=== PATIENT | male | born 1940 | race Caucasian/White ===

== ENCOUNTER 2025-11-08 12:29 | Inpatient (IN) | payer MEDICARE, BC, SELFPAY ==
--- OUTSIDE RECORDS SUMMARY | 2025-01-17 04:30 | XMS_ITS ---
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 Name Role Phone Vipin Mcclure Primary Care Provider KERRI Villalpando Unavailable [phone] Allergies Allergen (clinical drug ingredient) Drug/Non Drug Allergy documented on EMR Reaction Allergy Type Onset Date Status atorvastatin Lipitor Unknown Drug Allergy 05/18/2021 act andrei lisinopril Lisinopril Unknown Drug Allergy 05/18/2021 acti ve Niaspan Reaction:Reacti on 1:Rash Drug Allergy 05/18/2021 active lifitegrast Xiidra Unknown Drug Allergy Activ e atorvastatin Atorvastatin Unknown Drug Allergy 05/18/2021 active losartan Losartan Unknown Drug Allergy 05/18/2021 active Substance with penicillin structure and antibacterial mechanism of action (substance) Penicillins Reaction:Reacti on 1:Rash Drug Allergy 05/18/2021 active REASON FOR VISIT *General care, *General care, Patient presents to the office for at risk diabetic foot care Medications Medication SIG (Take, Route, Frequency, Duration) Notes Start Date End Date Status metFORMIN HCl 500 MG Tablet Oral; Duration: 90 Days Active OlocodeTouch Ultra - Strip USE TO TEST TWICE DAILY NEEDED DIRECTED In Vitro; Duration: 50 Days Active Gemfibrozil 600 MG Tablet TAKE 1 TABLET BY MOUTH TWICE DAILY Oral; Duration: 90 Days Active Farxiga 5 MG Tablet Oral; Duration: 30 Days Active Timolol Maleate 0.5 % Solution INSTILL 1 DROP IN BOTH EYES TWICE DAILY Ophthalmic; Duration: 90 Days Active Social History Social History Additional Details Category Social Info Options Details Migrated Social History Migrated Social History History of tobacco use : , Smoking Status : Never used tobacco , Alcohol intake : Vital Signs Height 71.00 in 01/17/2025 Weight 155 lbs 01/17/2025 BMI 21.62 kg/m2 01/17/2025 Height-cm 180.34 cm 01/17/2025 Weight-kg 70.31 kg 01/17/2025 Encounters Encounter Location Date Provider Diagnosis [facility] [address] [facility] [address] [place], [place] [id number] 01/17/2025 KERRI MCGUIRE Onychomycosis B35.1 ; Ingrowing nail L60.0 ; Pain in right toe(s) M79.674 ; Pain in left toe(s) M79.675 ; Intermittent claudication of both lower extremities due to atherosclerosis I70.213 ; Difficulty in walking involving ankle and foot joint R26.2 and Type 2 diabetes mellitus with other diabetic neurological complication E11.49 Assessments Encounter Date Diagnosis (ICD Code) Assessment Notes Treatment Notes Treatment Clinical Notes Section Notes 01/17/2025 Onychomycosis (ICD-10 - B35.1) 1. Nails 1-5 Bilateral were debrided extensively with nail nippers and emery board, reducing length and girth to pink healthy tissue with any subungual debris and necrotic tissue removed 2. Patient was instructed on the importance of daily visual inspection of both feet. Patient should report to the office if they see any unusual redness, swelling, open sores, ulcerations or signs of infection. Patient should wear protective shoes around the house 3. Advised patient on appropriate shoe gear for protection, healing and overall foot health 01/17/2025 Ingrowing nail (ICD-10 - L60.0) 01/17/2025 Pain in right toe(s) (ICD-10 - M79.674) 01/17/2025 Pain in left toe(s) (ICD-10 - M79.675) 01/17/2025 Intermittent claudication of both lower extremities due to atherosclerosis (ICD-10 - I70.213) 01/17/2025 Difficulty in walking involving ankle and foot joint (ICD-10 - R26.2) 01/17/2025 Type 2 diabetes mellitus with other diabetic neurological complication (ICD-10 - E11.49) 01/17/2025 Other DIABETIC FOOT CARE: Both feet were examined today. Diabetic preventive care provided as documented. Diabetic foot care education discussed today to including: daily foot inspections, appropriate protective shoe gear, and strict glycemic control. Patient to return to the office routinely for preventive diabetic foot care or sooner if patient notices any acute changes. Emollient: Recommend that the patient use an emollient such as [id number] r Eucerin cream, Vanicream, or other lotion to the affected area. Plan Of Treatment Treatment Notes Assessment Notes Onychomycosis 1. Nails 1-5 Bilateral were debrided extensively with nail nippers and emery board, reducing length and girth to pink healthy tissue with any subungual debris and necrotic tissue removed 2. Patient was instructed on the importance of daily visual inspection of both feet. Patient should report to the office if they see any unusual redness, swelling, open sores, ulcerations or signs of infection. Patient should wear protective shoes around the house 3. Advised patient on appropriate shoe gear for protection, healing and overall foot health Other DIABETIC FOOT CARE: Both feet were examined today. Diabetic preventive care provided as documented. Diabetic foot care education discussed today to including: daily foot inspections, appropriate protective shoe gear, and strict glycemic control. Patient to return to the office routinely for preventive diabetic foot care or sooner if patient notices any acute changes. Emollient: Recommend that the patient use an emollient such as [id number] Eucerin cream, Vanicream, or other lotion to the affected area. Next Appt Details Follow Up: 9 weeks, Reason: at risk foot care Provider Name:KERRI Andreia MCGUIRE, 12/11/2025 03:00:00 PM, [address], [place], [place], [id number], History and Physical Notes * HPI (History of Present Illness) Category Sub-Category Detail Notes Category Not es HPI General care Patient presents to the office for diabetic foot care. Patient states that their nails are thickened, elongated and painful. Patient states that it is aggravated by shoe gear. Onset is gradual., Patient denies taking prescription blood thinners but does take a daily aspirin., Date last seen by Dr. Teixeira was August 2024., Initials JMR Examination Category Sub-Category Detail Notes Category Not es Dermatologic Skin findings: Skin is thin, at rophic and lacking pedal hair. Nail pathology: Nails 1-5 bilateral are elongated, thick, discolored, and dystrophic with subungual debris. They are painful to palpation Ingrown Nail Nail is incurvated o n the lateral border of the right great toenail Neurologic Tinel's sign: negative Vibratory: normal [place] 5.07 monofilament dimini shed protective sensation to the level of the digits via 5.07 g swmf bilateral Vascular Dorsalis pedis pulse: 0/4, bilateral Edema: mild, non-pitting, b ilateral Capillary refill: greater than 3 secon ds Posterior tibial pulse: 0/4, bilaterally Musculoskeletal Muscle Strength Muscle strength is 5/5 in regards to dorsiflexion, plantarflexion, inversion, and eversion in bilateral lower extremities. Constitutional Constitutional The patient is a wake, alert, well developed, well groomed and well nourished. Progress Notes * ROHIT VAZQUEZ TDOB:[birth year] (85 yo M)Acc No.[id number]:01/17/2025 Patient: ROHIT HINOJOSA Provider: Julien Mcguire DPM :1940 A ge:84 Y S ex:Male Date:01/17/2025 Address: [id number] Pcp:Vipin Mcclure Subjective: * Chief Complaints: * * General care*General carePatient presents to the office for at risk diabetic foot care * HPI: H PI: General care P atient presents to the office for diabetic foot care. Patient states that their nails are thickened, elongated and painful. Patient states that it is aggravated by shoe gear. Onset is gradual., Patient denies taking prescription blood thinners but does take a daily aspirin., Date last seen by Dr. Teixeira was August 2024., Initials JMR.? * ROS: G eneral / Constitutional: Patient denies f atigue, fever, pain, weight loss. ? C ardiovascular: Patient denies c hest pain, dizziness, palpitations. ? M usculoskeletal: Patient denies a rthritis, joint stiffness, painful joints, childhood foot problems. P atient complains of g ait (walking problems), muscle cramps.? P eripheral Vascular: Patient denies u lceration of feet, blood clots in legs.?Patient complains of d ecreased sensation in extremities, pain / cramping in legs after exertion, cold extremities. P odiatric: Patient denies b urning of the feet, difficulty walking, fever. S kin: Patient denies d ry skin, discoloration, rash on feet, ulcerations. P atient complains of n ail changes, dry skin. N eurologic: Patient denies d izziness, balance difficulty, seizures.?Patient complains of n umbness, burning/ tingling, gait abnormality. * Medical History: Diabetic * Family History: F ather: PRN - Father: . M other: PRN - Mother: . * Social History: M igrated Social History: M igrated Social History: History of tobacco use : , Smoking Status : Never used tobacco , Alcohol intake :. * Medications: T akingFarxiga 5 MG Tablet Oral Timolol Maleate 0.5 % Solution INSTILL 1 DROP IN BOTH EYES TWICE DAILY Ophthalmic OneTouch Ultra - Strip USE TO TEST TWICE DAILY NEEDED DIRECTED In Vitro metFORMIN HCl 500 MG Tablet Oral Gemfibrozil 600 MG Tablet TAKE 1 TABLET BY MOUTH TWICE DAILY Oral Medication List reviewed and reconciled with the patientTaking Farxiga 5 MG Tablet Oral Taking Timolol Maleate 0.5 % Solution INSTILL 1 DROP IN BOTH EYES TWICE DAILY Ophthalmic Taking OneTouch Ultra - Strip USE TO TEST TWICE DAILY NEEDED DIRECTED In Vitro Taking metFORMIN HCl 500 MG Tablet Oral Taking Gemfibrozil 600 MG Tablet TAKE 1 TABLET BY MOUTH TWICE DAILY Oral Medication List reviewed and reconciled with the patient * Allergies: L ipitor: Allergy - Onset Date 05/18/2021isinopril: Allergy - Onset Date 05/18/2021Niaspan: Reaction:Reaction 1:Rash - Allergy - Onset Date 05/18/2021torvastatin: Allergy - Onset Date 05/18/2021osartan: Allergy - Onset Date 05/18/2021enicillins: Reaction:Reaction 1:Rash - Allergy - Onset Date 05/18/2021Xiidra Objective: * Vitals: W t: 155 lbs, Wt-k.31 kg, Ht: 71.00 in, Ht-cm: 180.34 cm, BMI: 21.62 Index, Body Surface Area: 1.87. * Examination: D ermatologic: Skin findings: S kin is thin, atrophic and lacking pedal hair. Nail pathology: N ails 1-5 bilateral are elongated, thick, discolored, and dystrophic with subungual debris. They are painful to palpation. Ingrown Nail N ail is incurvated on the lateral border of the right great toenail. M usculoskeletal: Muscle Strength M uscle strength is 5/5 in regards to dorsiflexion, plantarflexion, inversion, and eversion in bilateral lower extremities.. ? V ascular: Dorsalis pedis pulse: 0 /4, bilateral. Posterior tibial pulse: 0 /4, bilaterally. Capillary refill: g reater than 3 seconds. Edema: m ild, non-pitting, bilateral. ? N eurologic: Tinel's sign: n egative. Vibratory: n ormal. [place] 5.07 monofilament d iminished protective sensation to the level of the digits via 5.07 g swmf bilateral. C onstitutional: Constitutional T he patient is awake, alert, well developed, well groomed and well nourished.. Assessment: * Assessment: 1. I ngrowing nail - L60.0 (Primary) 2 . O nychomycosis - B35.1 ?3. P ain in right toe(s) - M79.674 4 . P ain in left toe(s) - M79.675? 5. I ntermittent claudication of both lower extremities due to atherosclerosis - I70.213 6 . D ifficulty in walking involving ankle and foot joint - R26.2 7 . T ype 2 diabetes mellitus with other diabetic neurological complication - E11.49? Plan: * Treatment: 2. O thers Notes: DIABETIC FOOT CARE: Both feet were examined today. Diabetic preventive care provided as documented. Diabetic foot care education discussed today to including: daily foot inspections, appropriate protective shoe gear, and strict glycemic control. Patient to return to the office routinely for preventive diabetic foot care or sooner if patient notices any acute changes. E mollient: Recommend that the patient use an emollient such as [id number] Eucerin cream, Vanicream, or other lotion to the affected area. * Follow Up: 9 weeks (Reason: at risk foot care) Billing Information: * Visit Code: 45322 Office Visit, Est Pt., Level 3. * Procedure Codes: * Electronic signature of CASSY HUYNH DPM on 11/08/2025 at 03:20 PM SORTER PRICER Sign off status: Pending * Provider: Julien Mcguire DPM Date: 0 01/17/2025 Generated for Emmy nova/Ti/Yogesh on: 01/09/2025 03:20 PM SORTER PRICER
--- OUTSIDE RECORDS SUMMARY | 2025-03-21 04:40 | XMS_ITS ---
Author Organization [facility] Address [address] [place], [place] [id number] Care Team Providers Care Blow Down Helper Name Role Phone Vipin Mcclure Primary Care Provider KERRI Villalpando Unavailable [phone] Allergies Allergen (clinical drug ingredient) Drug/Non Drug [...] 05/18/2021 active REASON FOR VISIT *General care, Patient presents to the office for at risk diabetic foot care, Wound Right Heel Medications Medication SIG (Take, Route, Frequency, Duration) Notes Start Date End Date Status metFORMIN HCl 500 MG Tablet Oral; Duration: 90 Days Active Net[employer] Innov[employer] IncTouch Ultra - Strip USE TO TEST TWICE DAILY NEEDED DIRECTED In Vitro; Duration: 50 Days Active Gemfibrozil 600 MG Tablet TAKE 1 TABLET BY MOUTH TWICE DAILY Oral; Duration: 90 Days Active Doxycycline Hyclate 100 MG Capsule 1 capsule Orally Twice a day; Duration: 7 days 03/21/2025 03/28/2025 Active Timolol Maleate 0.5 % Solution INSTILL 1 DROP IN BOTH EYES TWICE DAILY Ophthalmic; Duration: 90 Days Active Medihoney Wound/Burn Dressing - Gel apply to wound on right heel Externally daily; Duration: 30 days needs 80% medihoney, please order for patient if you do not have he is diabetic with a wound and needs to be treated thank you 03/21/2025 07/19/2025 Active Farxiga 5 MG Tablet Oral; Duration: 30 Days Active Social History Social History Additional Details Category Social Info Options Details Migrated Social History Migrated Social History History of tobacco use : , Smoking Status : Never used tobacco , Alcohol intake : Vital Signs Height 71.00 in 03/21/2025 Weight 155 lbs 03/21/2025 BMI 21.62 kg/m2 03/21/2025 Height-cm 180.34 cm 03/21/2025 Weight-kg 70.31 kg 03/21/2025 Encounters Encounter Location Date Provider Diagnosis [facility] [address] [facility] [address] [place], [place] [phone] 03/21/2025 KERRI MCGUIRE Onychomycosis B35.1 ; Ingrowing nail [...] Treatment Notes Treatment Clinical Notes Section Notes 03/21/2025 Onychomycosis (ICD-10 - B35.1) 1. 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 Diabetic preventive care provided as documented. Diabetic foot care education discussed today to including: daily foot inspections, appropriate protective shoe gear, and strict glycemic control. Patient to return to the office routinely for preventive diabetic foot care or sooner if patient notices any acute changes. 03/21/2025 Other Emollient: Recommend that the patient use an emollient such as dreu-peq-qcvslws Eucerin cream, Vanicream, or other lotion to the affected area. Ulcer Debridement: Right Heel Using a 15 blade, the ulcer was sharply debrided down to bleeding tissue. The nonviable tissue was sharply debrided down to the layer of subcutaneous tissue. A dry sterile dressing was applied. Ulcer Plan of Care: The treatment goals are closure of the ulceration within an appropriate time frame. This will require regular debridements every 2 weeks until skin closure has been met. The patient will come in sooner than 2 weeks if the wound develops any signs of infection or deteriorates. The plan of care will be reviewed every month. If there is no change in the size of the wound, we will re evaluate debridement schedule, topical medications being used, as well as modify techniques for offloading the wound. KELLY GRADING SYSTEM Grade 0: Pre-ulcerative Lesion, healed ulcers, presence of bone deformity Grade 1: Superficial Ulcer without subcutaneous tissue involvement Grade 2: Penetration through the subcutaneous tissue (may expose bone, tendon, ligament or joint capsule) Grade 3: Osteitis, abscess or osteomyelitis Grade 4: Gangrene of the foot. Based on clinical findings, the patient has the following grade ulceration: grade 1 Medihoney prescribed to patient - apply to wound daily The patient was given an antibiotic prescription for Doxycycline 100mg, take until finished to prevent resistance. Plan Of Treatment Medication Medication Name Sig Start Date Stop Date Notes Doxycycline Hyclate 100 MG Capsule 1 capsule Orally Twice a day; Duration: 7 days 03/21/2025 03/28/2025 Medihoney Wound/Burn Dressing - Gel apply to wound on right heel Externally daily; Duration: 30 days 03/21/2025 07/19/2025 needs 80% medihoney, please order for patient if you do not have he is diabetic with a wound and needs to be treated thank you Treatment Notes Assessment Notes Onychomycosis 1. Nails [...] for protection, healing and overall foot health Type 2 diabetes mellitus wit h other diabetic neurological complication DIABETIC FOOT CARE: Both feet were examined today. Diabetic preventive care provided as documented. Diabetic foot care education discussed today to including: daily foot inspections, appropriate protective shoe gear, and strict glycemic control. Patient to return to the office routinely for preventive diabetic foot care or sooner if patient notices any acute changes. Other Emollient: Recommend that the patient use an emollient such as [id number]-[id number] Eucerin cream, Vanicream, or other lotion to the affected area. Ulcer Debridement: Right Heel Using a 15 blade, the ulcer was sharply debrided down to bleeding tissue. The nonviable tissue was sharply debrided down to the layer of subcutaneous tissue. A dry sterile dressing was applied. Ulcer Plan of Care: The treatment goals are closure of the ulceration within an appropriate time frame. This will require regular debridements every 2 weeks until skin closure has been met. The patient will come in sooner than 2 weeks if the wound develops any signs of infection or deteriorates. The plan of care will be reviewed every month. If there is no change in the size of the wound, we will re evaluate debridement schedule, topical medications being used, as well as modify techniques for offloading the wound. KELLY GRADING SYSTEM Grade 0: Pre-ulcerative Lesion, healed ulcers, presence of bone deformity Grade 1: Superficial Ulcer without subcutaneous tissue involvement Grade 2: Penetration through the subcutaneous tissue (may expose bone, tendon, ligament or joint capsule) Grade 3: Osteitis, abscess or osteomyelitis Grade 4: Gangrene of the foot. Based on clinical findings, the patient has the following grade ulceration: grade 1 Medihoney prescribed to patient - apply to wound daily The patient was given an antibiotic prescription for Doxycycline 100mg, take until finished to prevent resistance. Next Appt Details Follow Up: 3 Weeks, Reason: wound check Provider Name:KERRI MCGUIRE, 12/11/2025 03:00:00 PM, [address] [facility] [address], [place], [place], [phone], History and Physical Notes * HPI (History [...] daily aspirin., Date last seen by Dr. Mcclure was October 2024. , Initials ars New wound on right heel, noticed about a week ago. Denies injury. Examination Category Sub-Category Detail Notes Category Not es Dermatologic Skin findings: Skin is thin, at rophic and lacking pedal hair. Nail pathology: Nails 1-5 bilateral are elongated, thick, discolored, and dystrophic with subungual debris. They are painful to palpation Ulcer: There is an ulcerati on present on the medial posterior heel of the right foot. , The ulceration measures 0.5cm x 0.4cm, The ulcer has, no signs of infection, The wound base is, granular, The borders are, healthy, The drainage is, serous, The wound has no foul odor., The wound, does not undermine Ingrown Nail Nail is incurvated o n the lateral border of the right great toenail Neurologic Tinel's sign: negative Vibratory: normal [place] 5.07 monofilament dimini shed protective sensation to [...] ROHIT VAZQUEZ TDOB:[birth year] (85 yo M)Acc No.[id number]:03/21/2025 Patient: ROHIT HINOJOSA Provider: Julien Mcguire DPM :1940 A ge:85 Y S ex:Male Date:03/21/2025 Address: [address], [id number] Pcp:Vipin Mcclure Subjective: * Chief Complaints: * * General carePatient presents to the office for at risk diabetic foot careWound Right Heel * HPI: H PI: General care P atient presents to the office for diabetic foot care. Patient states that their nails are thickened, elongated and painful. Patient states that it is aggravated by shoe gear. Onset is gradual., Patient denies taking prescription blood thinners but does take a daily aspirin., Date last seen by Dr. Mcclure was October 2024. , Initials ars.? New wound on right heel, noticed about a week ago. Denies injury. * ROS: G eneral / Constitutional: Patient [...] subungual debris. They are painful to palpation. Ulcer: T here is an ulceration present on the medial posterior heel of the right foot. , The ulceration measures 0.5cm x 0.4cm, The ulcer has, no signs of infection, The wound base is, granular, The borders are, healthy, The drainage is, serous, The wound has no foul odor., The wound, does not undermine. Ingrown Nail N ail is incurvated on [...] Tinel's sign: n egative. Vibratory: n ormal. [place] 5.07 monofilament d iminished protective sensation to [...] complication - E11.49? Plan: * Treatment: 2. T ype 2 diabetes mellitus with other diabetic neurological complication Notes: DIABETIC FOOT CARE: Both feet were examined today. Diabetic preventive care provided as documented. Diabetic foot care education discussed today to including: daily foot inspections, appropriate protective shoe gear, and strict glycemic control. Patient to return to the office routinely for preventive diabetic foot care or sooner if patient notices any acute changes. 3. O thers Start Medihoney Wound/Burn Dressing Gel, -, apply to wound on right heel, Externally, daily, 30 days, 1 Applicator, Refills 3, Notes to Pharmacist: needs 80% medihoney, please order for patient if you do not have he is diabetic with a wound and needs to be treated thank you; S tart Doxycycline Hyclate Capsule, 100 MG, 1 capsule, Orally, Twice a day, 7 days, 14 Capsule, Refills 0. Notes: E mollient: Recommend that the patient use an emollient such as nfqx-yqh-ejcfasu Eucerin cream, Vanicream, or other lotion to the affected area. U lcer Debridement: R ight Heel Using a 15 blade, the ulcer was sharply debrided down to bleeding tissue. The nonviable tissue was sharply debrided down to the layer of subcutaneous tissue. A dry sterile dressing was applied. U lcer Plan of Care: The treatment goals are closure of the ulceration within an appropriate time frame. This will require regular debridements every 2 weeks until skin closure has been met. The patient will come in sooner than 2 weeks if the wound develops any signs of infection or deteriorates. The plan of care will be reviewed every month. If there is no change in the size of the wound, we will re evaluate debridement schedule, topical medications being used, as well as modify techniques for offloading the wound. KELLY GRADING SYSTEM Grade 0: Pre-ulcerative Lesion, healed ulcers, presence of bone deformity Grade 1: Superficial Ulcer without subcutaneous tissue involvement Grade 2: Penetration through the subcutaneous tissue (may expose bone, tendon, ligament or joint capsule) Grade 3: Osteitis, abscess or osteomyelitis Grade 4: Gangrene of the foot. Based on clinical findings, the patient has the following grade ulceration: g serg veliz prescribed to patient - apply to wound daily T he patient was given an antibiotic prescription for Doxycycline 100mg, take until finished to prevent resistance. * Follow Up: 3 Weeks (Reason: wound check) Billing Information: * Procedure Codes: * Electronic signature of CASSY HUYNH DPM on 11/08/2025 at 03:21 PM GAS ANALYST Sign off status: Pending * Provider: Julien Mcguire DPM Date: 0 03/21/2025 Generated for Emmy nova/Ti/Yogesh on: 01/09/2025 03:21 PM GAS ANALYST
--- OUTSIDE RECORDS SUMMARY | 2025-04-11 04:30 | XMS_ITS ---
Author Organization [facility] Address [address] [place], [place] [phone] Care Team Providers Care Plug Drill Operator Name Role Phone Vipin Mcclure Primary Care Provider KERRI Villalpando Unavailable [phone] Allergies Allergen (clinical drug ingredient) Drug/Non Drug [...] Drug Allergy 05/18/2021 active REASON FOR VISIT *Wound check Medications Medication SIG (Take, Route, Frequency, Duration) Notes Start Date End Date Status OneTouch Ultra - Strip USE TO TEST TWICE DAILY NEEDED DIRECTED In Vitro; Duration: 50 Days Active Timolol Maleate 0.5 % Solution INSTILL 1 DROP IN BOTH EYES TWICE DAILY Ophthalmic; Duration: 90 Days Active Gemfibrozil 600 MG Tablet TAKE 1 TABLET BY MOUTH TWICE DAILY Oral; Duration: 90 Days Active metFORMIN HCl 500 MG Tablet Oral; Duration: 90 Days Active Medihoney Wound/Burn Dressing [...] Never used tobacco , Alcohol intake : Encounters Encounter Location Date Provider Diagnosis [facility] [address] [place], [place] [phone] 04/11/2025 KERRI MCGUIRE Ingrowing nail L60.0 ; 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 ; Onychomycosis B35.1 ; Pain in right toe(s) M79.674 ; Pain in left toe(s) M79.675 ; Intermittent claudication of both lower extremities due to atherosclerosis I70.213 ; Difficulty in walking involving ankle and foot joint R26.2 and Type 2 diabetes mellitus with other diabetic neurological complication E11.49 Assessments Encounter Date Diagnosis (ICD Code) Assessment Notes Treatment Notes Treatment Clinical Notes Section Notes 04/11/2025 Ingrowing nail (ICD-10 - L60.0) 04/11/2025 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 FUNGAL TOENAILS: Discussed various treatment options for fungal toenails including debridement, topical antifungals, oral antifungals, toenail avulsion, or toenail matrixectomy.fab 2. Patient was instructed on the importance of daily visual inspection of both feet. Patient should report to the office if they see any unusual redness, swelling, open sores, ulcerations or signs of infection. Patient should wear protective shoes around the house 3. Advised patient on appropriate shoe gear for protection, healing and overall foot health 04/11/2025 Pain in right toe(s) (ICD-10 - M79.674) 04/11/2025 Pain in left toe(s) (ICD-10 - M79.675) 04/11/2025 Intermittent claudication of both lower extremities due to atherosclerosis (ICD-10 - I70.213) 04/11/2025 Difficulty in walking involving ankle and foot joint (ICD-10 - R26.2) 04/11/2025 Type 2 diabetes mellitus with other diabetic [...] sooner if patient notices any acute changes. 04/11/2025 Other Emollient: Recommend that the patient use an emollient such as givv-tcp-murwvdq Eucerin cream, Vanicream, or other lotion to [...] to patient - apply to wound daily Plan Of Treatment Treatment Notes Assessment Notes Onychomycosis 1. FUNGAL TOENAILS: Discussed various treatment options for fungal toenails including debridement, topical antifungals, oral antifungals, toenail avulsion, or toenail matrixectomy.fab 2. Patient was instructed on the importance [...] the patient use an emollient such as gwen-xzh-cweeodj Eucerin cream, Vanicream, or other lotion to [...] to patient - apply to wound daily Next Appt Details Follow Up: 3 Weeks, Reason: wound check Provider Name:KERRI MCGUIRE, 12/11/2025 03:00:00 PM, [address] [facility] [address], [place], [phone], History and Physical Notes * HPI (History of Present Illness) Category Sub-Category Detail Notes Category Not es HPI Follow Up Visit Patient presents for follow-up visit for a wound on his right heel. Patient states their problem is, improving. Patient states that the doxycycline made him sick, but he was able to finish it, and it has helped. MA: ars Examination Category Sub-Category Detail Notes Category Not es Dermatologic Skin findings: Skin is thin, at rophic and lacking pedal hair. Nail pathology: Nails 1-5 bilateral are elongated, thick, discolored, and dystrophic with subungual debris. They are painful to palpation Ulcer: There is an ulcerati on present on the medial posterior heel of the right foot. , The ulceration measures 0.3cm x 0.3cm, The ulcer has, no signs of infection, The wound base is, granular, The borders are, healthy, The drainage is, serous, The wound has no foul odor., The wound, does not undermine Ingrown Nail Nail is incurvated o n the lateral border of the right great toenail Neurologic Tinel's sign: negative Vibratory: normal [place] 5.07 monofilament dimini shed protective sensation to [...] ROHIT VAZQUEZ TDOB:[birth year] (85 yo M)Acc No.[id number]:04/11/2025 Patient: ROHIT HINOJOSA T Provider: Julien Mcguire DPM :1940 A ge:85 Y S ex:Male Date:04/11/2025 Address: [id number] Pcp:Vipin Mcclure Subjective: * Chief Complaints: * * Wound check * HPI: H PI: Follow Up Visit P malaient presents for follow-up visit for a wound on his right heel. Patient states their problem is, improving. Patient states that the doxycycline made him sick, but he was able to finish it, and it has helped. MA: ars. * ROS: G eneral / Constitutional: Patient [...] 1 TABLET BY MOUTH TWICE DAILY Oral Medihoney Wound/Burn Dressing - Gel apply to wound on right heel Externally daily , stop date 07/19/2025, Notes to Pharmacist: needs 80% serafinhobreann, please order for patient if you do not have he is diabetic with a wound and needs to be treated thank youMedication List reviewed and reconciled with the patientTaking Farxiga 5 MG Tablet Oral Taking Timolol Maleate 0.5 % Solution INSTILL 1 DROP IN BOTH EYES TWICE DAILY Ophthalmic Taking OneTouch Ultra - Strip USE TO TEST TWICE DAILY NEEDED DIRECTED In Vitro Taking metFORMIN HCl 500 MG Tablet Oral Taking Gemfibrozil 600 MG Tablet TAKE 1 TABLET BY MOUTH TWICE DAILY Oral Taking Medihoney Wound/Burn Dressing - Gel apply to wound on right heel Externally daily , stop date 07/19/2025, Notes to Pharmacist: needs 80% medihoney, please order for patient if you do not have he is diabetic with a wound and needs to be treated thank youMedication List reviewed and reconciled with the patient * Allergies: L ipitor: Allergy - Onset Date 05/18/2021isinopril: Allergy - Onset Date 05/18/2021Niaspan: Reaction:Reaction 1:Rash - Allergy - Onset Date 05/18/2021torvastatin: Allergy - Onset Date 05/18/2021osartan: Allergy - Onset Date 05/18/2021enicillins: Reaction:Reaction 1:Rash - Allergy - Onset Date 05/18/2021Xiidra Objective: * Examination: D ermatologic: Skin findings: S kin is thin, atrophic and lacking pedal hair. Nail pathology: N ails 1-5 bilateral are elongated, thick, discolored, and dystrophic with subungual debris. They are painful to palpation. Ulcer: T here is an ulceration present on the medial posterior heel of the right foot. , The ulceration measures 0.3cm x 0.3cm, The ulcer has, no signs of infection, [...] Tinel's sign: n egative. Vibratory: n ormal. [place] 5.07 monofilament d iminished protective sensation to the level of the digits via 5.07 g swmf bilateral. C onstitutional: Constitutional T he patient is awake, alert, well developed, well groomed and well nourished.. Assessment: * Assessment: 1. 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 I ngrowing nail - L60.0 3 . O nychomycosis - B35.1 4 . P ain in right toe(s) - M79.674 5 . P ain in left toe(s) - M79.675 6 . I ntermittent claudication of both lower extremities due to atherosclerosis - I70.213 7 . D ifficulty in walking involving ankle and foot joint - R26.2 8 . 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 T ype 2 [...] notices any acute changes. 3. O thers Notes: E mollient: Recommend that the patient use an emollient such as bfey-utt-cnujzto Eucerin cream, Vanicream, or other lotion to [...] patient has the following grade ulceration: g rade 1 M keren prescribed to patient - apply to wound daily * Procedure Codes: 1 1042 DEBRIDE SKIN/TISSUE * Follow Up: 3 Weeks (Reason: wound check) Billing Information: * Procedure Codes: 10941 DEBRIDE SKIN/TISSUE. * Electronic signature of CASSY HUYNH DPM on 11/08/2025 at 03:25 PM DRY WALL APPLICATOR Sign off status: Pending * Provider: Julien Mcguire DPM Date: 0 04/11/2025 Generated for Emmy noav/Ti/Stevenitting on: 1 01/09/2025 03:25 PM DRY WALL APPLICATOR
--- OUTSIDE RECORDS SUMMARY | 2025-05-01 07:00 | XMS_ITS ---
Author Organization [facility] Address [address] [place], [place] [id number] Care Team Providers Care Cutter Hot Knife Name Role Phone Vipin Mcclure Primary Care Provider KERRI Villalpando Unavailable [phone] Allergies Allergen (clinical drug ingredient) Drug/Non Drug [...] Allergy 05/18/2021 active REASON FOR VISIT *Wound check, *Wound check right heel Medications Medication SIG (Take, Route, Frequency, Duration) Notes Start Date End Date Status Timolol Maleate 0.5 % Solution INSTILL 1 DROP IN BOTH EYES TWICE DAILY Ophthalmic; Duration: 90 Days Active Gemfibrozil 600 MG Tablet TAKE 1 TABLET BY MOUTH TWICE DAILY Oral; Duration: 90 Days Active Medihoney Wound/Burn Dressing - Gel apply to wound on right heel Externally daily; Duration: 30 days needs 80% medihoney, please order for patient if you do not have he is diabetic with a wound and needs to be treated thank you 03/21/2025 07/19/2025 Active OneTouch Ultra - Strip USE TO TEST TWICE DAILY NEEDED DIRECTED In Vitro; Duration: 50 Days Active metFORMIN HCl 500 MG Tablet Oral; Duration: 90 Days Active Farxiga 5 MG Tablet Oral; Duration: 30 Days Active Social History Social History Additional Details Category Social Info Options Details Migrated Social History Migrated Social History History of tobacco use : , Smoking Status : Never used tobacco , Alcohol intake : Encounters Encounter Location Date Provider Diagnosis [facility] [address] [place], [place] [phone] 05/01/2025 KERRI MCGUIRE Ingrowing nail L60.0 ; Non-pressure [...] Treatment Notes Treatment Clinical Notes Section Notes 05/01/2025 Ingrowing nail (ICD-10 - L60.0) 05/01/2025 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 FUNGAL TOENAILS: [...] for protection, healing and overall foot health 05/01/2025 Pain in right toe(s) (ICD-10 - M79.674) 05/01/2025 Pain in left toe(s) (ICD-10 - M79.675) 05/01/2025 Intermittent claudication of both lower extremities due to atherosclerosis (ICD-10 - I70.213) 05/01/2025 Difficulty in walking involving ankle and foot joint (ICD-10 - R26.2) 05/01/2025 Type 2 diabetes mellitus with other diabetic [...] sooner if patient notices any acute changes. 05/01/2025 Other Emollient: Recommend that the patient use an emollient such as oikh-miq-datnudl Eucerin cream, Vanicream, or other lotion to [...] has the following grade ulceration: grade 1 Continue medihoney- apply to wound daily, apply gauze and paper tape or band-aid Instructed patient to stop the peroxide on the wound as this causes more damage and irritation to the skin, wash with soap and water or wound wash solution instead before applying medihoney. Plan Of Treatment Treatment Notes Assessment Notes [...] the patient use an emollient such as lihu-aim-vsjuclk Eucerin cream, Vanicream, or other lotion to [...] has the following grade ulceration: grade 1 Continue medihoney- apply to wound daily, apply gauze and paper tape or band-aid Instructed patient to stop the peroxide on the wound as this causes more damage and irritation to the skin, wash with soap and water or wound wash solution instead before applying medihoney. Next Appt Details Follow Up: 4 Weeks, Reason: wound check and at risk foot care Provider Name:KERRI MCGUIRE, 12/11/2025 03:00:00 PM, [address], [place], [place], [phone], History and Physical Notes * HPI (History of Present Illness) Category Sub-Category Detail Notes Category Not es HPI Follow Up Visit Patient presents for follow up visit for wound check., Patient states their problem is, improving. Still a little sensitive. Has slight pain but not too bad., MA: mf States he has been putting peroxide on the wound daily then medihoney and bandaid Examination Category Sub-Category Detail Notes Category Not [...] toenail Neurologic Tinel's sign: negative Vibratory: normal [place] 5.07 monofilament dimini shed protective sensation to [...] ROHIT VAZQUEZ TDOB:[birth year] (85 yo M)Acc No.[id number]:05/01/2025 Patient: Dakota MATHEWAMAURYPIETER BUTTEN Cassandra Provider: Julien Mcguire DPM :1940 A ge:85 Y S ex:Male Date:05/01/2025 [address] [id number] Pcp:Vipin Mcclure Subjective: * Chief Complaints: * * Wound check*Wound check right heel * HPI: H PI: Follow Up Visit P atient presents for follow up visit for wound check., Patient states their problem is, improving. Still a little sensitive. Has slight pain but not too bad., MA: mf. States he has been putting peroxide on the wound daily then medihoney and bandaid. * ROS: G eneral / Constitutional: Patient [...] tingling, gait abnormality. * Medical History: Diabetic Medical History Verified * Family History: F ather: PRN - Father: . M other: PRN - Mother: . F amily History Verified.. * Social History: M igrated Social History: M igrated Social History: History of tobacco use : , Smoking Status : Never used tobacco , Alcohol intake :. Social History Verified. * Medications: T akingFarxiga 5 MG Tablet [...] date 07/19/2025, Notes to Pharmacist: needs 80% hung, please order for patient if you do [...] date 07/19/2025, Notes to Pharmacist: needs 80% hung, please order for patient if you do not have he is diabetic with a wound and needs to be treated thank youMedication List reviewed and reconciled with the patient * Allergies: L ipitor: Allergy - Onset Date 05/18/2021isinopril: Allergy - Onset Date 05/18/2021Niaspan: Reaction:Reaction 1:Rash - Allergy - Onset Date 1Atorvastatin: Allergy - Onset Date 05/18/2021osartan: Allergy - Onset Date 05/18/2021enicillins: Reaction:Reaction 1:Rash - Allergy - Onset Date 05/18/2021XiidrayesAllergies Verified. Objective: * Examination: D ermatologic: Skin findings: [...] Tinel's sign: n egative. Vibratory: n ormal. [place] 5.07 monofilament d iminished protective sensation to [...] the patient use an emollient such as negm-gpw-duhwkyd Eucerin cream, Vanicream, or other lotion to [...] the following grade ulceration: g rade 1 Continue medihoney- apply to wound daily, apply gauze and paper tape or band-aid Instructed patient to stop the peroxide on the wound as this causes more damage and irritation to the skin, wash with soap and water or wound wash solution instead before applying medihoney. * Procedure Codes: 1 1042 DEBRIDE SKIN/TISSUE * Follow Up: 4 Weeks (Reason: wound check and at risk foot care) Billing Information: * Procedure Codes: 33135 DEBRIDE SKIN/TISSUE. * Electronic signature of CASSY HUYNH DPM on 11/08/2025 at 03:20 PM STRAP MAKER Sign off status: Pending * Provider: Julien Mcguire DPM Date: 0 05/01/2025 Generated for Emmy nova/Ti/Stevenitting on: 1 01/09/2025 03:20 PM STRAP MAKER
--- OUTSIDE RECORDS SUMMARY | 2025-05-30 05:20 | XMS_ITS ---
Author Organization [facility] Address [address] [place], [place] [id number] Care Team Providers Care Human Geography Instructor Name Role Phone Vipin Mcclure Primary Care Provider KERRI Villalpando Unavailable [phone] Allergies Allergen (clinical drug ingredient) Drug/Non Drug [...] 05/18/2021 active REASON FOR VISIT *General care, *Wound check right heel, Patient presents for at risk diabetic foot care Medications Medication SIG (Take, Route, Frequency, Duration) Notes Start Date End Date Status Medihoney Wound/Burn Dressing - Gel apply to wound on right heel Externally daily; Duration: 30 days needs 80% medihoney, please order for patient if you do not have he is diabetic with a wound and needs to be treated thank you 03/21/2025 07/19/2025 Active metFORMIN HCl 500 MG Tablet Oral; Duration: 90 Days Active Gemfibrozil 600 MG Tablet TAKE 1 TABLET BY MOUTH TWICE DAILY Oral; Duration: 90 Days Active Timolol Maleate 0.5 % Solution INSTILL 1 DROP IN BOTH EYES TWICE DAILY Ophthalmic; Duration: 90 Days Active OneTouch Ultra - Strip USE TO TEST TWICE DAILY NEEDED DIRECTED In Vitro; Duration: 50 Days Active Farxiga 5 MG Tablet Oral; Duration: 30 Days Active Social History Social History Additional Details Category Social Info Options Details Migrated Social History Migrated Social History History of tobacco use : , Smoking Status : Never used tobacco , Alcohol intake : Vital Signs Height 71.00 in 05/30/2025 Weight 155 lbs 05/30/2025 BMI 21.62 kg/m2 05/30/2025 Height-cm 180.34 cm 05/30/2025 Weight-kg 70.31 kg 05/30/2025 Encounters Encounter Location Date Provider Diagnosis [facility] [address] [facility] [address] [place], [place] [phone] 05/30/2025 KERRI MCGUIRE 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 ; Onychomycosis B35.1 ; Ingrowing nail L60.0 ; [...] Treatment Notes Treatment Clinical Notes Section Notes 05/30/2025 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 Referral to wound center. 05/30/2025 Onychomycosis (ICD-10 - B35.1) 1. FUNGAL TOENAILS: Discussed various treatment options for fungal toenails including debridement, topical antifungals, oral antifungals, toenail avulsion, or toenail matrixectomy. 2. Patient was instructed on the importance of daily visual inspection of both feet. Patient should report to the office if they see any unusual redness, swelling, open sores, ulcerations or signs of infection. Patient should wear protective shoes around the house 3. Advised patient on appropriate shoe gear for protection, healing and overall foot health 05/30/2025 Ingrowing nail (ICD-10 - L60.0) 05/30/2025 Pain in right toe(s) (ICD-10 - M79.674) 05/30/2025 Pain in left toe(s) (ICD-10 - M79.675) 05/30/2025 Intermittent claudication of both lower extremities due to atherosclerosis (ICD-10 - I70.213) 05/30/2025 Difficulty in walking involving ankle and foot joint (ICD-10 - R26.2) 05/30/2025 Type 2 diabetes mellitus with other diabetic [...] sooner if patient notices any acute changes. 05/30/2025 Other Emollient: Recommend that the patient use an emollient such as vjun-xed-qannwk r Eucerin cream, Vanicream, or other lotion to the affected area. Plan Of Treatment Treatment Notes Assessment Notes Non-pressure chronic ulcer o f right heel and midfoot limited to breakdown of skin 1. Referral to wound center. Onychomycosis 1. FUNGAL TOENAILS: Discussed various treatment options for fungal toenails including debridement, topical antifungals, oral antifungals, toenail avulsion, or toenail matrixectomy. 2. Patient was instructed on the importance [...] the patient use an emollient such as htvo-mnt-cxtdose Eucerin cream, Vanicream, or other lotion to the affected area. Next Appt Details Follow Up: 9 weeks, Reason: at risk foot care Provider Name:KERRI MCGUIRE, 12/11/2025 03:00:00 PM, [address] [facility] [address], [place], [place], [phone], History and Physical Notes * HPI (History of Present Illness) Category Sub-Category Detail Notes Category Not es HPI General care Patient presents to the office for diabetic foot care. Patient states that their nails are thickened, elongated and painful. Patient states that it is aggravated by shoe gear. Onset is gradual., Patient is taking prescription blood thinners., Date last seen by Dr. Mcclure was 04/2025. , Initials KB Examination Category Sub-Category Detail Notes Category Not es Dermatologic Skin findings: Skin is thin, at rophic and lacking pedal hair. Nail pathology: Nails 1-5 bilateral are elongated, thick, discolored, and dystrophic with subungual debris. They are painful to palpation , Ulcer: There is an ulcerati on present on the medial posterior heel of the right foot. , The ulceration measures 0.3cm x 0.3cm, The ulcer has, no signs of infection, The wound base is, granular, The borders are, healthy, The drainage is, serous, The wound has no foul odor., The wound, does not undermine. Ingrown Nail Nail is incurvated o n the lateral border of the right great toenail Neurologic Tinel's sign: negative Vibratory: normal [place] 5.07 monofilament dimini shed protective sensation to the level of the digits via 5.07 g swmf bilateral Vascular Dorsalis pedis pulse: 0/4, bilateral Edema: mild, non-pitting, b ilateral Capillary refill: greater than 3 secon ds Posterior tibial pulse: 1/4, bilaterally Musculoskeletal Muscle Strength Muscle strength is 5/5 in regards to dorsiflexion, plantarflexion, inversion, and eversion in bilateral lower extremities Constitutional Constitutional The patient is a wake, alert, well developed, well groomed and well nourished. Progress Notes * ROHIT VAZQUEZ TDOB:[birth year] (85 yo M)Acc No.[id number]:05/30/2025 Patient: Dakota ROHIT DAVIS Provider: Julien Mcguire DPM :1940 A ge:85 Y S ex:Male Date:05/30/2025 Address: [address], [id number] Pcp:Vipin Mcclure Subjective: * Chief Complaints: * * General care*Wound check right heelPatient presents for at risk diabetic foot care * HPI: H PI: General care P atient presents to the office for diabetic foot care. Patient states that their nails are thickened, elongated and painful. Patient states that it is aggravated by shoe gear. Onset is gradual., Patient is taking prescription blood thinners., Date last seen by Dr. Mcclure was 04/2025. , Initials KB. * ROS: G eneral / Constitutional: Patient denies f atigue, fever, pain, weight loss,. ? C ardiovascular: Patient denies c hest pain, dizziness, palpitations, . ? M usculoskeletal: Patient denies a rthritis, joint stiffness, painful joints, childhood foot problems. P atient complains of g ait (walking problems), muscle cramps,.? P eripheral Vascular: Patient denies u lceration of feet, blood clots in legs.?Patient complains of d ecreased sensation in extremities, pain / cramping in legs after exertion, cold extremities. P odiatric: Patient denies b urning of the feet, difficulty walking, fever, burning of the feet, difficulty walking, fever. S kin: Patient denies d ry skin, discoloration, rash on feet, ulcerations. P atient complains of n ail changes, dry skin, nail changes, dry skin. ? N eurologic: Patient denies d izziness, balance difficulty, seizures.?Patient complains of n umbness, burning/ tingling, gait abnormality. * Medical History: Diabetic Medical History Verified * Surgical History: Denies Past Surgical History. Surgical History verified. * Hospitalization/Major Diagno stic Procedure: Denies Past Hospitalization. Hospitalization Verified. * Family History: F ather: PRN - [...] date 07/19/2025, Notes to Pharmacist: [facility] [address] please order for patient if you do [...] date 07/19/2025, Notes to Pharmacist: needs 80% [employer] base mdl, please order for patient if you do [...] - Onset Date 05/18/2021XiidrayesAllergies Verified. Objective: * Vitals: W t: 155 lbs, Wt-k.31 kg, Ht: 71.00 in, Ht-cm: 180.34 cm, BMI: 21.62 Index, Body Surface Area: 1.87. * Examination: D ermatologic: Skin findings: S kin is thin, atrophic and lacking pedal hair. Nail pathology: N ails 1-5 bilateral are elongated, thick, discolored, and dystrophic with subungual debris. They are painful to palpation , . Ulcer: T here is an ulceration present on the medial posterior heel of the right foot. , T he ulceration measures 0.3cm x 0.3cm, T he ulcer has, n o signs of infection, T he wound base is, g ranular, T he borders are, h ealthy, T he drainage is, s erous, T he wound has no foul odor., T he wound, d oes not undermine. . Ingrown Nail N ail is incurvated on the lateral border of the right great toenail . M usculoskeletal: Muscle Strength M uscle strength is 5/5 in regards to dorsiflexion, plantarflexion, inversion, and eversion in bilateral lower extremities. ? V ascular: Dorsalis pedis pulse: 0 /4, bilateral. Posterior tibial pulse: 1 /4, bilaterally . Capillary refill: g reater than 3 seconds. Edema: m ild, non-pitting, bilateral. ? N eurologic: Tinel's sign: n egative . Vibratory: n ormal. [place] 5.07 monofilament d iminished protective sensation to the level of the digits via 5.07 g swmf bilateral. C onstitutional: Constitutional T he patient is awake, alert, well developed, well groomed and well nourished. . Assessment: * Assessment: 1. 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 O nychomycosis - B35.1 3 . I ngrowing nail - L60.0 4 . P ain in right toe(s) - M79.674 5 . P ain in left toe(s) - M79.675 6 . I ntermittent claudication of both lower extremities due to atherosclerosis - I70.213 7 . D ifficulty in walking involving ankle and foot joint - R26.2 8 . 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 O nychomycosis Notes: 1. FUNGAL TOENAILS: Discussed various treatment options for fungal toenails including debridement, topical antifungals, oral antifungals, toenail avulsion, or toenail matrixectomy. 2. Patient was instructed on the importance of daily visual inspection of both feet. Patient should report to the office if they see any unusual redness, swelling, open sores, ulcerations or signs of infection. Patient should wear protective shoes around the house 3 . Advised patient on appropriate shoe gear for protection, healing and overall foot health? 3. T ype 2 diabetes mellitus with other [...] sooner if patient notices any acute changes. 4. O thers Notes: E mollient: Recommend that the patient use an emollient such as pesc-wip-ecezlnq Eucerin cream, Vanicream, or other lotion to the affected area. * Follow Up: 9 weeks (Reason: at risk foot care) Billing Information: * Procedure Codes: * Electronic signature of CASSY HUYNH DPM on 11/08/2025 at 03:24 PM WEATHER ANALYST Sign off status: Pending * Provider: Julien Mcguire DPM Date: 0 05/30/2025 Generated for Emmy nova/Ti/Yogesh on: 01/09/2025 03:24 PM WEATHER ANALYST
--- OUTSIDE RECORDS SUMMARY | 2025-08-01 05:20 | XMS_ITS ---
Author Organization [facility] Address [address] [place], [place] [id number] Care Team Providers Care Garnisher Name Role Phone Vipin Mcclure Primary Care Provider KERRI Villalpando Unavailable [phone] Allergies Allergen (clinical drug ingredient) Drug/Non Drug [...] REASON FOR VISIT *General care, *General care, *Wound check right heel, Patient presents for at risk diabetic foot care Medications Medication SIG (Take, Route, Frequency, Duration) Notes Start Date End Date Status Farxiga 5 MG Tablet Oral; Duration: 30 [...] TWICE DAILY Oral; Duration: 90 Days Active Social History Social History Additional Details Category Social Info Options Details Migrated Social History Migrated Social History History of tobacco use : , Smoking Status : Never used tobacco , Alcohol intake : Encounters Encounter Location Date Provider Diagnosis [facility] [address] [facility] [address] [place], [place] [id number] 08/01/2025 KERRI MCGUIRE Non-pressure chronic ulcer of right [...] Treatment Notes Treatment Clinical Notes Section Notes 08/01/2025 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 NAIL DEBRIDEMENT: Nails 1-5 Bilateral were debrided extensively with [...] for protection, healing and overall foot health 08/01/2025 Ingrowing nail (ICD-10 - L60.0) 08/01/2025 Pain in right toe(s) (ICD-10 - M79.674) 08/01/2025 Pain in left toe(s) (ICD-10 - M79.675) 08/01/2025 Intermittent claudication of both lower extremities due to atherosclerosis (ICD-10 - I70.213) 08/01/2025 Difficulty in walking involving ankle and foot joint (ICD-10 - R26.2) 08/01/2025 Type 2 diabetes mellitus with other diabetic [...] sooner if patient notices any acute changes. 08/01/2025 Other Emollient: Recommend that the patient use an emollient such as frkq-jvi-titpek r Eucerin cream, Vanicream, or other lotion to the affected area. Plan Of Treatment Treatment Notes Assessment Notes Onychomycosis 1. NAIL DEBRIDEMENT: Nails 1-5 Bilateral were debrided extensively with [...] the patient use an emollient such as jvlh-wka-njozrdp Eucerin cream, Vanicream, or other lotion to the affected area. Next Appt Details Follow Up: 9 weeks, Reason: at risk foot care Provider Name:KERRI Andreia MCGUIRE, 12/11/2025 03:00:00 PM, [address], [place], [place], [phone], History and Physical Notes * HPI (History [...] Date last seen by Dr. Mcclure was 03/2025., Initials mf Wound has healed. 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 Examination Category Sub-Category Detail Notes Category Not es Dermatologic Skin findings: Skin is thin, at rophic and lacking pedal hair. Nail pathology: Nails 1-5 bilateral are elongated, thick, discolored, and dystrophic with subungual debris. They are painful to palpation , Ulcer: There is no evidence of ulceration noted at this time to right heel Ingrown Nail Nail is incurvated o n the lateral border of the right great toenail Neurologic Tinel's sign: negative Vibratory: normal [place]-Weinstin 5.07 monofilament dimini shed protective sensation to [...] groomed and well nourished. Progress Notes * TAYOLR, ROHIT TDOB:[birth year] (85 yo M)Acc No.[id number]:08/01/2025 Patient: ROHIT HINOJOSA Provider: Julien Mcguire DPM :1940 A ge:85 Y S ex:Male Date:08/01/2025 Address: [address], [id number] Pcp:Vipin Mcclure Subjective: * Chief Complaints: * * General care*General care*Wound check right heelPatient presents for at [...] Date last seen by Dr. Mcclure was 03/2025., Initials mf. Wound has healed. 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 * ROS: G eneral / Constitutional: Patient [...] palpation , . Ulcer: T here is no evidence of ulceration noted at this time to right heel. Ingrown Nail N ail is incurvated on [...] sign: n egative . Vibratory: n ormal. [place]-Weinstin 5.07 monofilament d iminished protective sensation to the level of the digits via 5.07 g swmf bilateral. C onstitutional: Constitutional T he patient is awake, alert, well developed, well groomed and well nourished. . Assessment: * Assessment: 1. O nychomycosis - B35.1 (Primary) 2 . 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 I ngrowing nail - L60.0 [...] the patient use an emollient such as tvtk-zhu-bbtaqyn Eucerin cream, Vanicream, or other lotion to the affected area. * Preventive Medicine: Screenings: F all risk screening F all Risk Assessment: O ne fall with injury in the past year, P palomo of Care: D ocumented, T ype of fall plan of care: B alance, strength and gait training or instruction provided. * Follow Up: 9 weeks (Reason: at risk foot care) Billing Information: * Visit Code: 83320 Office Visit, Est Pt., Level 3. * Procedure Codes: * Electronic signature of CASSY HUYNH DPM on 11/08/2025 at 03:20 PM TRIM MECHANIC Sign off status: Pending * Provider: Julien Mcguire DPM Date: 0 08/01/2025 Generated for Emmy nova/Ti/Yogesh on: 01/09/2025 03:20 PM TRIM MECHANIC
--- OUTSIDE RECORDS SUMMARY | 2025-10-09 07:00 | XMS_ITS ---
Author Organization [facility] Address [address] [place], [place] [id number] Care Team Providers Care Washing Machine Operator Name Role Phone Vipin Mcclure Primary Care Provider KERRI Villalpando Unavailable [phone] Allergies Allergen (clinical drug ingredient) Drug/Non Drug [...] REASON FOR VISIT *General care, Patient presents for at risk diabetic foot [...] intake : Vital Signs Height 71.00 in 10/09/2025 Weight 155 lbs 10/09/2025 BMI 21.62 kg/m2 10/09/2025 Height-cm 180.34 cm 10/09/2025 Weight-kg 70.31 kg 10/09/2025 Encounters Encounter Location Date Provider Diagnosis [facility] [address] [place], [place] [id number] 10/09/2025 KERRI MCGUIRE Pain in left toe(s) M79.675 ; Onychomycosis B35.1 ; Pain in right toe(s) M79.674 ; Intermittent claudication of both lower extremities due to atherosclerosis I70.213 ; Ingrowing nail L60.0 ; 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 NAIL DEBRIDEMENT: [...] for protection, healing and overall foot health 10/09/2025 Pain in right toe(s) (ICD-10 - M79.674) 10/09/2025 Intermittent claudication of both lower extremities due to atherosclerosis (ICD-10 - I70.213) 10/09/2025 Ingrowing nail (ICD-10 - L60.0) 10/09/2025 Non-pressure chronic ulcer of right heel and midfoot limited to breakdown of skin (ICD-10 - L97.411) 10/09/2025 Difficulty in walking involving ankle and foot joint (ICD-10 - R26.2) 10/09/2025 Type 2 diabetes mellitus with other diabetic [...] sooner if patient notices any acute changes. 10/09/2025 Other Emollient: Recommend that the patient use an emollient such as zanu-prk-[id number] r Eucerin cream, Vanicream, or other lotion [...] the patient use an emollient such as [id number]-[id number] Eucerin cream, Vanicream, or other lotion to the affected area. Next Appt Details Follow Up: 9 weeks, Reason: at risk foot care Provider Name:KERRI MCGUIRE, 12/11/2025 03:00:00 PM, [address] [facility] [address], [place], [id number], History and Physical Notes * HPI (History of Present Illness) Category Sub-Category Detail Notes Category Not es HPI General care Patient presents to the office for at risk foot care. Patient states that their nails are thickened, elongated and painful. Patient states that it is aggravated by shoe gear. Onset is gradual. Patient denies being diabetic., Patient denies taking prescription blood thinners but does take a daily aspirin., Date last seen by Dr. Vasquez was March 2025. , Initials OM Examination Category Sub-Category Detail Notes Category Not [...] toenail Neurologic Tinel's sign: negative Vibratory: normal [place] 5.07 monofilament dimini shed protective sensation to [...] ROHIT VAZQUEZ TDOB:[birth year] (85 yo M)Acc No.[id number]:10/09/2025 Patient: ROHIT HINOJOSA T Provider: Julien Mcguire DPM :1940 A ge:85 Y S ex:Male Date:10/09/2025 Address: [id number] Pcp:Vipin Mcclure Subjective: * Chief Complaints: * * General carePatient presents for at risk diabetic foot care * HPI: H PI: General care P atient presents to the office for at risk foot care. Patient states that their nails are thickened, elongated and painful. Patient states that it is aggravated by shoe gear. Onset is gradual. Patient denies being diabetic., Patient denies taking prescription blood thinners but does take a daily aspirin., Date last seen by Dr. Vasquez was March 2025. , Initials OM. * ROS: G eneral / Constitutional: Patient [...] Diabetic Medical History Verified * Surgical History: No Surgical History documented. Surgical History verified. * Hospitalization/Major Diagno stic Procedure: No Hospitalization Documented. Hospitalization Verified. * Family History: F ather: [...] sign: n egative . Vibratory: n ormal. [place] 5.07 monofilament d iminished protective sensation to the level of the digits via 5.07 g swmf bilateral. C onstitutional: Constitutional T he patient is awake, alert, well developed, well groomed and well nourished. . Assessment: * Assessment: 1. O nychomycosis - B35.1 (Primary) 2 . P ain in left toe(s) - M79.675 3 . P ain in right toe(s) - M79.674 4 . I ntermittent claudication of both lower extremities due to atherosclerosis - I70.213 5 . I ngrowing nail - L60.0 6 . N on-pressure chronic ulcer of right heel and midfoot limited to breakdown of skin - L97.411 7 . D ifficulty in walking involving [...] the patient use an emollient such as xgzf-qgg-lmgysio Eucerin cream, Vanicream, or other lotion to the affected area. * Preventive Medicine: Screenings: F all risk screening F all Risk Assessment: O ne fall with injury in the past year, P palomo of Care: D ocumented, T ype of fall plan of care: B alance, strength and gait training or instruction provided, H ave you had two or more falls in the past year? N o, H ave you had any falls with injury in the past year? Y es. * Follow Up: 9 weeks (Reason: at risk foot care) Billing Information: * Visit Code: 34802 Office Visit, Est Pt., Level 3. * Procedure Codes: * Electronic signature of CASSY HUYNH DPM on 11/08/2025 at 03:21 PM CUSTOMER CONTACT SALES ASSOCIATE Sign off status: Pending * Provider: Julien Mcguire DPM Date: 12/09/2024 Generated for Emmy nova/Ti/eTransmitting on: 01/09/2025 03:21 PM CUSTOMER CONTACT SALES ASSOCIATE
--- NOTE | ~2025-11-08 | XR_ITS ---
EXAM/PROCEDURE: XR bone survey comp/metastic HISTORY: Hypercalcemia COMPARISON: None available. TECHNIQUE: Skeletal bone survey for metastatic disease FINDINGS: No discrete osteolytic or osteoblastic lesions seen. IMPRESSION: No evidence of skeletal metastatic disease. Reviewed, dictated and finalized at location A. OR [employer]CR[employer] MASTER
--- NOTE | ~2025-11-08 | US_ITS ---
EXAMINATION: US renal BI, 11/10/2025 10:30 AMBULANCE MECHANIC HISTORY: RACHELLE and hypercalcemia Comparison: None Technique: Cervantes-scale and color Doppler images were obtained. Findings: KIDNEYS: Right Kidney: Right kidney surgically absent. Left Kidney: Left kidney measures 11.4 x 5.6 x 6.2 cm, normal. Bladder: There is no gallbladder wall thickening, left bladder usual jet was observed, no gross filling defects within the bladder. . Impression: No acute process Reviewed, dictated and finalized at location P. BULANCE MECHANIC Impression: No acute process
[2025-11-08 12:36] VITALS: BP 166/68; PULSE 61; RESP 16; TEMP 36.2; O2SAT 99
--- NOTE | 2025-11-08 14:21 | ED.GENADULT ---
HPI - General Adult General Chief complaint: Recheck/Abnormal Lab/Rx Stated complaint: Nephro sent in calcium elevated, drawn 11/07 Time Seen by Provider: 11/08/25 14:21 History of Present Illness HPI narrative: 85-year-old male with history of chronic kidney disease and the single kidney presents from home after routine outpatient lab testing found to have a calcium of 13. Patient states he has felt intermittently confused, some body aches but otherwise states he feels in his usual state health. No recent changes in medications. Denies any history of active cancer renal failure, multiple myeloma or lymphoma. He states he feels otherwise in his usual state of health. Related Data Home Medications ?Medication ?Instructions ?Recorded ?Confirmed ?Last Taken ?Type acetaminophen 500 mg tablet 500 mg PO Q6H PRN 05/10/23 11/14/24 Unknown History (Tylenol Extra Strength) aspirin,buffered (calcium 1 tablet PO DAILY 05/10/23 11/14/24 Unknown History carbonate-magnesium) 81 mg tablet blood sugar diagnostic (OneTouch 05/10/23 05/17/24 Unknown History Ultra Test strips) fluocinonide 0.05 % topical cream 1 applic topical BID PRN 05/10/23 11/14/24 Unknown History glucosamine-chondroitin 500 mg-400 1 tablet PO BID 05/10/23 11/14/24 Unknown History mg tablet omega 2-bta-zve-fish oil 1,000 mg 1 cap PO DAILY 05/10/23 11/14/24 Unknown History (120 mg-180 mg) capsule (Fish Oil) polyethylene glycol 3350 17 17 g PO DAILY PRN 05/10/23 11/14/24 Unknown History gram/dose oral powder (Miralax) diclofenac sodium 1 % topical gel 2 g topical DAILY PRN 11/08/23 11/14/24 Unknown History fluticasone propionate 50 2 spray intranasal DAILY PRN 11/08/23 11/14/24 Unknown History mcg/actuation nasal spray,suspension B-complex with vitamin C 1 cap PO DAILY 05/15/24 11/14/24 Unknown History dapagliflozin propanediol 5 mg mg PO 05/15/24 11/14/24 Unknown History tablet (Farxiga) atorvastatin 10 mg tablet 10 mg PO .twice weekly 11/13/24 11/14/24 Unknown History clopidogrel 75 mg tablet 75 mg PO DAILY 11/13/24 11/14/24 Unknown History ezetimibe 10 mg tablet 10 mg PO DAILY 11/13/24 11/14/24 Unknown History isosorbide mononitrate 30 mg 30 mg PO DAILY 11/13/24 11/14/24 Unknown History tablet,extended release 24 hr metoprolol succinate 50 mg 50 mg PO DAILY 11/13/24 11/14/24 Unknown History tablet,extended release 24 hr levothyroxine 50 mcg capsule 50 mcg PO DAILY 05/14/25 Unknown History metformin 500 mg tablet 500 mg PO BIDWMEAL 05/14/25 Unknown History timolol 0.5 % eye drops 1 drp EACH EYE Q12H 05/14/25 Unknown History Allergies Allergy/AdvReac Type Severity Reaction Status Date / Time atorvastatin Allergy Muscle Pain Verified 11/08/25 12:31 lisinopril Allergy Muscle Pain Verified 11/08/25 12:31 niacin (From Niaspan Allergy Rash Verified 11/08/25 12:31 Extended-Release) losartan hydrochlorothiazide Allergy Muscle Pain Uncoded 05/14/25 09:28 penicllin Allergy Rash Uncoded 05/14/25 09:28 jardiance AdvReac Intermediate muscle pain Uncoded 05/14/25 09:28 Review of Systems Review of Systems: All systems reviewed & are unremarkable except as noted in HPI and below PMFSH Past Medical History Medical History (Updated 11/08/25 @ 16:26 by Sandrine Anthony APRN) History of myocardial infarction Type 2 diabetes mellitus with unspecified complications Essential (primary) hypertension Chronic kidney disease, stage 3b Surgical History Surgical History (Updated 11/08/25 @ 16:26 by Sandrine Anthony APRN) 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 H/O cataract removal with insertion of prosthetic lens left eye 04/04/24, right eye 03/19/24 Social History Social History Smoking status: Never smoker Alcohol intake: unknown Substance use: unknown Substance use type: unknown Lack of Transportation: No Lack of Food: Never True Current Housing: I Have Housing Concerned About Future Housing: No Difficulty Paying Gas/Electric Bills: No Difficulty Paying for Meds: No Education: Bachelor's Degree Difficulty w/ Childcare or Family Care: No Gender identity (if verbalized by the patient): Male Exam Narrative: EXAMINATION OF ORGAN SYSTEMS/BODY AREAS: Constitutional: Vital signs per nursing GENERAL:No acute distress, non-toxic appearing. HEAD: Normal with no signs of head trauma. EYES: EOMI, conjunctiva normal ENT: Hearing grossly intact LUNGS: Nonlabored breathing. HEART: Regular rate and rhythm ABD: Soft, nontender to palpation EXT: Normal range of motion SKIN: No rashes or lesions. NEURO: Alert. No gross focal sensory or strength deficits. PSYCH: Normal affect Course Vital Signs Vital signs: Vital Signs Temperature 36.2 C L 11/08/25 12:36 Pulse Rate 61 11/08/25 12:36 Respiratory Rate 16 11/08/25 12:36 Blood Pressure 166/68 H 11/08/25 12:36 Pulse Oximetry 99 11/08/25 12:36 Oxygen Delivery Room Air 11/08/25 12:36 Temperature 36.2 C L 11/08/25 12:36 Pulse Rate 58 L 11/08/25 14:22 Respiratory Rate 18 11/08/25 14:24 Blood Pressure 157/76 H 11/08/25 14:22 Pulse Oximetry 98 11/08/25 14:24 Oxygen Delivery Room Air 11/08/25 14:22 MDM Differential Diagnosis Differential Diagnosis: 85-year-old male presents with mild to moderately symptomatic hypercalcemia. I did repeat his labs, his calcium is 13. TSH and PTH are pending as are urinalysis. Given the significance of his hypercalcemia and is mild to moderately symptomatic of unclear etiology will require hospital admission. His EKG is without any evidence of long QT and start him on 2 L of IV fluids otherwise focal hospitalist and admitted to the hospital with a routine consultation nephrology. Medical Records I have reviewed the following patient records and this information was taken into consideration when formulating the assessment and plan.: previous labs and previous hospitalizations Lab Data MDM Lab Attestation statement: I personally reviewed the patient's lab results. 11/08/25 14:48 11/08/25 14:48 Labs: Lab Results 11/08/25 11/08/25 11/08/25 Range/Units 14:33 14:45 14:48 WBC 5.7 (4.5-10.0) K/mm3 RBC 5.20 (4.6-6.20) M/mm3 Hgb 16.3 (14.0-18.0) g/dL Hct 47.9 (42.0-52.0) % MCV 92.1 (80-100) fl MCH 31.3 (26-34) pg MCHC 34.0 (32-36) g/dl RDW 12.4 (11.5-14.5) % Plt Count 150 (150-375) k/mm3 MPV 10.2 (7.4-10.4) fl Immature Gran % (Auto) 0.4 (0-0.5) % Neut % (Auto) 64.2 (45.5-73.1) % Lymph % (Auto) 16.2 L (18.3-44.2) % Bond % (Auto) 15.1 H (2.6-8.5) % Eos % (Auto) 3.2 (0-4.4) % Baso % (Auto) 0.9 (0.2-1.2) % Lymph # (Auto) 0.92 (0.9-3.2) K/mm3 Bond # (Auto) 0.9 H (0.1-0.6) K/mm3 Eos # (Auto) 0.2 (0-0.3) K/mm3 Baso # (Auto) 0.1 (0.0-0.1) K/mm3 Abs Immat Gran (auto) 0.02 (0.00-0.031) K/mm3 Absolute Neuts (auto) 3.7 (1.3-6.7) K/mm3 Absolute Nucleated RBC 0.000 (0.0-0.012) K/mm3 Nucleated RBC % 0.0 (0.0-0.2) % Sodium 135 L (137-145) mmol/L Potassium 4.4 (3.4-5.0) mmol/L Chloride 103 (98-107) mmol/L Carbon Dioxide 25 (22-30) mmol/L Anion Gap 7 (4-12) mmol/L BUN 55 H (9-20) mg/dL Creatinine 2.12 H (0.7-1.3) mg/dL Estim Creat Clear Calc 24 ml/min Estimated GFR 30 L (59 - ) Glucose 165 H (65-110) mg/dL Calcium 13.3 H* (8.4-10.2) mg/dL Magnesium 2.4 H (1.6-2.3) mg/dL Total Bilirubin 0.8 (0.2-1.3) mg/dL AST 20 (17-59) U/L ALT 21 (6-50) U/L Alkaline Phosphatase 107 (38-126) U/L Total Protein 7.5 (6.3-8.2) g/dL Albumin 4.3 (3.5-5.1) g/dL Lipase 376 H (23-300) U/L PTH Related Peptide Pending Urine Color Yellow (Yellow) Urine Appearance Clear (Clear) Urine pH 5.5 (5.0-9.0) Ur Specific [place] 1.017 (1.001-1.035) Urine Protein Negative (Negative) mg/dL Urine Glucose (UA) 3+ H (Negative) mg/dL Urine Ketones Negative (Negative) mg/dL Ur Blood (Man) Negative (Negative) Urine Nitrate Negative (Negative) Urine Bilirubin Negative (Negative) Urine Urobilinogen 0.2 (<2.0) mg/dL Leukocyte Esterase Rfl Negative (Negative) JILL/UL ECG Data EKG #1: Attestation: I personally reviewed and interpreted this ECG as follows: Interpretation: Twelve lead EKG per my interpretation is a sinus bradycardia at 56 beats per minute. First-degree AV block. Normal QRS. QTC of 354 milliseconds. No evidence of ST segment elevation depression. Overall impression abnormal EKG per Discharge Plan Discharge Clinical Impression: Hypercalcemia Patient Disposition: Still a Patient Condition: Stable Patient Language: Belgian Prescriptions: No Action (DME) OneTouch Ultra Test Strip See Rx Instructions .Route Rx Instructions: As directed aspirin,buffd-calcium carb-mag 81 mg tablet 1 tablet PO DAILY omega 5-ivv-eew-fish oil [Fish Oil] 1,000 mg (120 mg-180 mg) capsule 1 cap PO DAILY polyethylene glycol 3350 [Miralax] 17 gram/dose powder 17 g PO DAILY PRN Rx Instructions: 1/2 dose per day if needed glucosamine-chondroitin 500-400 mg tablet 1 tablet PO BID fluocinonide 0.05 % cream 1 applic topical BID PRN acetaminophen [Tylenol Extra Strength] 500 mg tablet 500 mg PO Q6H PRN diclofenac sodium 1 % gel 2 g topical DAILY PRN Rx Instructions: apply to single elbow, wrist or hand; for hand includes palm/fingers/back of hand fluticasone propionate 50 mcg/actuation spray,suspension 2 spray intranasal DAILY PRN Rx Instructions: administer into each nostril dapagliflozin propanediol [Farxiga] 5 mg tablet PO B-complex with vitamin C Capsule 1 cap PO DAILY atorvastatin 10 mg tablet 10 mg PO .twice weekly Rx Instructions: take on Mon and Fri clopidogrel 75 mg tablet 75 mg PO DAILY ezetimibe 10 mg tablet 10 mg PO DAILY isosorbide mononitrate 30 mg tablet extended release 24 hr 30 mg PO DAILY metoprolol succinate 50 mg tablet extended release 24 hr 50 mg PO DAILY levothyroxine 50 mcg capsule 50 mcg PO DAILY Rx Instructions: take 1/2hr to and hr before breakfast on empty stomach timolol 0.5 % drops 1 drp EACH EYE Q12H metformin 500 mg tablet 500 mg PO BIDWMEAL Follow-up/Referrals: PHYSICIAN NOT ON STAFF,NONSTAFF [Primary Care Provider]
[2025-11-08 14:22] VITALS: BP 157/76; PULSE 58; RESP 18; O2SAT 100
[2025-11-08 14:24] VITALS: RESP 18; O2SAT 98
--- NOTE | 2025-11-08 14:27 | ECG_ITS ---
Test Date: 2025-11-08 14:59:27 Measurements Intervals [place] Rate: 56 P: 68 NC: 228 QRS: 19 QRSD: 92 T: 66 QT: 364 QTc: 354 Interpretive Statements SINUS BRADYCARDIA WITH FIRST DEGREE AV BLOCK ANTEROSEPTAL INFARCT, AGE INDETERMINATE BASELINE ARTIFACT- I, II, III, AVR, AVL, AVF, V1-V6 ABNORMAL ECG No previous ECG available for comparison Electronically Signed On 11-08-2025 15:05:08 DAM TENDER by Guillaume Pickard D.O.
[2025-11-08 14:40] LABS: Add Urine Microscopic? NO; Appearance Urine Clear (Clear); Glucose Urine UA 3+ mg/dL (Negative); Leukocyte Esterase Ur Negative LEU/UL (Negative); Nitrate Urine Negative (Negative); Specific Grav Ur 1.017 (1.001-1.035)
[2025-11-08] MEDS: SODIUM CHLORIDE 0.9% IV 1,000 ML 999 ML IV CONT (14:53)
[2025-11-08 15:10] LABS: Hematocrit 47.9 % (42.0-52.0); Hemoglobin 16.3 g/dL (14.0-18.0); Immature Granulocyte Percent A 0.4 % (0-0.5); Lymphocytes Absolute Auto 0.92 K/mm3 (0.9-3.2); Mean Corpuscular HGB Conc 34.0 g/dl (32-36); Mean Corpuscular Hemoglobin 31.3 pg (26-34); Mean Corpuscular Volume 92.1 fl (80-100); Nucleated Red Blood Cells Absolute Auto 0.000 K/mm3 (0.0-0.012); Nucleated Red Blood Cells Perc 0.0 % (0.0-0.2); Platelet Count Result 150 k/mm3 (150-375); Red Blood Count 5.20 M/mm3 (4.6-6.20); White Blood Count 5.7 K/mm3 (4.5-10.0)
--- OUTSIDE RECORDS SUMMARY | 2025-11-08 15:20 | XMS_ITS | Encounter Summary ---
Author Organization [facility] Address [address] [facility] [place] [address] Care Team Providers Care Archaeology Professor Name Role Phone Oleksandr Teixeira MD Primary Care Provider + Vipin Mcclure MD Primary Care Provider [phone] Encounter Details Date Type Department Care Team (Late st Contact Info) Description 09/22/2018 Lab Requisition [facility] Care [facility] [address] [facility] [place] [id number] Erika Ventura MD [address] [place] [address] Social History Tobacco Use Types Packs/Day Years Used Date Smoking Tobacco: Never Assessed Sex and Gender Information Value Date Recorded Sex Assigned at Male 02/25/2024 11:35 AM CDT Legal Sex Male 6:59 AM [employer] Gender Identity Male 02/25/2024 11:35 AM CDT Sexual Orientation Straight 02/25/2024 11 :36 AM CDT documented as of this encounter Plan of Treatment Upcoming Encounters Date Type Department Care Team (Late st Contact Info) Description 12/09/2025 12:45 PM [employer] Office Visit [facility] [address] [place] [address] [address] [place], [place] [id number] Shan Castillo MD [address] [place] [address] [address] [place] [address] 09/05/2026 11:15 AM CDT Office Visit [facility] [address] [place] [address] Joshua Medrano, [address] [facility] [id number] documented as of this encounter Procedures Procedure Name Priority Date/Time Associated Diagnosis Comments DERMATOPATH TECHNICAL REPORT Routine 09/20/2018 12:00 AM CDT documented in this encounter Results * DERMATOPATH TECHNICAL REPORT (09/20/2018 12:00 AM CDT) Case Report Dermatopathology Report Case: [id number] Authorizing Provider: Erika Ventura MD Collected: 09/20/2018 12:00 AM Pathologist: Carol Jeffries MD Received: 09/22/2018 07:55 AM Specimen: Skin, abdomen 12:52 PM CDT DERMATOPATHOLOGY LABORATORY Addendum 1 At the request of the diagnosing physician, the technical component for MART-1/Melan A was performed by [facility] Dermatopathology [facility]. 12:52 PM CDT DERMATOPATHOLOGY LABORATORY Addendum electronically signed by Carol Jeffries MD on 09/27/2018 at 1252 CDT Clinical History Nevus vs BCC. [place] papule. Check margins. 12:52 PM CDT DERMATOPATHOLOGY LABORATORY Gross Description Specimen A: Received is one formalin filled container labeled with the patient's name and designated abdomen. The specimen consists of a shave measuring [id number]. The margin is inked green. Jar 0. [facility] Dermat[facility] performed the technical component only. 12:52 PM CDT DERMATOPATHOLOGY LABORATORY Embedded Images 12:52 PM CDT DERMATOPATHOLOGY LABORATORY DISCLAIMER An external and internal positive and negative controls are appropriate for the histochemical, immunohistochemical and immunofluorescence stain(s) in this case (if any), except where stated explicitly. The performance characteristics of the stain(s) cited in this report were developed and its performance characteristic determined by the Dermatopathology Laboratory at [facility]. These tests need not be, and therefore are not, approved by the [place] Food and Drug Administration. The tests are used for clinical purposes. 8 12:52 PM CDT DERMATOPATHOLOGY LABORATORY at 1205 CDT Pathology/Cytolog y TISSUE SPECIMEN FROM SKIN / Unknown 09/20/2018 09/22/2018 7:55 AM CDT us Erika Ventura MD LAB - PATHOLOGY/CYTOLOGY ORD ERABLES Edited Result - Final DERMATOPATHOLOGY LABORATORY [facility] - Department of Dermatology [address] [facility] 5th Floor Lab [address] [phone] documented in this encounter Visit Diagnoses Not on filedocumented in this encounter Care Teams Archaeology Professor Relationship Specialty Start Date End Date Oleksandr Teixeira MD [address] [place] [phone] PCP - General 10/29/08 11/28/24 Vipin Mcclure MD [address] [phone] PCP - General Internal Medicine 11/29/24 documented as of this encounter
--- OUTSIDE RECORDS SUMMARY | 2025-11-08 15:20 | XMS_ITS | Clinical Summary ---
Author Organization [facility] Address [address] [place] [address] Care Team Providers Care Hat Presser Name Role Phone Vipin Mcclure MD Primary Care Provider [phone] Source Comments [facility],non-owned Affiliates and Associated Physician Practices is amultiple site organization consisting of ambulatory clinics and hospital sitesin [place], [place]. This disclosure is being madepursuant to the Care Everywhere program and may not contain all information available regarding this patient. Last updated 18.[facility] Allergies Active Allergy Reactions Criticality Noted Date Comments Niacin Rash,Other Medium 12/25/2010 Other: flush Penicillins Rash Medium 10/09/2004 Medications * Be aware that medications may not be up to date on this document. Alwaysverify current medications with the patient. BinaxNOW COVID-19 Ag Home Test KIT 09/01/20 22 Active Farxiga 5 MG tablet Take 1 (one) tablet by mouth every morning Active metFORMIN (Glucophage) 500 MG tablet Take 1 (one) tablet by mouth 2 times daily 05/09/20 23 Active OneTouch Ultra test strip USE TO TEST TWICE DAILY NEEDED DIRECTED Active fluticasone propionate (Flonase Allergy Relief) 50 MCG/ACT nasal spray [place] 2 (two) sprays into the nose every 24 hours 02/23/20 24 Active fluocinonide (Lidex) 0.05 % cream Apply to affected area as needed Active levothyroxine (Synthroid) 50 MCG tablet Take 1 (one) tablet by mouth daily before breakfast Active acetaminophen (Tylenol) 500 MG tabletIndicatio ns:Status post total left knee replacement Take 2 (two) tablets by mouth 3 times daily Maximum allowable Acetaminophen amount = 4 Grams (4000 mg) / 24 hours. 180 tablet 2 09/13/20 24 Active Ascorbic Acid 500 MG 08/30/20 24 Active [place]-3 Fatty Acids (fish oil) 1000 MG capsule 08/30/20 24 Active B Complex Vitamins (VITAMIN B COMPLEX PO) 08/30/20 24 Active polyethylene glycol 3350 (MiraLax) 17 g packet 08/30/20 24 Active Glucosamine-Cho ndroitin 500-400 MG 08/30/20 24 Active atorvastatin (Lipitor) 10 MG tablet Take 1 (one) tablet by mouth every Tuesday & Tuesday 36 tablet 1 02/09/20 25 Active clindamycin (Cleocin) 150 MG capsule TAKE 4 CAPSULES BY MOUTH 1 HOUR BEFORE DENTAL APPOINTMENT 02/27/20 25 Active ezetimibe (Zetia) 10 MG tablet Take 1 (one) tablet by mouth once daily 90 tablet 3 05/30/20 25 Active doxycycline hyclate (Vibramycin) 100 MG capsule Take 1 (one) capsule by mouth 2 times daily 06/10/20 25 Active timolol maleate (Timoptic) 0.5 % ophthalmic solution Instill 1 (one) drop into both eyes 2 times daily 05/15/20 25 Active aspirin (Aspirin) 81 MG chew tablet Take 1 (one) tablet by mouth once daily 90 tablet 3 06/13/20 25 Active clopidogrel (plaVIX) 75 MG tabletIndicatio ns:Acute Coronary Syndrome Take 1 (one) tablet by mouth once daily Reasons: Acute Coronary Syndrome 90 tablet 08/15/20 25 Active metoprolol succinate XL 24hr (Toprol XL) 50 MG tablet Take 1 (one) tablet by mouth at bedtime 90 tablet 08/21/20 25 Active isosorbide mononitrate CR 24hr (Imdur) 30 MG tablet Take 1 (one) tablet by mouth once daily 90 tablet 3 10/30/20 25 Active isosorbide mononitrate CR 24hr (Imdur) 30 MG tablet Take 1 (one) tablet by mouth once daily 90 tablet 4 11/12/20 24 025 Discontin ued(Reord er) Active Problems Problem Noted Date Diagnosed Date Coronary artery disease invo lving [place] coronary artery of [place] heart with unstable angina pectoris 10/30/2024 NSTEMI (non-ST elevated myocardial infarction) 1 12/31/2023 S/P drug eluting coronary stent placement 2023 Paroxysmal SVT (supraventricular tachycardia) Chronic kidney disease, unspecified CKD stage Elevated troponin 10/27/2024 Type 2 diabetes mellitus wit h other specified complication, with long-term current use of insulin 10/27/2024 Arthritis of left knee 08/28/2024 Gastro-esophageal reflux disease without esophag itis 04/06/2024 Malignant neoplasm of kidney excluding renal pel vis 04/06/2024 Hyperlipidemia 12/11/2018 Chronic kidney disease, stage III (moderate) Displacement of lumbar inter vertebral disc without myelopathy 08/06/2008 Benign essential hypertension 10/05/2007 Type 2 diabetes mellitus without complications 1 11/30/1998 Overview (08/28/2025): IMO 02/27/2025 IMO 08/28/2025 DM2 (diabetes mellitus, type 2) 09/30/1999 Resolved Problems Problem Noted Date Diagnosed Date Resolved Date Chest pressure 10/27/2024 10/30/2024 Encounters Date Type Department Care Team Description 10/30/2025 Refill [facility] Care [address] [place] [address] Toni Perlata APRN-CNP MEDICATION REFILL 09/06/2025 11:15 AM CDT Office Visit [facility] - Orthopedic Surgery [address] [place] [phone] Joshua Medrano, DO Status post total left knee replacement (Primary Dx) 09/06/2025 10:50 AM CDT - 09/06/2025 11:59 PM CDT Hospital Encounter [facility] - Orthopedics [address] [place] [address], [address] [place] [phone] Joshua Medrano, DO Discharge Disposition: Home or Self Care 09/06/2025 Travel 08/28/2025 Orders Only [facility] - Orthopedic Surgery [address] [place] [phone] Joshua Medrano, DO Status post total left knee replacement 08/21/2025 Refill [facility] [address] [place] [address] Toni Peralta WILTON WEAVER-PERIOPERATIVE EDUCATOR MEDICATION REFILL 08/15/2025 Refill [facility] [address] [place] [address] Toni Peralta, WILTON WEAVER-PERIOPERATIVE EDUCATOR MEDICATION REFILL from Last 3 Months Social History Tobacco Use Types Packs/Day Years Used Date Smoking Tobacco: Former Cigarettes Passive Smoke Exposure: Never Smokeless Tobacco: Never Tobacco Cessation:Counseling Given: Not Answered Alcohol Use Standard Drinks/Week Comments Not Currently 1 (1 standard drink = 0.6 oz pur e alcohol) Tuesday AUDIT-C Answer Date Recorded Q1: How often do you have a drink containing alcohol? Never 10/30/2024 Q2: How many drinks containi ng alcohol do you have on a typical day when you are drinking? Patient does not drink Q3: How often do you have si x or more drinks on one occasion? Never 10/30/2024 Overall Financial Resource Strain (CARDIA) Answe r Date Recorded How hard is it for you to pa y for the very basics like food, housing, medical care, and heating? Not hard at all 10/30/2024 PHQ-2 Answer Date Recorded Patient Health Questionnaire-2 Score 0 09/05/2025 [facility] [place] [facility] - Occupational Stress Questionnaire Answer Date Recorded Do you feel stress - tense, restless, nervous, or anxious, or unable to sleep at night because your mind is troubled all the time - these days? Not at all 10/30/2024 Hunger Vital Sign Answer Date Recorded Within the past 12 months, y ou worried that your food would run out before you got the money to buy more. Never true 10/30/20 24 Within the past 12 months, t he food you bought just didn't last and you didn't have money to get more. Never true 10/30/2024 PRAPARE - Transportation Answer Date Re corded In the past 12 months, has l ack of transportation kept you from medical appointments or from getting medications? No 01/2024 In the past 12 months, has l ack of transportation kept you from meetings, work, or from getting things needed for daily living? No 10/30/2024 Housing Stability Vital Sign Answer Nico e Recorded In the last 12 months, was t here a time when you were not able to pay the mortgage or rent on time? No 10/30/2024 In the past 12 months, how m any times have you moved where you were living? 1 10/30/2024 At any time in the past 12 m [facility], were you homeless or living in a alf (including now)? No 10/30/2024 Sex and Gender Information Value Date Recorded Sex Assigned at Male 02/25/2024 11:35 AM CDT Legal Sex Male 6:59 AM BACK END ENGINEER Gender Identity Male 02/25/2024 11:35 AM CDT Sexual Orientation Straight 02/25/2024 11 :36 AM CDT Last Filed Vital Signs Vital Sign Reading Time Taken Comments Blood Pressure 130/74 06/13/2025 11:04 AM CDT Pulse 55 06/13/2025 11:04 AM CDT Temperature 36.3 C (97.3 F) 12/13/2024 10:25 AM BACK END ENGINEER Respiratory Rate 17 10/31/2024 8:12 AM BACK END ENGINEER Oxygen Saturation 98% 06/13/2025 11: 04 AM CDT Inhaled Oxygen Concentration - - Weight 71.6 kg (157 lb 12.8 oz) 025 11:04 AM CDT Height 175.3 cm (5' 9) 03/20/2025 12:5 0 PM CDT Body Mass Index 23.3 03/20/2025 12:50 PM CDT Plan of Treatment Upcoming Encounters Date Type Department Care Team (Late st Contact Info) Description 12/09/2025 12:45 PM BACK END ENGINEER Office Visit [facility] [address] [place] [address] [address] [place] [address] Shan Castillo MD [address] [place] [address] [address] [place] [address] 09/05/2026 11:15 AM CDT Office Visit [facility] - Orthopedic Surgery [address] [place] [place] [phone] Joshua Medrano DO [address] [place] [address] Health Maintenance Due Date Last Done Comments DTAP/TDAP/TD VACCINES (1 - Tdap) 1961 PNEUMOCOCCAL VACCINE 50+ (1 of 2 - PCV) 1961 ZOSTER VACCINE (1 of 2) 02/11/1992 Respiratory Syncytial Virus (RSV) Vaccine Pt: or over 60 yrs (1 - 1-dose 75+ series) 2017 DIABETES RETINOPATHY SCREENING 04/06/2024 DIABETES-FOOT EXAM WITH MONOFILAMENT 04/06/2024 DIABETES - URINE PROTEIN SCREENING 11/28/2024 DIABETES-HGB A1C 04/26/2025 10/27/2024, 08/09/2024 COVID-19 VACCINE (2024- season) 2025 08/20/2024, 10/31/2023, 09/19/2023, Additional history exists INFLUENZA VACCINE (#1) 2025 , 08/25/2023, 08/24/2022, Additional history exists DIABETES-SERUM CREATININE 01/03/20262024, 10/31/2024, 10/30/2024, Additional history exists DEPRESSION SCREENING Completed 11/30/2024, 09/12/20 24 HEPATITIS B VACCINE Aged Out No longe r eligible based on patient's age to complete this topic HIB VACCINE Aged Out No longer eligi ble based on patient's age to complete this topic HPV VACCINE Aged Out No longer eligi ble based on patient's age to complete this topic MENINGOCOCCAL (Group B) VACCINE SHARED DECISION-MAKING Aged Out No longer eligible based on patient's age to complete this topic MENINGOCOCCAL GROUPS A/C/Y/W VACCINE Aged Out No longer eligible based on patient's age to complete this topic Medical Devices Implanted Type Area Surface Plate Inspector Device Identifier Shelf Expiration Date Model / Serial / Lot Cmpnt Tib Persona 0d F Kn Lt Osseoti Implanted:Qty : 1 on 08/28/2024 by Joshua Medrano, DO at [facility] Left: Knee [employer] [id number] 06/17/2034 [id number] / / [id number] Femur 11 Implanted:Qty : 1 on 08/28/2024 by Joshua Medrano, DO at [facility] Left: Knee 03/24/2034 [id number] / / [id number] Cmnt [employer] R 40gm Grn Implanted:Qty : 1 on 08/28/2024 by Joshua Medrano, DO at [facility] Left: Knee [employer] 11/27/2026 [id number] / / [id number] Cmnt [employer] R 40gm Grn Implanted:Qty : 1 on 08/28/2024 by Joshua Medrano, DO at [facility] Left: Knee [employer] 11/27/2026 [id number] / / [id number] 13 Implanted:Qty : 1 on 08/28/2024 by Joshua Medrano, DO at [facility] Left: Knee [id number] 07/18/2028 [id number] / / [id number] Sys Cor Stent Sng Xd Mr 2.5mm 16mm Dlv Implanted:Qty : 1 on 10/30/2024 by Kaiden Brower MD at [facility] [employer] [id number] 04/10/2026 [id number] / N/A / [id number] Explanted Type Area Surface Plate Inspector Device Identifier Shelf Expiration Date Model / Serial / Lot Poly 11 Explanted:Qty : 1 on 08/28/2024 at [facility] Left: Knee [id number] 01/26/2028 [id number] / / [id number] Procedures Procedure Name Priority Date/Time Associated Diagnosis Comments XR KNEE LEFT 3VW Routine 09/06/2025 10:5 5 AM CDT Status post total left knee replacement BASIC METABOLIC PANEL (CALCIUM TOTAL) Routine 01/03/2025 10:09 AM BACK END ENGINEER HTN (hypertension), benign HEMOGLOBIN A1C Add on 10/27/2024 8:47 PM BACK END ENGINEER Chest pressure from Last 3 Months or Most Recently Relevant to Health Maintenance Results * XR Knee Left 3Vw (09/06/2025 10:55 AM CDT) Anatomical Region Laterality Modality Lower Extremity Radiographic Gaby ging 09/06/2025 10:5 9 AM CDT Narrative 09/06/2025 1:28 PM CDT PROCEDURE: XR KNEE LEFT 3VW, DATE/TIME OF EXAM: 09/06/2025 10:55 AM, LOCATION [facility] INDICATION: Z96.652: Status post total left knee replacement COMPARISON: X-ray left knee from 03/01/2025. Findings/impression: Left knee total arthroplasty is unchanged. No evidence of hardware failure or loosening. No joint effusion. No acute fracture. Report dictated by Lito Cintron MD, MD (radiology ct technologist). > Dictated by Service Person I, Franc Stiles MD have personally reviewed and interpreted this examination/study. > Interpreting Provider: Franc Stiles MD on 09/06/2025 1:28 PM Procedure Note Franc Stiles MD - 09/06/2025 PROCEDURE: XR KNEE LEFT 3VW, DATE/TIME OF EXAM: 09/06/2025 10:55 AM, LOCATION [facility] INDICATION: Z96.652: Status post total left knee replacement COMPARISON: X-ray left knee from 03/01/2025. Findings/impression: Left knee total arthroplasty is unchanged. No evidence of hardwarefailure or loosening. No joint effusion. No acute fracture. Report dictated by Lito Cintron MD, MD (radiology ct technologist). > Dictated by Service Person I, Franc Stiles MD have personally reviewed and interpreted this examination/study. > Interpreting Provider: Franc Stiles MD on 09/06/2025 1:28 PM Joshua Medrano DO DIAGNOSTIC IMAGING ORDER MAEGAN Final Result * (ABNORMAL) BASIC METABOLIC PANEL (BMP) (01/03/2025 10:09 AM BACK END ENGINEER) Glucose 147(H) 65 - 99 mg/dL [facility] Comment: Fasting reference interval For someone without known diabetes, a glucose value >125 mg/dL indicates that they may have diabetes and this should be confirmed with a follow-up test. BUN 37(H) 7 - 25 mg/dL [facility] Creatinine 1.64(H) 0.70 - 1.22 mg/dL [facility] eGFR by Cystatin C 42(L) > OR = 60 mL/min/1.7 3m2 [facility] BUN/Creatinine Ratio 23(H) 6 - 22 (calc) [facility] Sodium 136 135 - 146 mmol/L [facility] Potassium 4.7 3.5 - 5.3 mmol/L [facility] Chloride 103 98 - 110 mmol/L [facility] CO2 25 20 - 32 mmol/L [facility] Calcium 9.7 8.6 - 10.3 mg/dL [facility] Comment: REPORT COMMENT: FASTING:YES Test Performed at: [facility] [id number] [place] [address] TEDDY WICK MD Blood BLOOD SPECIMEN / Unknown 01/03/2025 10:09 AM BACK END ENGINEER 01/03/2025 10:10 AM BACK END ENGINEER Toni Peralta WILTON WEAVER-PERIOPERATIVE EDUCATOR LAB - CHEMISTRY ORDERABL ES Final Result [facility] [id number] [place] [address] * (ABNORMAL) HEMOGLOBIN A1C (10/27/2024 8:47 PM BACK END ENGINEER) Hemoglobin A1c 6.8(H) <5.7 % 10/27/2024 10:48 PM BACK END ENGINEER [facility] Estimated Average Glucose 148 mg/dL 10/27/2024 10:48 PM BACK END ENGINEER [facility] Blood BLOOD SPECIMEN / Unknown Venipuncture / Unknown 10/27/2024 8:47 PM BACK END ENGINEER 10/27/2024 8:51 PM BACK END ENGINEER Narrative [facility] - 10/27/2024 10:48 PM BACK END ENGINEER HbA1c Interpretation: Normal: < 5.7% Pre-diabetes: 5.7-6.4% Diabetes: Equal to or greater than 6.5% Test results diagnostic of diabetes should be repeated for confirmation. Treatment target values recommended by ADA and other clinical organizations should be used to evaluate metabolic control in patients. This test should not replace glucose testing for patients with Type 1 diabetes, pediatric patients, or women. Falsely low HbA1c results may be observed in patients with clinical conditions that shorten erythrocyte life span or decrease mean erythrocyte age such as the presence of unstable hemoglobin variants, elevated hemoglobin F level or other causes of hemolytic anemia. HbA1c may not accurately reflect glycemic control when clinical conditions that affect erythrocyte survival are present. Severe Iron deficiency anemia may yield falsely high results. Hemoglobin A1c assay should not be used to diagnose or monitor diabetes in patients with malignancy, recent blood transfusion, chronic kidney or liver disease. This method may yield falsely low results when hemoglobin (HbF) exceeds 5% in the specimen. The [employer]paricio Alinity assay for the measurement of HbA1c is a National Glycohemoglobin Standardization Program (NGSP) certified method. Maren Monae MD LAB - CHEMISTRY ORDERABLES [facility] al Result Performing Organization Address City/State/[facility] Co de Phone Number [facility] [address] [place] [address] from Last 3 Months or Most Recently Relevant to Health Maintenance Insurance [employer] * Guarantor: ROHIT SANDERS Account Type Relation to Patient Date of Phone Billing Address Personal/Family 1940 [address] [place] [address] Advance Directives * Full Code (Latest Code Status on File) Date Activated Date Inactivated Comments 10/30/2024 4:04 PM 10/31/2024 12:07 PM * Full Code Date Activated Date Inactivated Comments 10/27/2024 10:17 PM 10/30/2024 4:04 PM * Full Code Date Activated Date Inactivated Comments 08/28/2024 2:27 PM 08/29/2024 4:54 PM Care Teams Hat Presser Relationship Specialty Start Date End Date Vipin Mcclure MD [employer] [address] [place] [id number] PCP - General Internal Medicine 11/29/24
--- OUTSIDE RECORDS SUMMARY | 2025-11-08 15:21 | XMS_ITS ---
Author Organization [facility] Address [address] [place] [address] Care Team Providers Care Logistics Vice President Name Role Phone Vipin Mcclure MD Primary Care Provider [phone] Active Problems Problem Noted Date Diagnosed Date Coronary artery disease invo lving nondalton coronary artery of [place]alton heart with unstable angina pectoris 10/30/2024 NSTEMI [...] 08/28/2025 DM2 (diabetes mellitus, type 2) 09/30/1999 Current Treatment and Therapy Plans No current plan information found. Past Treatment and Therapy Plans No past plan information found. Lifetime Dose Tracking * Chemical Lifetime Dose Automatic Entry Manual Entr y Fluoro Time 10.3 minutes 0 minutes 10.3 minutes Air Kerma 209 mGy 0 mGy 209 mGy Dose Area Product 15.2 Gy-cm2 0 Gy-cm2 15.2 Gy-cm 2 Resolved Problems Problem Noted Date Diagnosed Date Resolved Date Chest pressure 10/27/2024 10/30/2024
--- OUTSIDE RECORDS SUMMARY | 2025-11-08 15:21 | XMS_ITS | Clinical Summary ---
Author Organization [facility] Address [address] [place] [address] Care Team Providers Care Library Historian Name Role Phone Unavailable Primary Care Provider Unavailabl e Social History Tobacco Use Types Packs/Day Years Used Date Smoking Tobacco: Never Assessed Sex and Gender Information Value Date Recorded Sex Assigned at Not on file Legal Sex Male 8:03 PM AIR CONDITIONING MANAGER Gender Identity Not on file Sexual Orientation Not on file Plan of Treatment Health Maintenance Due Date Last Done Comments DIABETES ANNUAL FOOT EXAM 02/11/1960 DIABETES ANNUAL RETINAL EXAM 02/11/1960 DIABETES MICROALBUMIN ANNUAL SCREEN 02/11/1960 LDL CHOLESTEROL ANNUAL 02/11/1960 DTAP/TDAP/TD VACCINES (1 - Tdap) 1961 PNEUMOCOCCAL VACCINE 50+ YEA RS (1 of 2 - PCV) 1961 08/20/2009 RSV VACCINE (60+ or ) (1 - 1-dose 75+ series) 2017 DIABETES HBA1C Q 6 MONTHS 04/28/20252023, 10/27/2024, 08/09/2024 INFLUENZA VACCINE (#1) 2025 3, 08/24/2022, 08/14/2021, Additional history exists ZOSTER VACCINE Completed 10/28/2020, 05/25/2020 Insurance [facility]
--- OUTSIDE RECORDS SUMMARY | 2025-11-08 15:25 | XMS_ITS | Clinical Summary ---
Author Organization [facility] Address [address] [place] [address] Care Team Providers Care Lsat Instructor Name Role Phone Vipin Mcclure MD Primary Car e Provider Allergies Active Allergy Reactions Criticality Noted Date Comments Atorvastatin Muscle pain Medium 08/14/2015 Losartan Muscle pain Medium 03/23/2024 Niacin Rash Medium 08/14/2015 Penicillin V Rash Medium 08/14/2015 Lifitegrast Rash,Other (See comments) Medium Rash on hands/feet Medications gemfibroziL (LOPID) 600 mg tabletIndication s:hypertriglycer idemia Take 1 tablet (600 mg total) by mouth 2 (two) times a day before breakfast and lunch Active metFORMIN (GLUCOPHAGE) 500 mg tabletIndication s:type 2 diabetes mellitus Take 1 tablet (500 mg total) by mouth 2 (two) times a day with meals Active timolol (TIMOPTIC OCUDOSE) 0.5 % dropperetteIndic ations:open angle glaucoma Administer 1 drop into both eyes 2 (two) times a day Active bromfenac 0.07 % dropsIndications :Post-Op Ocular Inflammation Administer 1 drop into the right eye every morning Active moxifloxacin 0.5 % drops, viscousIndicatio ns:post-op Administer 1 drop into the right eye 4 (four) times a day Active prednisoLONE acetate (PRED FORTE) 1 % ophthalmic suspensionIndica tions:Severe Ocular Inflammation Administer 1 drop into the right eye 4 (four) times a day Active artificial tears (SYSTANE) 0.3 % gelIndications:D ry Eye Apply 1 drop to both eyes 3 (three) times a day as needed Active diclofenac sodium (VOLTAREN) 1 % gelIndications:O steoarthritis Apply 2 g topically as needed Active aspirin 81 mg enteric coated tabletIndication s:Myocardial Reinfarction Prevention Take 1 tablet (81 mg total) by mouth nightly Active docosahexaenoic acid/epa (FISH OIL ORAL)Indications :supplement Take 1,000 mg by mouth every morning Active polyethylene glycol (MIRALAX) 17 gram packetIndication s:constipation Take 0.5 packets (8.5 g total) by mouth every morning Active biotin-keratin 10,000-100 mcg-mg tabletIndication s:supplement Take 1 tablet by mouth nightly With lutien Active BIOFLAVONOIDS, CITR[place] ORALIndications: supplement Take 1 tablet by mouth nightly Active mometasone (ELOCON) 0.1 % creamIndications :Skin Inflammation Apply 1 Application topically as needed Active fluocinonide (LIDEX) 0.05 % creamIndications :skin rash Apply 1 Application topically as needed Active acetaminophen (TYLENOL) 500 mg tablet Take 1 tablet (500 mg total) by mouth every 6 (six) hours as needed for pain or headaches Active moxifloxacin (VIGAMOX) 0.5 % ophthalmic solution Administer 1 drop into the left eye 4 (four) times a day 4 Active prednisoLONE acetate (PRED FORTE) 1 % ophthalmic suspension Administer 1 drop into the left eye 4 (four) times a day 4 Active Active Problems Problem Noted Date Diagnosed Date Nuclear sclerotic cataract of left eye 4 Surgical History Surgery Date Site/Laterality Comments CATARACT EXTRACTION W/ INTRAOCULAR LENS IMPLANT 03/19/2024 Right VASECTOMY 11/28/1973 - 11/27/1974 BACK SURGERY 11/28/1981 - 11/27/1982 L5-S1 CYSTECTOMY 11/28/1984 - 11/27/1985 bladder cyst THYROID CYST EXCISION 11/28/1989 - 11/27/1990 BACK SURGERY 11/28/2007 - 11/27/2008 L3-L4, L5-S1 NEPHRECTOMY 11/28/2011 - 11/27/2012 Right and partial adrenelectomy Family History Medical History Relation Name Comments Anesthesia problems Neg Hx Social History Tobacco Use Types Packs/Day Years Used Date Smoking Tobacco: Former Cigarettes Q uit: 1976 Smokeless Tobacco: Never Tobacco Cessation:Counseling Given: Not Answered AUDIT-C Answer Date Recorded Q1: How often do you have a drink containing alc ohol? 2-4 times a month 04/04/2024 Q2: How many drinks containi ng alcohol do you have on a typical day when you are drinking? 1 or 2 04/04/2024 Q3: How often do you have si x or more drinks on one occasion? Never 04/04/2024 Personal Safety Answer Date Recorded Have you ever been in or are you currently in a harmful physical or emotional relationship or is someone making you feel afraid or unsafe? 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 Gender Identity Male 04/03/2024 3:57 PM CDT Sexual Orientation Straight 04/03/2024 3: 57 PM CDT Last Filed Vital Signs Vital Sign Reading Time Taken Comments Blood Pressure 121/59 04/04/2024 2:50 PM CDT Pulse 53 04/04/2024 2:50 PM CDT Temperature 36.2 C (97.2 F) 04/04/2024 3:00 PM CDT Respiratory Rate 12 04/04/2024 2:50 PM CDT Oxygen Saturation 96% 04/04/2024 2:50 PM CDT Inhaled Oxygen Concentration - - Weight 68.9 kg (152 lb) 04/04/2024 12:10 PM CDT Height 180.3 cm (5' 11) 04/04/2024 12:10 PM CDT Body Mass Index 21.2 04/04/2024 12:10 PM CDT Plan of Treatment Health Maintenance Due Date Last Done Comments Depression Screening 1942 DTaP/Tdap/Td Vaccine (1 - Tdap) 1953 Hepatitis B Screening 02/11/1960 Well Visit 65+ 2007 Pneumococcal vaccine 65+ (2 of 2 - PCV20 or PCV21) 08/20/2010 08/20/2009 Fall Risk Assessment 04/04/2025 04/04/2024 Covid-19 Vaccine (6 - 2024-2 6 season) 2025 09/05/2023, 10/11/2022, 09/08/2021, Additional history exists Influenza Vaccine (#1) 2025 , 08/25/2023, 08/24/2022, Additional history exists Zoster Vaccine Completed 10/28/2020, 11/2019, 06/24/2020, Additional history exists Medical Devices Implanted Type Area Carpet Installer Device Identifier Shelf Expiration Date Model / Serial / Lot [employer] [id number] 18.5d Tecnis Protec 6mm 13mm 1 Piece Anterior Aspheric Square Edge - [id number] - [id number] Implanted:Qty: 1 on 04/04/2024 by Krystyna Case MD at [facility] Lens Left: Eye [place] [employer] [id number] 06/13/2026 [id number] / [id number] / Insurance [facility]IC[facility] Advance Directives For more information, please contact: [phone] * Full Code (Latest Code Status on File) Date Activated Date Inactivated Comments 04/04/2024 11:50 AM 04/04/2024 7:17 PM Care Teams Lsat Instructor Relationship Specialty Start Date End Date Vipin Mcclure MD [address] [address] PCP - General Internal Medicine 06/21/25
--- OUTSIDE RECORDS SUMMARY | 2025-11-08 15:25 | XMS_ITS | Clinical Summary ---
Author Organization [facility] Address [address] [place] [address] Phone Care Team Providers Care Vp Account Director Name Role Phone Oleksandr Teixeira MD Primary Care Provider [phone] Allergies Active Allergy Reactions Criticality Noted Date Comments Atorvastatin Other (see comments) Medium 06/03/2019 Other: aches Lisinopril 06/08/2021 Niacin Other (see comments) 06/03/2019 Other: flush Penicillins Rash Low 06/03/2019 Medications Multiple Vitamin (MULTIVITAMIN) capsule 2 Active hydrOXYzine (ATARAX) 10 MG tablet as needed 0 6 Active polyethylene glycol (MIRALAX) powder half dose as needed 0 6 Active Aspirin Buf,CaCarb-MgCa rb-MgO, (BUFFERIN LOW DOSE) 81 MG tablet daily 2 Active senna-docusate (SENNA S) 8.6-50 MG per tablet prn 0 6 Active omega-3 (FISH OIL) 1200 MG capsule bid 2 Active mometasone (ELOCON) 0.1 % cream as needed 0 6 Active biotin (BIOTIN 5000) 5 MG capsule capsule 1 capsule (5 mg) orally daily 0 7 Active gemfibrozil (LOPID) 600 MG tablet bid 5 2 Active fluticasone (FLONASE) 50 MCG/ACT nasal spray 2 Active ascorbic acid (C-500 SR) 500 MG CR capsule 1 dialy 0 9 Active metFORMIN (GLUCOPHAGE) 500 MG tablet bid 5 2 Active Misc Natural Products (GLUCOSAMINE CHOND DOUBLE STR) tablet 1 daily 0 7 Active ONE TOUCH ULTRA TEST test strip TEST DIRECTED BID PRN 2 9 Active sildenafil (VIAGRA) 100 MG tablet TK 1 T PO QD 1 HOUR B SEXUAL ACTIVITY PRN 9 Active Diclofenac Sodium 1 % gel Apply topically every 6 hours 1 Active Wound Dressings (honey) gel topical gel Apply 1 application topically Active Active Problems Problem Noted Date Diagnosed Date Body mass index (BMI) 25.0-25.9, adult 1 Hyperlipidemia 12/11/2018 Persistent proteinuria 10/17/2017 Type 2 diabetes mellitus wit h diabetic chronic kidney disease 05/18/2012 Stage 3b chronic kidney disease 05/18/2012 Immunizations Immunization Administration Dates Next Due Influenza Recombinant Rema valent Injectable Preservative Free 08/14/2021,08/07/2020 Influenza TIV (IM) 08/24/2022,08/07/2020, 019 Pfizer Sars-cov-2 Vaccination 01/22/2021, 021 Pneumococcal Conjugate 08/20/2009 Zoster Recombinant 10/28/2020,05/25/2020 Family History Medical History Relation Comments Kidney disease Neg Hx Social History Tobacco Use Types Packs/Day Years Used Date Smoking Tobacco: Former Smokeless Tobacco: Never Alcohol Use Standard Drinks/Week Comments Not Currently 0 (1 standard drink = 0.6 oz pur e alcohol) Sex and Gender Information Value Date Recorded Sex Assigned at Not on file Legal Sex Male 9:56 AM MST Gender Identity Not on file Sexual Orientation Not on file Last Filed Vital Signs Vital Sign Reading Time Taken Comments Blood Pressure 132/70 11/08/2022 10:27 AM [employer] Pulse 72 11/08/2022 10:27 AM [employer] Temperature 36.1 C (96.9 F) 11/08/2022 10:27 AM [employer] Respiratory Rate - - Oxygen Saturation - - Inhaled Oxygen Concentration - - Weight 73.5 kg (162 lb) 11/08/2022 10:27 AM [employer] Height 177.8 cm (5' 10) 11/08/2022 10:27 AM [employer] Body Mass Index 23.24 11/08/2022 10:27 AM [employer] Plan of Treatment Health Maintenance Due Date Last Done Comments Pneumococcal PPSV23/PCV13 65 + Years / Low and Medium Risk (1 of 2 - PCV) 02/11/1992 COVID-19 Vaccine (3 - 2024-2 6 season) 2025 01/22/2021, 12/31/2020 Influenza Vaccine (#1) 2025 2, 08/14/2021, 08/07/2020, Additional history exists Insurance [facility] Care Teams Vp Account Director Relationship Specialty Start Date End Date Oleksandr Teixeira MD [address] [phone] PCP - General Internal Medicine 06/07/19
--- OUTSIDE RECORDS SUMMARY | 2025-11-08 15:25 | XMS_ITS | Patient Health Record ---
Author Organization [facility] Address [address] [place], [place] [id number] Care Team Providers Care Sonar Watchstander Name Role Phone Vipin Mcclure Primary Care Provider KERRI Villalpando Unavailable [phone] Allergies Allergen (clinical drug ingredient) Drug/Non Drug [...] Reaction:Reacti on 1:Rash Drug Allergy 05/18/2021 active Reason For Referral No Information Medications Medication SIG (Take, Route, Frequency, Duration) [...] TWICE DAILY Oral; Duration: 90 Days Active Immunizations Vaccine Route Administration Date Status Comme nts Pneumococcal conjugate PCV 13 Unknown 2024 Admini stered Social History Social History Additional Details Category Social Info Options Details Migrated Social History Migrated Social History History of tobacco use : , Smoking Status : Never used tobacco , Alcohol intake : Vital Signs Height-cm 180.34 cm 10/09/2025 Weight-kg 70.31 kg 10/09/2025 Height 71.00 in 10/09/2025 Weight 155 lbs 10/09/2025 BMI 21.62 kg/m2 10/09/2025 Encounters Encounter Location Date Provider Diagnosis [facility] [address] [place], [place] [id number] 01/17/2025 KERRISOCO RAMIREZ Onychomycosis B35.1 ; Ingrowing nail L60.0 ; Pain in right toe(s) M79.674 ; Pain in left toe(s) M79.675 ; Intermittent claudication of both lower extremities due to atherosclerosis I70.213 ; Difficulty in walking involving ankle and foot joint R26.2 and Type 2 diabetes mellitus with other diabetic neurological complication E11.49 [facility] [address] [id number] 03/21/2025 KERRISOCO RAMIREZ Onychomycosis B35.1 ; Ingrowing nail L60.0 ; Pain in right toe(s) M79.674 ; Pain in left toe(s) M79.675 ; Intermittent claudication of both lower extremities due to atherosclerosis I70.213 ; Difficulty in walking involving ankle and foot joint R26.2 and Type 2 diabetes mellitus with other diabetic neurological complication E11.49 [facility] [address] [id number] 04/11/2025 KERRI RAMIREZ Ingrowing nail L60.0 ; Non-pressure chronic ulcer [...] mellitus with other diabetic neurological complication E11.49 [facility] [address] [id number] 05/01/2025 KERRI RAMIREZ Ingrowing nail L60.0 ; Non-pressure chronic ulcer [...] mellitus with other diabetic neurological complication E11.49 [facility] [address] [id number] 05/30/2025 KERRI RAMIREZ Non-pressure chronic ulcer of right heel and [...] mellitus with other diabetic neurological complication E11.49 [facility] [address] [id number] 08/01/2025 KERRISOCO RAMIREZ Non-pressure chronic ulcer of right heel and [...] mellitus with other diabetic neurological complication E11.49 [facility] [address] [id number] 10/09/2025 KERRISOCO RAMIREZ Pain in left toe(s) M79.675 ; Onychomycosis [...] protection, healing and overall foot health 03/21/2025 Onychomycosis (ICD-10 - B35.1) 1. Nails [...] protection, healing and overall foot health 04/11/2025 Ingrowing nail (ICD-10 - L60.0) 04/11/2025 Non-pressure chronic ulcer of right heel and midfoot limited to breakdown of skin (ICD-10 - L97.411) 05/01/2025 Ingrowing nail (ICD-10 - L60.0) 05/30/2025 Non-pressure chronic ulcer of right heel [...] protection, healing and overall foot health 08/01/2025 Non-pressure chronic ulcer of right heel and midfoot limited to breakdown of skin (ICD-10 - L97.411) 10/09/2025 Pain in left toe(s) (ICD-10 - [...] protection, healing and overall foot health 08/01/2025 Onychomycosis (ICD-10 - B35.1) 1. NAIL [...] health 05/30/2025 Ingrowing nail (ICD-10 - L60.0) 05/01/2025 Non-pressure [...] in right toe(s) (ICD-10 - M79.674) 01/17/2025 Ingrowing nail (ICD-10 - L60.0) 03/21/2025 Ingrowing nail (ICD-10 - L60.0) 03/21/2025 Pain in right toe(s) (ICD-10 - M79.674) 01/17/2025 Pain in right toe(s) (ICD-10 - M79.674) 04/11/2025 Pain in right toe(s) (ICD-10 - M79.674) 08/01/2025 Ingrowing nail (ICD-10 - L60.0) 05/30/2025 Pain in right toe(s) (ICD-10 - M79.674) 05/01/2025 Onychomycosis (ICD-10 - B35.1) 1. FUNGAL [...] protection, healing and overall foot health 10/09/2025 Intermittent claudication of both lower extremities due to atherosclerosis (ICD-10 - I70.213) 08/01/2025 Pain in right toe(s) (ICD-10 - M79.674) 10/09/2025 Ingrowing nail (ICD-10 - L60.0) 05/30/2025 Pain in left toe(s) (ICD-10 - M79.675) 05/01/2025 Pain in right toe(s) (ICD-10 - M79.674) 04/11/2025 Pain in left toe(s) (ICD-10 - M79.675) 01/17/2025 Pain in left toe(s) (ICD-10 - M79.675) 03/21/2025 Pain in left toe(s) (ICD-10 - M79.675) 01/17/2025 Intermittent claudication of both lower extremities due to atherosclerosis (ICD-10 - I70.213) 03/21/2025 Intermittent claudication of both lower extremities due to atherosclerosis (ICD-10 - I70.213) 05/01/2025 Pain in left toe(s) (ICD-10 - M79.675) 04/11/2025 Intermittent claudication of both lower extremities due to atherosclerosis (ICD-10 - I70.213) 10/09/2025 Non-pressure chronic ulcer of right heel and midfoot limited to breakdown of skin (ICD-10 - L97.411) 08/01/2025 Pain in left toe(s) (ICD-10 - M79.675) 05/30/2025 Intermittent claudication of both lower extremities due to atherosclerosis (ICD-10 - I70.213) 05/30/2025 Difficulty in walking involving ankle and foot joint (ICD-10 - R26.2) 08/01/2025 Intermittent claudication of both lower extremities due to atherosclerosis (ICD-10 - I70.213) 10/09/2025 Difficulty in walking involving ankle and foot joint (ICD-10 - R26.2) 04/11/2025 Difficulty in walking involving ankle and foot joint (ICD-10 - R26.2) 05/01/2025 Intermittent claudication of both lower extremities due to atherosclerosis (ICD-10 - I70.213) 03/21/2025 Difficulty in walking involving ankle and foot joint (ICD-10 - R26.2) 01/17/2025 Difficulty in walking involving ankle and foot joint (ICD-10 - R26.2) 01/17/2025 Type 2 diabetes mellitus with other diabetic neurological complication (ICD-10 - E11.49) 03/21/2025 Type 2 diabetes mellitus with other [...] if patient notices any acute changes. 04/11/2025 Type 2 diabetes mellitus with other [...] if patient notices any acute changes. 05/01/2025 Difficulty in walking involving ankle and [...] if patient notices any acute changes. 08/01/2025 Difficulty in walking involving ankle and [...] if patient notices any acute changes. 08/01/2025 Type 2 diabetes mellitus with other [...] if patient notices any acute changes. 05/01/2025 Type 2 diabetes mellitus with other [...] sooner if patient notices any acute changes. 01/17/2025 Other DIABETIC FOOT CARE: Both feet [...] the patient use an emollient such as qtko-ioq-yarwbiz Eucerin cream, Vanicream, or other lotion to the affected area. 03/21/2025 Other Emollient: Recommend that the patient use an emollient such as dwkd-tfi-fbjxvbn Eucerin cream, Vanicream, or other lotion to [...] 100mg, take until finished to prevent resistance. 04/11/2025 Other Emollient: Recommend that the patient use an emollient such as divn-mxs-utxpatk Eucerin cream, Vanicream, or other lotion to [...] to patient - apply to wound daily 05/01/2025 Other Emollient: Recommend that the patient use an emollient such as xlkp-ubj-naotzxc Eucerin cream, Vanicream, or other lotion to [...] wound wash solution instead before applying medihoney. 05/30/2025 Other Emollient: Recommend that the patient use an emollient such as pdwu-lqq-edbanfx Eucerin cream, Vanicream, or other lotion to the affected area. 08/01/2025 Other Emollient: Recommend that the patient use an emollient such as etdm-itm-vhjrqvv Eucerin cream, Vanicream, or other lotion to the affected area. 10/09/2025 Other Emollient: Recommend that the patient use an emollient such as zhsm-enl-acroncm Eucerin cream, Vanicream, or other lotion to the affected area. Plan Of Treatment Next Appt Details Provider Name:KERRI RAMIREZ, 12/11/2025 03:00:00 PM, [address], [place], [place], [id number], Insurance Providers Payer Name Payer Address Payer Phone Subscriber Number Group Number Insured Name Patient Relationship to Insured Coverage Start Date Coverage End Date [facility] ([facility]) ATTN CLAIMS [address] [place] [address] [id number] ROHIT VAZQUEZ Self - patient is the insured Medical (General) History Medical History History ICD Code Diabetic
[2025-11-08 15:26] LABS: Alanine Aminotransferase 21 U/L (6-50); Albumin Level 4.3 g/dL (3.5-5.1); Alkaline Phosphatase 107 U/L (38-126); Anion Gap 7 mmol/L (4-12); Aspartate Amino Transferase 20 U/L (17-59); Bilirubin,Total 0.8 mg/dL (0.2-1.3); Blood Urea Nitrogen 55 mg/dL (9-20); Carbon Dioxide 25 mmol/L (22-30); Chloride 103 mmol/L (98-107); Estimated CRCL calculation 24 ml/min; Estimated Glomerular Filt Rate 30; Glucose 165 mg/dL (65-110); Lipase 376 U/L (23-300); Magnesium 2.4 mg/dL (1.6-2.3); Potassium 4.4 mmol/L (3.4-5.0); Sodium 135 mmol/L (137-145); Total Protein 7.5 g/dL (6.3-8.2)
--- OUTSIDE RECORDS SUMMARY | 2025-11-08 15:26 | XMS_ITS | Patient Health Record ---
Author Organization [facility] Address [address] [address] [place] [address] Care Team Providers Care Pan Devulcanizer Name Role Phone Oleksandr Teixeira M.D. 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 (213358028) Type 2 diabetes mellitus with other circulatory complications (E11.59) Active confirmed Encounters Encounter Location Date Provider Diagnosis [address] [id number] 06/14/2025 Tiana Gilmore Type 2 diabetes mellitus with foot ulcer E11.621 and Non-pressure chronic ulcer of right heel and midfoot with fat layer exposed L97.412 [facility] [address] [id number] 06/21/2025 Tiana Gilmore Type 2 diabetes mellitus with foot ulcer E11.621 and Non-pressure chronic ulcer of right heel and midfoot with fat layer exposed L97.412 [facility] [address] [id number] 06/28/2025 Tiana Gilmore Type 2 diabetes mellitus with foot ulcer E11.621 ; Non-pressure chronic ulcer of right heel and midfoot with fat layer exposed L97.412 and Type 2 diabetes mellitus with other circulatory complications E11.59 [facility] [address] [place], [place] [id number] 07/12/2025 Tiana Gilmore Type 2 diabetes mellitus with other circulatory complications E11.59 and Personal history of diseases of the skin and subcutaneous tissue Z87.2 Assessments Encounter Date Diagnosis (ICD Code) Assessment Notes Treatment Notes Treatment Clinical Notes Section Notes 06/21/2025 Type 2 diabetes mellitus with foot ulcer (ICD-10 - E11.621) 06/28/2025 Non-pressure chronic ulcer of right heel and midfoot with fat layer exposed (ICD-10 - L97.412) 06/28/2025 Type 2 diabetes mellitus with foot ulcer (ICD-10 - E11.621) 06/14/2025 Non-pressure chronic ulcer of right heel and midfoot with fat layer exposed (ICD-10 - L97.412) 06/14/2025 Type 2 diabetes mellitus with foot ulcer (ICD-10 - E11.621) 07/12/2025 Personal history of diseases of the skin and subcutaneous tissue (ICD-10 - Z87.2) 07/12/2025 Type 2 diabetes mellitus with other circulatory complications (ICD-10 - E11.59) 06/21/2025 Non-pressure chronic ulcer of right heel and midfoot with fat layer exposed (ICD-10 - L97.412) 06/28/2025 Type 2 diabetes mellitus with other circulatory complications (ICD-10 - E11.59) Plan Of Treatment No Information Insurance Providers Payer Name Payer Address Payer Phone Subscriber Number Group Number Insured Name Patient Relationship to Insured Coverage Start Date Coverage End Date [facility] [address] [place] [address] [phone] [id number] Madhuri Sanders Self - patient is the insured
[2025-11-08 15:27] LABS: Calcium 13.3 mg/dL (8.4-10.2)
--- NOTE | 2025-11-08 16:19 | PM.IMHP2 ---
H&P: HPI History of Present Illness Date/Time: 11/08/25 16:19 Chief Complaint: Abnormal Lab Narrative: 85 y/o M with PMH of CKD S3, HTN, ID s/p stent placement x1 and DM presents here with abnormal outpatient lab work. The patient presents here from home on 11/08 for further evaluation of abnormal outpatient lab work. He reports he had lab work performed yesterday, 11/07, and was told his calcium was abnormal at 13.6. He currently reports/denies polydipsia, urinary frequency, abdominal pain, constipation, nausea, vomiting, and/or loss?of?appetite. He does report worsening 50 unit and intermittent fogginess/confusion. However he remains A&O x4 and a good historian. He has a documented history of hyperparathyroidism. He additionally has a history of CKD, with some worsening in his renal function. Creatinine 1.65/BUN 37/GFR 41 in December of 2024, now 2.26/BUN 55, GFR 28 this month (Oct 2025). Initial VS at presentation: 97.2? F, HR 61, R 16, 166/68, and 99% on RA. ED workup showed: No leukocytosis, no anemia, creatinine 2.1 to/BUN 55/GFR 30, calcium 13.3 with a normal albumin level, magnesium 2.4, glucose 165, lipase 376. UA showed 3+ glucose otherwise unremarkable. EKG showed sinus bradycardia with first-degree AV block, anteroseptal infarct age indeterminate. Review of Systems Review of Systems: All systems reviewed & are unremarkable except as noted in HPI and below PMFSH Past Medical History Medical History History of myocardial infarction Type 2 diabetes mellitus with unspecified complications Essential (primary) hypertension Chronic kidney disease, stage 3b Surgical History Surgical History 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 H/O cataract removal with insertion of prosthetic lens left eye 04/04/24, right eye 03/19/24 Social History Social History Smoking status: Former smoker Tobacco type: cigarettes Second hand tobacco smoke exposure: No Alcohol intake: current Drinks per week: 1 Substance use: never Substance use type: unknown Lack of Transportation: No Lack of Food: Never True Current Housing: I Have Housing Concerned About Future Housing: No Difficulty Paying Gas/Electric Bills: No Difficulty Paying for Meds: No Currently Unemployed: No Education: Bachelor's Degree Difficulty w/ Childcare or Family Care: No Gender identity (if verbalized by the patient): Male Spiritual care concerns: No Meds Home Medications and Allergies Home Medications ?Medication ?Instructions ?Recorded ?Confirmed ?Type acetaminophen 500 mg tablet 500 mg PO Q6H PRN pain 05/10/23 11/08/25 History (Tylenol Extra Strength) aspirin,buffered (calcium 1 tablet PO DAILY 05/10/23 11/08/25 History carbonate-magnesium) 81 mg tablet blood sugar diagnostic (OneTouch 05/10/23 11/08/25 History Ultra Test strips) omega [id number]-iyq-zku-fish oil 1,000 mg 1 cap PO DAILY 05/10/23 11/08/25 History (120 mg-180 mg) capsule (Fish Oil) polyethylene glycol 3350 17 17 g PO DAILY PRN constipation 05/10/23 11/08/25 History gram/dose oral powder (Miralax) diclofenac sodium 1 % topical gel 2 g topical DAILY 11/08/23 11/08/25 History B-complex with vitamin C 1 cap PO DAILY 05/15/24 11/08/25 History dapagliflozin propanediol 5 mg 5 mg PO DAILY 05/15/24 11/08/25 History tablet (Farxiga) atorvastatin 10 mg tablet 10 mg PO .twice weekly 11/13/24 11/08/25 History clopidogrel 75 mg tablet 75 mg PO DAILY 11/13/24 11/08/25 History ezetimibe 10 mg tablet 10 mg PO DAILY 11/13/24 11/08/25 History isosorbide mononitrate 30 mg 30 mg PO DAILY 11/13/24 11/08/25 History tablet,extended release 24 hr metoprolol succinate 50 mg 50 mg PO DAILY 11/13/24 11/08/25 History tablet,extended release 24 hr levothyroxine 50 mcg capsule 50 mcg PO DAILY 05/14/25 11/08/25 History metformin 500 mg tablet 500 mg PO BIDWMEAL 05/14/25 11/08/25 History timolol 0.5 % eye drops 1 drp EACH EYE Q12H 05/14/25 11/08/25 History Allergies Allergy/AdvReac Type Severity Reaction Status Date / Time atorvastatin Allergy Muscle Pain Verified 11/08/25 12:31 lisinopril Allergy Muscle Pain Verified 11/08/25 12:31 niacin (From Niaspan Allergy Rash Verified 11/08/25 12:31 Extended-Release) losartan hydrochlorothiazide Allergy Muscle Pain Uncoded 05/14/25 09:28 penicllin Allergy Rash Uncoded 05/14/25 09:28 jardiance AdvReac Intermediate muscle pain Uncoded 05/14/25 09:28 Vital Signs Vital Signs - 24 hr 11/08/25 12:36 11/08/25 14:22 11/08/25 14:24 Temperature 97.2 F L Pulse Rate 61 58 L Respiratory Rate 16 18 18 Blood Pressure 166/68 H 157/76 H Pulse Oximetry 99 100 98 Oxygen Delivery Room Air Room Air Exam Const: General: comfortable and no acute distress Other: , male, elderly, nontoxic appearance HENMT: Face/Nose/Sinus: Normal nares present Mouth: Yes moist mucous membranes Eyes: General: appearance normal, both eyes and all related structures Sclera: sclerae normal Pupils: Equal, round and reactive pupils present EOM: EOMs intact bilaterally Resp: Effort & Inspection: normal respiratory effort Auscultation: clear to auscultation bilaterally Cardio: Rate: regular rate Rhythm: regular rhythm Other: S1-S2 present without murmur, rub, ectopy GI: Other: Abdomen soft, nondistended, nontender. Normoactive bowel sounds in all quadrants. Skin: General skin exam: normal color and no rashes or lesions noted Wounds: no wounds Neuro: Speech: normal speech Motor exam (neuro): 5/5 motor strength present throughout Sensory Exam: normal sensation Other: A&O x4 Extrem: General: normal to inspection Psych: Mental Status: mental status grossly normal Affect: normal affect Other: Good insight and judgment, pleasant Results Labs Labs: Short CBC 11/08/25 Range/Units 14:48 WBC 5.7 (4.5-10.0) K/mm3 Hgb 16.3 (14.0-18.0) g/dL Hct 47.9 (42.0-52.0) % Plt Count 150 (150-375) k/mm3 [facility] 11/08/25 14:48 Sodium 135 L Potassium 4.4 Chloride 103 Carbon Dioxide 25 BUN 55 H Creatinine 2.12 H Glucose 165 H Calcium 13.3 H* Liver Function 11/08/25 Range/Units 14:48 Total Bilirubin 0.8 (0.2-1.3) mg/dL AST 20 (17-59) U/L ALT 21 (6-50) U/L Alkaline Phosphatase 107 (38-126) U/L Albumin 4.3 (3.5-5.1) g/dL Urine 11/08/25 Range/Units 14:33 Urine Color Yellow (Yellow) Urine Appearance Clear (Clear) Urine pH 5.5 (5.0-9.0) Ur Specific Antoine 1.017 (1.001-1.035) Urine Protein Negative (Negative) mg/dL Urine Glucose (UA) 3+ H (Negative) mg/dL Quality VTE Prophylaxis VTE prophylaxis: mechanical ordered Assessment and Plan Assessment and plan (1) Hypercalcemia: Code(s): E83.52 - Hypercalcemia Status: Acute Assessment and Plan: Calcium 13.6 on 11/07, repeat today (11/08) was 13.3. Has history of CKD, recently worsened. Patient also has documented history of secondary hyperparathyroidism per nephrology. Albumin within normal limits. - IV fluids: 1L bolus -> 150 mL/hr x1L - calcitonin SQ x1, repeat CMP this evening - nephrology consulted - PTH pending, add ionized calcium, vit d, uric acid, phosphorus - trend electrolytes (2) Essential (primary) hypertension: Code(s): I10 - Essential (primary) hypertension Status: Acute Assessment and Plan: - chronic, currently 160 through 78, stable. - continue home medications: Imdur, metoprolol - monitor (3) Chronic kidney disease, stage 3b: Code(s): N18.32 - Chronic kidney disease, stage 3b Status: Acute Assessment and Plan: History of CKD stage IIIB. Follows with the nephrology team at [facility]. Last visit with their team in April of 2025. Previous lab work reviewed, creatinine 1.65, BUN 37, GFR 41 in 12/2024. Creatinine in 2.12, BUN 55, GFR 30 upon admission on 11/08. - nephrology consulted - trend renal function - trend electrolytes, correct as needed (4) Type 2 diabetes mellitus with unspecified complications: Code(s): E11.8 - Type 2 diabetes mellitus with unspecified complications Status: Acute Assessment and Plan: - hypoglycemia protocol - POC blood glucose ACHS - home medication: Hold metformin and Farxiga - correct regimen ordered - low dose TIDWM, based off BMI - A1C ordered, none on file Plan Diet: Diabetic GI Prophylaxis: n/a DVT Prophylaxis: SCDs IV fluids: 1L -> 150 mL/hr x1L Lines/Tubes: pIV Code Status: Full code Prior Studies I have reviewed the following patient records and this information was taken into consideration when formulating the assessment and plan.: previous labs, previous ER visits, previous hospitalizations and previous clinic visits Time Spent with Patient Time with patient: less than 45 minutes Hospitalist MIPS Advance Care Plan I have confirmed that the patient's Advanced Care Plan is present, code status is documented, or surrogate decision maker is listed in patient medical record.: Yes Medication Reconciliation I have utilized all available resources to obtain, update and review the patients current medications (includes all prescriptions, OTC, herbals, cannabis, and nutritional supplements).: Yes
[2025-11-08 16:25] VITALS: BP 163/78; PULSE 61; RESP 18; O2SAT 100
--- NOTE | 2025-11-08 17:16 | WPCEDHO ---
ED Hand Off Checklist All vitals saved: yes IV Site documented: yes All med administrations documented: yes Triage Note Triage Note Pt to ED stating he had lab work 11/08/25 14:22 drawn yesterday and that he was told to come to the ED due to abnormal calcium levels. Per pt chart lab work shows his Calcium was 13.6. Pt states no complaints on arrival. Allergies atorvastatin Allergy (Verified 11/08/25 12:31) Muscle Pain lisinopril Allergy (Verified 11/08/25 12:31) Muscle Pain niacin (From Niaspan Extended-Release) Allergy (Verified 11/08/25 12:31) Rash losartan hydrochlorothiazide Allergy (Uncoded 05/14/25 09:28) Muscle Pain penicllin Allergy (Uncoded 05/14/25 09:28) Rash jardiance Adverse Reaction (Intermediate, Uncoded 05/14/25 09:28) muscle pain dry mouth Administered/Completed Medications Discontinued Medications Sodium Chloride (Normal Saline Iv) 1,000 mls @ 999 mls/hr IV CONT .Q1H1M STA Stop: 11/08/25 15:27 Last Infusion: 11/08/25 15:57 Dose: Infused Documented By: Admin: 11/08/25 14:53 Dose: 999 mls/hr Documented By: ROXANN Interventions/Assessments General Assessment Start: 11/08/25 12:30 Freq: Status: Active Protocol: Document 11/08/25 14:24 ROXANN (Rec: 11/08/25 14:25 ROXANN [id number]) GA Neurological Assessment Neurological Yes Assessment WNL Level of Alert,Awake Consciousness Arousable to Verbal Orientation Oriented to Person,Oriented to Place,Oriented to Time Behavior Appropriate,Cooperative Memory Description Intact Ability to Maintain Normal Balance Facial Symmetry Symmetrical Speech Pattern Clear GA HEENT Assessment HEENT Assessment WNL No Head Symptoms Dizziness GA Cardiovascular Assessment Cardiovascular Yes Assessment WNL GA Respiratory Assessment Symptoms None Respiratory Rate (12 18 -20) Cough Description None Oxygen Delivery Room Air Method Pulse Oximetry (90- 98 100) GA Gastrointestinal Assessment Gastrointestinal Yes Assessment WNL GA Genitourinary Assessment Genitourinary WNL Parameters GA Reproductive Assessment Reproductive Yes Assessment WNL GA Psychosocial Assessment Psychosocial Yes Assessment WNL IV / Saline Lock, Insert Start: 11/08/25 14:27 Freq: STAT Status: Active Protocol: Document 11/08/25 14:53 AJW (Rec: 11/08/25 14:53 AJW [id number]) IV Assessment Peripheral Access Right Forearm IV Catheter Access Initiated IV Insertion Date 11/08/25 IV Insertion Time 14:53 Catheter Gauge 18 IV Site Assessment WNL IV Care and WNL Maintenance Last Vital Signs Temperature 97.2 F L 11/08/25 12:36 Pulse Rate 61 11/08/25 16:25 Respiratory Rate 18 11/08/25 16:25 Pulse Oximetry 100 11/08/25 16:25 Blood Pressure 163/78 H 11/08/25 16:25 Blood Pressure Mean 106 11/08/25 16:25 Oxygen Delivery Room Air 11/08/25 14:22 Weight 72.1 kg 11/08/25 14:22 Last Result - Abnormals Only Lymph % (Auto) 16.2 % (18.3-44.2) L 11/08/25 14:48 Miner % (Auto) 15.1 % (2.6-8.5) H 11/08/25 14:48 Miner # (Auto) 0.9 K/mm3 (0.1-0.6) H 11/08/25 14:48 Sodium 135 mmol/L (137-145) L 11/08/25 14:48 BUN 55 mg/dL (9-20) H 11/08/25 14:48 Creatinine 2.12 mg/dL (0.7-1.3) H 11/08/25 14:48 Estimated GFR 30 (59-) L 11/08/25 14:48 Glucose 165 mg/dL (65-110) H 11/08/25 14:48 Calcium 13.3 mg/dL (8.4-10.2) H* 11/08/25 14:48 Magnesium 2.4 mg/dL (1.6-2.3) H 11/08/25 14:48 Lipase 376 U/L (23-300) H 11/08/25 14:48 Urine Glucose (UA) 3+ mg/dL (Negative) H 11/08/25 14:33 Most Recent Suicide Severity Rating Suicide Severity Rating NO RISK INDICATED 11/08/25 14:22
[2025-11-08] MEDS: ACETAMINOPHEN 325 MG TABLET 650 MG PO (17:46)
[2025-11-08] MEDS: LACTATED RINGERS 1,000 ML 150 ML IV CONT (18:41)
[2025-11-08 20:08] VITALS: BP 154/66; PULSE 64; RESP 16; TEMP 36.3; O2SAT 98
[2025-11-08] MEDS: TIMOLOL MALEATE 0.5% OP SOLN 5 ML BOTTLE 1 DROP EACH EYE (21:42)
[2025-11-08] MEDS: CALCITONIN SALMON INJ 400 UNITS/2 ML VIAL 280 UNITS SUB-Q (21:42)
[2025-11-08] MEDS: METOPROLOL SUCCINATE EXT REL 50 MG TABCR PO (22:58)
--- NOTE | 2025-11-08 23:49 | PC.NURSE ---
As per the patient, he used to take his metoprolol at night because of stomach upset at morning time So, the patient requested to change his metoprolol to night time.spoke with Dr. Chambers regarding changing the time of metoprolol 50mg XR from morning to night time .She agrees to change the schedule and for today one dose of metoprolol 50mg was given.From tomorrow its changed to night time.
[2025-11-09 01:15] LABS: Alanine Aminotransferase 20 U/L (6-50); Albumin Level 3.9 g/dL (3.5-5.1); Alkaline Phosphatase 98 U/L (38-126); Anion Gap 8 mmol/L (4-12); Aspartate Amino Transferase 22 U/L (17-59); Bilirubin,Total 0.7 mg/dL (0.2-1.3); Blood Urea Nitrogen 46 mg/dL (9-20); Calcium 12.0 mg/dL (8.4-10.2); Carbon Dioxide 21 mmol/L (22-30); Chloride 107 mmol/L (98-107); Estimated CRCL calculation 27 ml/min; Estimated Glomerular Filt Rate 34; Glucose 167 mg/dL (65-110); Potassium 4.0 mmol/L (3.4-5.0); Sodium 136 mmol/L (137-145); Total Protein 6.8 g/dL (6.3-8.2); Uric Acid 10.2 mg/dL (3.5-8.5)
[2025-11-09] MEDS: LEVOTHYROXINE SODIUM 50 MCG TABLET PO (05:36)
[2025-11-09 06:00] VITALS: BP 135/65; PULSE 68; RESP 16; TEMP 37.5; O2SAT 98
[2025-11-09 06:24] LABS: Hematocrit 43.6 % (42.0-52.0); Hemoglobin 15.2 g/dL (14.0-18.0); Immature Granulocyte Percent A 0.3 % (0-0.5); Lymphocytes Absolute Auto 0.87 K/mm3 (0.9-3.2); Mean Corpuscular HGB Conc 34.9 g/dl (32-36); Mean Corpuscular Hemoglobin 32.0 pg (26-34); Mean Corpuscular Volume 91.8 fl (80-100); Nucleated Red Blood Cells Absolute Auto 0.000 K/mm3 (0.0-0.012); Nucleated Red Blood Cells Perc 0.0 % (0.0-0.2); Platelet Count Result 151 k/mm3 (150-375); Red Blood Count 4.75 M/mm3 (4.6-6.20); White Blood Count 6.2 K/mm3 (4.5-10.0)
[2025-11-09 06:32] LABS: Hemoglobin A1C 8.3 % (<5.7)
[2025-11-09 06:43] LABS: Alanine Aminotransferase 19 U/L (6-50); Albumin Level 3.7 g/dL (3.5-5.1); Alkaline Phosphatase 92 U/L (38-126); Anion Gap 6 mmol/L (4-12); Aspartate Amino Transferase 22 U/L (17-59); Bilirubin,Total 0.7 mg/dL (0.2-1.3); Blood Urea Nitrogen 45 mg/dL (9-20); Calcium 11.6 mg/dL (8.4-10.2); Carbon Dioxide 21 mmol/L (22-30); Chloride 107 mmol/L (98-107); Estimated CRCL calculation 27 ml/min; Estimated Glomerular Filt Rate 34; Glucose 199 mg/dL (65-110); Potassium 4.2 mmol/L (3.4-5.0); Sodium 134 mmol/L (137-145); Total Protein 6.5 g/dL (6.3-8.2)
[2025-11-09 08:00] VITALS: PULSE 68; RESP 16; O2SAT 98
[2025-11-09] MEDS: DICLOFENAC SODIUM 1% 100 GM GEL (*BKC) 1 APPLIC TOPICAL (09:09)
[2025-11-09] MEDS: ISOSORBIDE MONONITRATE 30 MG TAB.ER.24H PO (09:09)
[2025-11-09] MEDS: ASPIRIN 81 MG ENTERIC TABLET PO (09:09)
[2025-11-09] MEDS: EZETIMIBE 10 MG TABLET PO (09:09)
[2025-11-09] MEDS: TIMOLOL MALEATE 0.5% OP SOLN 5 ML BOTTLE 1 DROP EACH EYE ×2 (09:10→20:04)
[2025-11-09] MEDS: OMEGA 3 POLYUNSAT FATTY ACIDS 1 GM CAP PO (09:10)
[2025-11-09] MEDS: CLOPIDOGREL BISULFATE 75 MG TABLET PO (09:10)
--- NOTE | 2025-11-09 09:27 | P.PNIM_ITS ---
Assessment and Plan Assessment and Plan (1) Hypercalcemia: Code(s): E83.52 - Hypercalcemia Status: Acute Assessment and Plan: Calcium 13.6 on 11/07, repeat today (11/08) was 13.3. Has history of CKD, recently worsened. Patient also has documented history of secondary hyperparathyroidism per nephrology. Albumin within normal limits. - IV fluids: 1L bolus -> 150 mL/hr x1L - calcitonin SQ x1, repeat CMP this evening - nephrology consulted - PTH pending, add ionized calcium, vit d, uric acid, phosphorus - trend electrolytes 11/09 trending down: 13.3->12->11.6 today (2) Essential (primary) hypertension: Code(s): I10 - Essential (primary) hypertension Status: Acute Assessment and Plan: - chronic, currently 160 through 78, stable. - continue home medications: Imdur, metoprolol - monitor (3) Chronic kidney disease, stage 3b: Code(s): N18.32 - Chronic kidney disease, stage 3b Status: Acute Assessment and Plan: History of CKD stage IIIB. Follows with the nephrology team at [facility]. Last visit with their team in April of 2025. Previous lab work reviewed, creatinine 1.65, BUN 37, GFR 41 in 12/2024. Creatinine in 2.12, BUN 55, GFR 30 upon admission on 11/08. - nephrology consulted - trend renal function - trend electrolytes, correct as needed nephrology consulted- awaiting recommendations (4) Type 2 diabetes mellitus with unspecified complications: Code(s): E11.8 - Type 2 diabetes mellitus with unspecified complications Status: Acute Assessment and Plan: - hypoglycemia protocol - POC blood glucose ACHS - home medication: Hold metformin and Farxiga - correct regimen ordered - low dose TIDWM, based off BMI - A1C ordered, none on file 11/09- hgA1C 8.3 Plan Diet: Diabetic GI Prophylaxis: n/a DVT Prophylaxis: SCDs IV fluids: 1L -> 150 mL/hr x1L Lines/Tubes: pIV Code Status: Full code Medical Record Review I have reviewed the following patient records and this information was taken into consideration when formulating the assessment and plan.: previous labs Time Spent With Patient Time with patient: 25 - 35 minutes Subjective Date/time seen: 11/09/25 09:27 Interval history: 85 y/o M with PMH of CKD S3, HTN, [place] s/p stent placement x1 and DM presents here with abnormal outpatient lab work. The patient presents here from home on 11/08 for further evaluation of abnormal outpatient lab work. He reports he had lab work performed yesterday, 11/07, and was told his calcium was abnormal at 13.6. He currently reports/denies polydipsia, urinary frequency, abdominal pain, constipation, nausea, vomiting, and/or loss?of?appetite. He does report worsening 50 unit and intermittent fogginess/confusion. However he remains A&O x4 and a good historian. He has a documented history of hyperparathyroidism. He additionally has a history of CKD, with some worsening in his renal function. Creatinine 1.65/BUN 37/GFR 41 in December of 2024, now 2.26/BUN 55, GFR 28 this month (Oct 2025). Initial VS at presentation: 97.2? F, HR 61, R 16, 166/68, and 99% on RA. ED workup showed: No leukocytosis, no anemia, creatinine 2.1 to/BUN 55/GFR 30, calcium 13.3 with a normal albumin level, magnesium 2.4, glucose 165, lipase 376. UA showed 3+ glucose otherwise unremarkable. EKG showed sinus bradycardia with first-degree AV block, anteroseptal infarct age indeterminate. 11/09 pt is seen and examined. Ca trending down- 11.6 today. Nephrology consult pending. Pt denies any acute issues today-no chest pain, no sob, no n/v/d. Review of Systems Review of Systems: All systems reviewed & are unremarkable except as noted in HPI and below Exam Const: General: comfortable and no acute distress Other: , male, elderly, nontoxic appearance HENMT: Face/Nose/Sinus: Normal nares present Mouth: Yes moist mucous membranes Eyes: General: appearance normal, both eyes and all related structures Sclera: sclerae normal Pupils: Equal, round and reactive pupils present EOM: EOMs intact bilaterally Resp: Effort & Inspection: normal respiratory effort Auscultation: clear to auscultation bilaterally Cardio: Rate: regular rate Rhythm: regular rhythm Other: S1-S2 present without murmur, rub, ectopy GI: Other: Abdomen soft, nondistended, nontender. Normoactive bowel sounds in all quadrants. Skin: General skin exam: normal color and no rashes or lesions noted Wounds: no wounds Neuro: Cranial nerves: Yes Equal, round and reactive pupils present Speech: normal speech Motor exam (neuro): 5/5 motor strength present throughout Sensory Exam: normal sensation Other: A&O x4 Extrem: General: normal to inspection Psych: Mental Status: mental status grossly normal Affect: normal affect Other: Good insight and judgment, pleasant Objective Data Vital Signs Vital Signs: Vital Signs - 24 hr 11/08/25 12:36 11/08/25 14:22 11/08/25 14:24 Temperature 97.2 F L Pulse Rate 61 58 L Respiratory Rate 16 18 18 Blood Pressure 166/68 H 157/76 H Pulse Oximetry 99 100 98 Oxygen Delivery Room Air Room Air 11/08/25 16:25 11/08/25 20:08 11/08/25 20:45 Temperature 97.3 F L Pulse Rate 61 64 Respiratory Rate 18 16 Blood Pressure 163/78 H 154/66 H Pulse Oximetry 100 98 Oxygen Delivery Room Air 11/09/25 06:00 Temperature 99.5 F Pulse Rate 68 Respiratory Rate 16 Blood Pressure 135/65 Pulse Oximetry 98 Oxygen Delivery Intake/Output Intake/Output: Intake & Output 11/06/25 11/07/25 11/08/25 11/09/25 23:59 23:59 23:59 23:59 Intake Total 1000 794 Balance 1000 794 Meds/Results Medications: Active Medications Generic Name Dose Route Start Last Admin Trade Name Freq PRN Reason Stop Dose Admin Acetaminophen 650 mg 11/08/25 16:10 11/08/25 17:46 Acetaminophen 325 Mg Tablet PO 650 mg Q6H PRN Administration Pain Rated 1-3 Aspirin 81 mg 11/09/25 09:00 11/09/25 09:09 Aspirin 81 Mg Enteric Tablet PO 81 mg QAM [place] Administration Clopidogrel Bisulfate 75 mg 11/09/25 09:00 11/09/25 09:10 Clopidogrel Bisulfate 75 Mg Tablet PO 75 mg DAILY [place] Administration Dextrose 12.5 gm 11/08/25 16:31 Dextrose 50% 25 Gm/50 Ml Syringe IV PUSH PRN PRN Hypoglycemia Protocol Diclofenac Sodium 1 applic 11/09/25 09:00 11/09/25 09:09 Diclofenac Sodium 1% 100 Gm Gel (*Bkc) TOPICAL 1 applic DAILY [place] Administration Docusate Sodium 100 mg 11/08/25 16:10 Docusate Sodium 100 Mg Capsule PO Q12H PRN Constipation Ezetimibe 10 mg 11/09/25 09:00 11/09/25 09:09 Ezetimibe 10 Mg Tablet PO 10 mg DAILY [facility] Administration Fish Oil 1 gm 11/09/25 09:00 11/09/25 09:10 [place] 3 Polyunsat Fatty Acids 1 Gm Cap PO 1 gm DAILY [place] Administration Glucagon 1 mg 11/08/25 16:31 Glucagon For Inj 1 Mg Vial IM PRN PRN Hypoglycemia Protocol Glucose 15 gm 11/08/25 16:31 Glucose Oral Gel 15 Gm Of Glucse In 37.5 Gm Tube PO PRN PRN Hypoglycemia Protocol Dextrose 1,000 mls @ 100 mls/hr 11/08/25 16:31 Dextrose 5% 1,000 Ml IVPB PRN PRN Hypoglycemia Protocol Insulin Aspart 2 - 5 units 11/08/25 17:00 11/09/25 09:08 Insulin Aspart (*Bkc) 100 Units/Ml SUB-Q Not Given TIDWM [facility] Protocol Isosorbide Mononitrate 30 mg 11/09/25 09:00 11/09/25 09:09 Isosorbide Mononitrate 30 Mg Tab.Er.24h PO 30 mg DAILY [facility] Administration Levothyroxine Sodium 50 mcg 11/09/25 06:30 11/09/25 05:36 Levothyroxine Sodium 50 Mcg Tablet PO 50 mcg DAILY@0630 [facility] Administration Metoprolol Succinate 50 mg 11/09/25 21:00 Metoprolol Succinate Ext Rel 50 Mg Tabcr PO DAILY [facility] Ondansetron HCl 4 mg 11/08/25 16:10 Ondansetron Inj 4 Mg/2 Ml Vial IV PUSH Q6H PRN Nausea And Vomiting Polyethylene Glycol 8.5 gm 11/08/25 20:00 Polyethylene Glycol 3350 17 Gm Powd.Pack PO DAILY PRN Constipation Timolol Maleate 1 drop 11/08/25 21:00 11/09/25 09:10 Timolol Maleate 0.5% Op Soln 5 Ml Bottle EACH EYE 1 drop Q12HR [facility] Administration Vitamin B Complex/Vitamin C 1 each 11/09/25 12:00 Vitamin B Complex/Vit C Capsule PO DAILY@1200 [facility] Labs Labs: Laboratory Results - last 24 hr 11/08/25 11/08/25 11/08/25 14:33 14:48 19:37 WBC 5.7 RBC 5.20 Hgb 16.3 Hct 47.9 MCV 92.1 MCH 31.3 MCHC 34.0 RDW 12.4 Plt Count 150 MPV 10.2 Immature Gran % (Auto) 0.4 Neut % (Auto) 64.2 Lymph % (Auto) 16.2 L [place] % (Auto) 15.1 H Eos % (Auto) 3.2 Baso % (Auto) 0.9 Lymph # (Auto) 0.92 [place] # (Auto) 0.9 H Eos # (Auto) 0.2 Baso # (Auto) 0.1 Abs Immat Gran (auto) 0.02 Absolute Neuts (auto) 3.7 Absolute Nucleated RBC 0.000 Nucleated RBC % 0.0 Sodium 135 L Potassium 4.4 Chloride 103 Carbon Dioxide 25 Anion Gap 7 BUN 55 H Creatinine 2.12 H Estim Creat Clear Calc 24 Estimated GFR 30 L Glucose 165 H POC Capillary Glucose 130 H Hemoglobin A1c Uric Acid Calcium 13.3 H* Phosphorus Magnesium 2.4 H Total Bilirubin 0.8 AST 20 ALT 21 Alkaline Phosphatase 107 Total Protein 7.5 Albumin 4.3 Lipase 376 H Vitamin D 25-Hydroxy Urine Color Yellow Urine Appearance Clear Urine pH 5.5 Ur Specific [place] 1.017 Urine Protein Negative Urine Glucose (UA) 3+ H Urine Ketones Negative Ur Blood (Man) Negative Urine Nitrate Negative Urine Bilirubin Negative Urine Urobilinogen 0.2 Leukocyte Esterase Rfl Negative 11/09/25 11/09/25 11/09/25 00:56 06:09 07:41 WBC 6.2 RBC 4.75 Hgb 15.2 Hct 43.6 MCV 91.8 MCH 32.0 MCHC 34.9 RDW 12.3 Plt Count 151 MPV 10.3 Immature Gran % (Auto) 0.3 Neut % (Auto) 66.8 Lymph % (Auto) 14.1 L [place] % (Auto) 15.4 H Eos % (Auto) 2.4 Baso % (Auto) 1.0 Lymph # (Auto) 0.87 L [place] # (Auto) 1.0 H Eos # (Auto) 0.2 Baso # (Auto) 0.1 Abs Immat Gran (auto) 0.02 Absolute Neuts (auto) 4.1 Absolute Nucleated RBC 0.000 Nucleated RBC % 0.0 Sodium 136 L 134 L Potassium 4.0 4.2 Chloride 107 107 Carbon Dioxide 21 L 21 L Anion Gap 8 6 BUN 46 H 45 H Creatinine 1.92 H 1.88 H Estim Creat Clear Calc 27 27 Estimated GFR 34 L 34 L Glucose 167 H 199 H POC Capillary Glucose 184 H Hemoglobin A1c 8.3 H Uric Acid 10.2 H Calcium 12.0 H 11.6 H Phosphorus 3.4 Magnesium Total Bilirubin 0.7 0.7 AST 22 22 ALT 20 19 Alkaline Phosphatase 98 92 Total Protein 6.8 6.5 Albumin 3.9 3.7 Lipase Vitamin D 25-Hydroxy 51.3 Urine Color Urine Appearance Urine pH Ur Specific [place] Urine Protein Urine Glucose (UA) Urine Ketones Ur Blood (Man) Urine Nitrate Urine Bilirubin Urine Urobilinogen Leukocyte Esterase Rfl Quality VTE Prophylaxis VTE prophylaxis: mechanical ordered
--- NOTE | 2025-11-09 12:28 | P.CONNP_ITS ---
Assessment and Plan Assessment and plan (1) Acute kidney injury: Code(s): N17.9 - Acute kidney failure, unspecified Status: Acute Assessment and Plan: * admission creatinine slightly above baseline (2.12mg/dL) * outpatient labs prior to admission demonstrated a creatinine of 2.26mg/dl (on 11/07) * etiology not entirely clear: * hypercalcemia? * prerenal factors? * infection? * other? * check renal ultrasound and urine studies * s/p IVFs in ER -- creatinine already improved/better * follow trend of repeat labs and UOP (2) Stage 3b chronic kidney disease: Code(s): N18.32 - Chronic kidney disease, stage 3b Status: Acute Assessment and Plan: * baseline creatinine runs ~ 1.6 - 2.0mg/dl for the last couple of years * secondary to hypertension, diabetes, vascular disease, and age-related change * follows with Dr. Hunt for ongoing management of CKD (3) Hypercalcemia: Code(s): E83.52 - Hypercalcemia Status: Acute Assessment and Plan: * as noted by outpatient labs and labs on admission (calcium 13.3mg/dL) * however, improvement noted since admission: * calcium down to 11.6mg/dL today * s/p IVFs and one time dose of calcitonin * evaluation in progress: * SPEP & UPEP with immunofixation, Vitamin D, PTHrp, 1,25 Vitamin D, iCa, and TESSA level in progress * check skeletal survey * consider bone scan * follow trend of repeat calcium levels (4) Coronary artery disease: Code(s): I25.10 - Atherosclerotic heart disease of [place] coronary artery without angina pectoris Status: Chronic Assessment and Plan: * known history with associated [place] * continue ASA/plavix/BB/statin (5) Essential (primary) hypertension: Code(s): I10 - Essential (primary) hypertension Status: Chronic Assessment and Plan: * reasonable control at this time * follow trend of hemodynamics (6) Type 2 diabetes mellitus with unspecified complications: Code(s): E11.8 - Type 2 diabetes mellitus with unspecified complications Status: Chronic Assessment and Plan: * follow accu-cheks * glycemic control per hospitalist I will continue to follow the patient with you while he remains hospitalized and make further recommendations as deemed necessary. Thank you for allowing me to participate in the care of this patient. L History of Present Illness Reason for Consult Consult date: 11/09/25 Reason for consult: acute renal failure (on chronic kidney disease) and Other (hypercalcemia) Chief Complaint Chief complaint: Hypercalcemia History of Present Illness Narrative: The patient is an 85-year-old male with a past medical history as outlined below who presented to [facility] Emergency Room due to abnormal outpatient blood work. The patient had outpatient labs done on 11/07/2025 for ongoing management of his chronic medical issues and problems. these outpatient blood test results demonstrate significant hypercalcemia with reported value of 13.6 mg/dL. He was called by his primary care physician with regard to these labs and instructed to come to the emergency room for further assessment. Upon further questioning, the patient does report some intermittent fogginess and associated confusion in association with generalized fatigue. However, he denies any history of polydipsia, urinary frequency, abdominal pain, constipation, nausea, vomiting, diarrhea, or loss of appetite. He otherwise has been feeling reasonably well prior to his presentation to the ER. Workup and evaluation emergency room demonstrated the patient to be hemodynamically stable and afebrile. Routine blood tests were done which demonstrated a normal white blood cell count, normal hemoglobin, normal platelet count, mild worsening of his kidney function with a creatinine of 2.12 and otherwise normal electrolytes aside from a repeat calcium level of 13.3 In association with a normal albumin, magnesium 2.4, glucose 165, and a lipase of 376. His urinalysis was otherwise unremarkable aside from 3+ glucose and his EKG showed sinus bradycardia with first-degree AV block. He was given a L of IV fluids and subsequently admitted to the hospital for further evaluation and therapy Since his admission, he also resistant received a 1 time dose of calcitonin and with a combination of IV fluids and this 1 time dose of calcitonin, his serum calcium level has improved to a level of 11.6 mg/dL. Renal consultation was requested due to his acute kidney injury/ acute renal failure on top of his baseline chronic kidney disease in association with hypercalcemia. The patient normally follows with Dr. Yovany Hunt for management of his chronic kidney disease and by his labs done about 6 months ago, his renal function was well within his baseline status. More importantly, these outpatient labs also showed a normal calcium level as well. His baseline creatinine runs around 1.6 - 2.0 mg/dL although his outpatient labs showed a creatinine of 2.26 mg/dL, his admission labs show his renal function/creatinine closer to his baseline of around 2.12 mg/dL. Serial labs in the last 24 hours show his creatinine down to 1.88 mg/dL by labs done this morning. Currently, at the time my evaluation, he appears to be in no acute distress. Review of Systems 2 Review of Systems: As per HPI. [facility] Past Medical History Medical History (Updated 11/10/25 @ 16:59 by Augustine Poole MD) History of myocardial infarction Type 2 diabetes mellitus with unspecified complications Essential (primary) hypertension Surgical History Surgical History 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 H/O cataract removal with insertion of prosthetic lens left eye 04/04/24, right eye 03/19/24 Social History Social History Smoking status: Former smoker Tobacco type: cigarettes Second hand tobacco smoke exposure: No Alcohol intake: current Drinks per week: 1 Substance use: never Substance use type: unknown Lack of Transportation: No Lack of Food: Never True Current Housing: I Have Housing Concerned About Future Housing: No Difficulty Paying Gas/Electric Bills: No Difficulty Paying for Meds: No Currently Unemployed: No Education: Bachelor's Degree Difficulty w/ Childcare or Family Care: No Gender identity (if verbalized by the patient): Male Spiritual care concerns: No Meds Home Medications and Allergies Home Medications ?Medication ?Instructions ?Recorded ?Confirmed ?Type acetaminophen 500 mg tablet 500 mg PO Q6H PRN pain 11/08/25 History (Tylenol Extra Strength) aspirin,buffered (calcium 1 tablet PO DAILY 05/10/23 1 01/09/25 History carbonate-magnesium) 81 mg tablet blood sugar diagnostic (OneTouch 05/10/23 11/08/25 [employer] & Image Ultra Test strips) omega 0-pay-rvn-fish oil 1,000 mg 1 cap PO DAILY 05/1011/08/25 History (120 mg-180 mg) capsule (Fish Oil) polyethylene glycol 3350 17 17 g PO DAILY PRN constipa tion 05/10/23 11/08/25 History gram/dose oral powder (Miralax) diclofenac sodium 1 % topical gel 2 g topical DAILY 11/08/25 History B-complex with vitamin C 1 cap PO DAILY 05/15/2410/28 History dapagliflozin propanediol 5 mg 5 mg PO DAILY 05/15/24 11/08/25 History tablet (Farxiga) atorvastatin 10 mg tablet 10 mg PO .twice weekly 11/1311/08/25 History clopidogrel 75 mg tablet 75 mg PO DAILY 11/13/2410/28 History ezetimibe 10 mg tablet 10 mg PO DAILY 11/13/2410/28 History isosorbide mononitrate 30 mg 30 mg PO DAILY 11/13/24 1 01/09/25 History tablet,extended release 24 hr metoprolol succinate 50 mg 50 mg PO DAILY 11/13/2411/21 History tablet,extended release 24 hr levothyroxine 50 mcg capsule 50 mcg PO DAILY 05/14/25 11/08/25 History metformin 500 mg tablet 500 mg PO BIDWMEAL 05/14/25 11/08/25 History timolol 0.5 % eye drops 1 drp EACH EYE Q12H 05/14/25 11/08/25 History Allergies Allergy/AdvReac Type Severity Reaction Status Date / Time atorvastatin Allergy Muscle Pain Verified 11/08/25 12:31 lisinopril Allergy Muscle Pain Verified 11/08/25 12:31 niacin (From Niaspan Allergy Rash Verified 11/08/25 12:31 Extended-Release) losartan hydrochlorothiazide Allergy Muscle Pain Uncoded 05/14/25 09:28 penicllin Allergy Rash Uncoded 05/14/25 09:28 jardiance AdvReac Intermediate muscle pain Uncoded 05/14/25 09:28 Vital Signs Vital Signs Temp Pulse Resp BP Pulse Ox O2 Del Method 11/09/25 08:00 68 16 98 Room Air 11/09/25 06:00 99.5 F 68 16 135/65 98 11/08/25 20:45 Room Air 11/08/25 20:08 97.3 F L 64 16 154/66 H 98 11/08/25 16:25 61 18 163/78 H 100 Exam 2 Narrative: GENERAL APPEARANCE: well developed well nourished male in no acute distress HEENT: normocephalic, atraumatic, normal conjunctiva and sclera, nares patient NECK: no lymphadenopathy, thyromegaly, or JVD MOUTH: normal lips, teeth, and gums CARDIOVASCULAR: RRR, normal S1 and S2, no rub RESPIRATORY: clear to auscultation bilaterally ABDOMEN: soft, nontender, nondistended, positive bowel sounds present EXTREMITIES: no evidence of cyanosis, clubbing, or edema NEUROLOGICAL: alert and oriented x 3; CN II - XII intact bilaterally; no focal deficits noted Results Lab Results 11/10/25 06:18 11/10/25 06:18 Lab results: Most recent lab results Calcium 11.6 mg/dL (8.4-10.2) H 11/09/25 06:09 Phosphorus 3.4 mg/dL (2.5-4.5) 11/09/25 00:56 Magnesium 2.4 mg/dL (1.6-2.3) H 11/08/25 14:48
[2025-11-09] MEDS: VITAMIN B COMPLEX/VIT C CAPSULE 1 EACH PO (12:51)
[2025-11-09] MEDS: INSULIN ASPART (*BKC) 100 UNITS/ML SUB-Q ×2 (12:51→16:53)
[2025-11-09 14:00] VITALS: BP 106/62; PULSE 50; RESP 16; TEMP 36.4; O2SAT 98
[2025-11-09 18:42] LABS: Albumin Level 3.8 g/dL (3.5-5.1); Anion Gap 8 mmol/L (4-12); Blood Urea Nitrogen 46 mg/dL (9-20); Calcium 11.6 mg/dL (8.4-10.2); Carbon Dioxide 22 mmol/L (22-30); Chloride 103 mmol/L (98-107); Estimated CRCL calculation 25 ml/min; Estimated Glomerular Filt Rate 31; Glucose 264 mg/dL (65-110); Potassium 4.7 mmol/L (3.4-5.0); Sodium 133 mmol/L (137-145)
[2025-11-09] MEDS: METOPROLOL SUCCINATE EXT REL 50 MG TABCR PO (20:03)
[2025-11-09 20:05] VITALS: BP 119/62; PULSE 52; RESP 18; TEMP 36.6; O2SAT 96
[2025-11-09 21:43] LABS: Urine Eos QC 2nd Tech Confirmed
[2025-11-09 21:43] LABS: Urea Random Urine 290 MG/DL
[2025-11-09 21:44] LABS: Total Protein Urine Random 18 mg/dL; Ur Ttl Prot Creatinine Ratio 0.61 mg/mg (0-0.20)
[2025-11-10] MEDS: SODIUM CHLORIDE 0.9% IV 1,000 ML 75 ML IV CONT (00:27)
[2025-11-10] MEDS: LEVOTHYROXINE SODIUM 50 MCG TABLET PO (05:36)
[2025-11-10 06:11] VITALS: BP 110/50; PULSE 55; RESP 16; TEMP 36.6; O2SAT 97
[2025-11-10 07:01] LABS: Hematocrit 43.6 % (42.0-52.0); Hemoglobin 14.9 g/dL (14.0-18.0); Mean Corpuscular HGB Conc 34.2 g/dl (32-36); Mean Corpuscular Hemoglobin 31.5 pg (26-34); Mean Corpuscular Volume 92.2 fl (80-100); Platelet Count Result 159 k/mm3 (150-375); Red Blood Count 4.73 M/mm3 (4.6-6.20); White Blood Count 6.2 K/mm3 (4.5-10.0)
[2025-11-10 07:17] LABS: Albumin Level 3.8 g/dL (3.5-5.1); Anion Gap 8 mmol/L (4-12); Blood Urea Nitrogen 42 mg/dL (9-20); Calcium 10.9 mg/dL (8.4-10.2); Carbon Dioxide 20 mmol/L (22-30); Chloride 106 mmol/L (98-107); Estimated CRCL calculation 25 ml/min; Estimated Glomerular Filt Rate 32; Glucose 189 mg/dL (65-110); Potassium 4.2 mmol/L (3.4-5.0); Sodium 134 mmol/L (137-145)
--- NOTE | 2025-11-10 07:39 | PM.IMPN2 ---
Assessment and Plan Assessment and Plan (1) Hypercalcemia: Code(s): E83.52 - Hypercalcemia Status: Acute Assessment and Plan: Calcium 13.6 on 11/07, repeat today (11/08) was 13.3. Has history of CKD, recently worsened. Patient also has documented history of secondary hyperparathyroidism per nephrology. Albumin within normal limits. - IV fluids: 1L bolus -> 150 mL/hr x1L - calcitonin SQ x1, repeat CMP this evening - nephrology consulted - PTH pending, add ionized calcium, vit d, uric acid, phosphorus - trend electrolytes 11/09 trending down: 13.3->12->11.6 today 11/10 ca 10.9 nephrology consulted- appreciate recommendations 0.9 ns x [address] Poole (2) Essential (primary) hypertension: Code(s): I10 - Essential (primary) hypertension Status: Acute Assessment and Plan: - chronic, currently 160 through 78, stable. - continue home medications: Imdur, metoprolol - monitor reviewed and stable (3) Chronic kidney disease, stage 3b: Code(s): N18.32 - Chronic kidney disease, stage 3b Status: Deleted Assessment and Plan: History of CKD stage IIIB. Follows with the nephrology team at [facility]. Last visit with their team in April of 2025. Previous lab work reviewed, creatinine 1.65, BUN 37, GFR 41 in 12/2024. Creatinine in 2.12, BUN 55, GFR 30 upon admission on 11/08. - nephrology consulted - trend renal function - trend electrolytes, correct as needed nephrology consulted- appreciate recommendations (4) Type 2 diabetes mellitus with unspecified complications: Code(s): E11.8 - Type 2 diabetes mellitus with unspecified complications Status: Acute Assessment and Plan: - hypoglycemia protocol - POC blood glucose ACHS - home medication: Hold metformin and Farxiga - correct regimen ordered - low dose TIDWM, based off BMI - A1C ordered, none on file 11/09- hgA1C 8.3 (based on his age, goal under 7) -home meds- he is on farxiga 5 mg, metfromin 500 mg bid-will need to discuss prior to discharge and increase dose for one or both with a repeat hgA1C/kidney function in 3 month and close f/u with pcp Plan Diet: Diabetic GI Prophylaxis: n/a DVT Prophylaxis: SCDs IV fluids: 1L -> 150 mL/hr x1L Lines/Tubes: pIV Code Status: Full code Medical Record Review I have reviewed the following patient records and this information was taken into consideration when formulating the assessment and plan.: previous labs Time Spent With Patient Time with patient: 25 - 35 minutes Subjective Date/time seen: 11/10/25 07:39 Interval history: 85 y/o M with PMH of CKD S3, HTN, [place] s/p stent placement x1 and DM presents here with abnormal outpatient lab work. The patient presents here from home on 11/08 for further evaluation of abnormal outpatient lab work. He reports he had lab work performed yesterday, 11/07, and was told his calcium was abnormal at 13.6. He currently reports/denies polydipsia, urinary frequency, abdominal pain, constipation, nausea, vomiting, and/or loss?of?appetite. He does report worsening 50 unit and intermittent fogginess/confusion. However he remains A&O x4 and a good historian. He has a documented history of hyperparathyroidism. He additionally has a history of CKD, with some worsening in his renal function. Creatinine 1.65/BUN 37/GFR 41 in December of 2024, now 2.26/BUN 55, GFR 28 this month (Oct 2025). Initial VS at presentation: 97.2? F, HR 61, R 16, 166/68, and 99% on RA. ED workup showed: No leukocytosis, no anemia, creatinine 2.1 to/BUN 55/GFR 30, calcium 13.3 with a normal albumin level, magnesium 2.4, glucose 165, lipase 376. UA showed 3+ glucose otherwise unremarkable. EKG showed sinus bradycardia with first-degree AV block, anteroseptal infarct age indeterminate. 11/09 pt is seen and examined. Ca trending down- 11.6 today. Nephrology consult pending. Pt denies any acute issues today-no chest pain, no sob, no n/v/d. 11/10 pt is seen and examined. Dr Poole saw him yesterday, labs ordered. He is voicing no complains this morning. He is getting IV fluid x 1 bag. Using walker for ambulation. Review of Systems Review of Systems: All systems reviewed & are unremarkable except as noted in HPI and below Exam Const: General: comfortable and no acute distress Other: , male, elderly, nontoxic appearance HENMT: Face/Nose/Sinus: Normal nares present Mouth: Yes moist mucous membranes Eyes: General: appearance normal, both eyes and all related structures Sclera: sclerae normal Pupils: Equal, round and reactive pupils present EOM: EOMs intact bilaterally Resp: Effort & Inspection: normal respiratory effort Auscultation: clear to auscultation bilaterally Cardio: Rate: regular rate Rhythm: regular rhythm Other: S1-S2 present without murmur, rub, ectopy GI: Other: Abdomen soft, nondistended, nontender. Normoactive bowel sounds in all quadrants. Skin: General skin exam: normal color and no rashes or lesions noted Wounds: no wounds Neuro: Cranial nerves: Yes Equal, round and reactive pupils present Speech: normal speech Motor exam (neuro): 5/5 motor strength present throughout Sensory Exam: normal sensation Other: A&O x4 Extrem: General: normal to inspection Psych: Mental Status: mental status grossly normal Affect: normal affect Other: Good insight and judgment, pleasant Objective Data Vital Signs Vital Signs: Vital Signs - 24 hr 11/09/25 08:00 11/09/25 14:00 11/09/25 20:05 Temperature 97.5 F L 97.8 F Pulse Rate 68 50 L 52 L Respiratory Rate 16 16 18 Blood Pressure 106/62 119/62 Pulse Oximetry 98 98 96 Oxygen Delivery Room Air 11/09/25 20:05 11/10/25 06:11 Temperature 97.8 F Pulse Rate 55 L Respiratory Rate 16 Blood Pressure 110/50 L Pulse Oximetry 97 Oxygen Delivery Room Air Intake/Output Intake/Output: Intake & Output 11/07/25 11/08/25 11/09/25 11/10/25 23:59 23:59 23:59 23:59 Intake Total 1000 1271 240 Balance 1000 1271 240 Meds/Results Medications: Active Medications Generic Name Dose Route Start Last Admin Trade Name Freq PRN Reason Stop Dose Admin Acetaminophen 650 mg 11/08/25 16:10 11/08/25 17:46 Acetaminophen 325 Mg Tablet PO 650 mg Q6H PRN Administration Pain Rated 1-3 Aspirin 81 mg 11/09/25 09:00 11/09/25 09:09 Aspirin 81 Mg Enteric Tablet PO 81 mg QAM [place] Administration Clopidogrel Bisulfate 75 mg 11/09/25 09:00 11/09/25 09:10 Clopidogrel Bisulfate 75 Mg Tablet PO 75 mg DAILY [facility] Administration Dextrose 12.5 gm 11/08/25 16:31 Dextrose 50% 25 Gm/50 Ml Syringe IV PUSH PRN PRN Hypoglycemia Protocol Diclofenac Sodium 1 applic 11/09/25 09:00 11/09/25 09:09 Diclofenac Sodium 1% 100 Gm Gel (*Bkc) TOPICAL 1 applic DAILY [facility] Administration Docusate Sodium 100 mg 11/08/25 16:10 Docusate Sodium 100 Mg Capsule PO Q12H PRN Constipation Ezetimibe 10 mg 11/09/25 09:00 11/09/25 09:09 Ezetimibe 10 Mg Tablet PO 10 mg DAILY [facility] Administration Fish Oil 1 gm 11/09/25 09:00 11/09/25 09:10 [place] 3 Polyunsat Fatty Acids 1 Gm Cap PO 1 gm DAILY [facility] Administration Glucagon 1 mg 11/08/25 16:31 Glucagon For Inj 1 Mg Vial IM PRN PRN Hypoglycemia Protocol Glucose 15 gm 11/08/25 16:31 Glucose Oral Gel 15 Gm Of Glucse In 37.5 Gm Tube PO PRN PRN Hypoglycemia Protocol Dextrose 1,000 mls @ 100 mls/hr 11/08/25 16:31 Dextrose 5% 1,000 Ml IVPB PRN PRN Hypoglycemia Protocol Sodium Chloride 1,000 mls @ 75 mls/hr 11/10/25 00:15 11/10/25 00:27 Normal Saline Iv IV CONT 11/10/25 13:34 75 mls/hr .[id number] [facility] Administration Insulin Aspart 2 - 5 units 11/08/25 17:00 11/09/25 16:53 Insulin Aspart (*Bkc) 100 Units/Ml SUB-Q 2 units TIDWM [place] Administration Protocol Isosorbide Mononitrate 30 mg 11/09/25 09:00 11/09/25 09:09 Isosorbide Mononitrate 30 Mg Tab.Er.24h PO 30 mg DAILY [place] Administration Levothyroxine Sodium 50 mcg 11/09/25 06:30 11/10/25 05:36 Levothyroxine Sodium 50 Mcg Tablet PO 50 mcg DAILY@0630 [place] Administration Metoprolol Succinate 50 mg 11/10/25 21:00 Metoprolol Succinate Ext Rel 50 Mg Tabcr PO HS [facility] Ondansetron HCl 4 mg 11/08/25 16:10 Ondansetron Inj 4 Mg/2 Ml Vial IV PUSH Q6H PRN Nausea And Vomiting Polyethylene Glycol 8.5 gm 11/08/25 20:00 Polyethylene Glycol 3350 17 Gm Powd.Pack PO DAILY PRN Constipation Timolol Maleate 1 drop 11/08/25 21:00 11/09/25 20:04 Timolol Maleate 0.5% Op Soln 5 Ml Bottle EACH EYE 1 drop Q12HR [place] Administration Vitamin B Complex/Vitamin C 1 each 11/09/25 12:00 11/09/25 12:51 Vitamin B Complex/Vit C Capsule PO 1 each DAILY@1200 [place] Administration Labs Labs: Laboratory Results - last 24 hr 11/09/25 11/09/25 11/09/25 07:41 11:27 12:18 WBC RBC Hgb Hct MCV MCH MCHC RDW Plt Count MPV Sodium Potassium Chloride Carbon Dioxide Anion Gap BUN Creatinine Estim Creat Clear Calc Estimated GFR Glucose POC Capillary Glucose 184 H 243 H Calcium Phosphorus Albumin Urine Eosinophils None seen U Random Total Protein Ur Random Sodium Ur Random Urea Urine Creatinine Protein/Creat Ratio 2 11/09/25 11/09/25 11/09/25 16:29 18:12 20:25 WBC RBC Hgb Hct MCV MCH MCHC RDW Plt Count MPV Sodium 133 L Potassium 4.7 Chloride 103 Carbon Dioxide 22 Anion Gap 8 BUN 46 H Creatinine 2.08 H Estim Creat Clear Calc 25 Estimated GFR 31 L Glucose 264 H POC Capillary Glucose 226 H 191 H Calcium 11.6 H Phosphorus 4.3 Albumin 3.8 Urine Eosinophils U Random Total Protein Ur Random Sodium Ur Random Urea Urine Creatinine Protein/Creat Ratio 2 11/09/25 11/10/25 21:10 06:18 WBC 6.2 RBC 4.73 Hgb 14.9 Hct 43.6 MCV 92.2 MCH 31.5 MCHC 34.2 RDW 12.4 Plt Count 159 MPV 10.6 H Sodium 134 L Potassium 4.2 Chloride 106 Carbon Dioxide 20 L Anion Gap 8 BUN 42 H Creatinine 2.03 H Estim Creat Clear Calc 25 Estimated GFR 32 L Glucose 189 H POC Capillary Glucose Calcium 10.9 H Phosphorus 3.1 Albumin 3.8 Urine Eosinophils U Random Total Protein 18 Ur Random Sodium 30 Ur Random Urea 290 Urine Creatinine 29.4 Protein/Creat Ratio 2 0.61 H Quality VTE Prophylaxis VTE prophylaxis: mechanical ordered
[2025-11-10 07:56] LABS: Thyroid Stimulating Hormone Reflex 1.970 uIU/mL (0.465-4.68)
[2025-11-10] MEDS: CLOPIDOGREL BISULFATE 75 MG TABLET PO (08:32)
[2025-11-10] MEDS: ASPIRIN 81 MG ENTERIC TABLET PO (08:32)
[2025-11-10] MEDS: ISOSORBIDE MONONITRATE 30 MG TAB.ER.24H PO (08:32)
[2025-11-10] MEDS: EZETIMIBE 10 MG TABLET PO (08:32)
[2025-11-10] MEDS: OMEGA 3 POLYUNSAT FATTY ACIDS 1 GM CAP PO (08:33)
[2025-11-10] MEDS: DICLOFENAC SODIUM 1% 100 GM GEL (*BKC) 1 APPLIC TOPICAL (08:33)
[2025-11-10] MEDS: INSULIN ASPART (*BKC) 100 UNITS/ML SUB-Q ×3 (08:33→17:33)
[2025-11-10] MEDS: TIMOLOL MALEATE 0.5% OP SOLN 5 ML BOTTLE 1 DROP EACH EYE ×2 (08:33→21:01)
[2025-11-10 10:14] LABS: Parathyroid Intact < 14.5 pg/mL (14.5-75.2)
--- NOTE | 2025-11-10 12:17 | PM.PNNEP ---
Progress Note: A&P Assessment and Plan (1) Acute kidney injury: Code(s): N17.9 - Acute kidney failure, unspecified Status: Acute Assessment and Plan: slow improvement noted admission creatinine slightly above baseline (2.12mg/dL) outpatient labs prior to admission demonstrated a creatinine of 2.26mg/dl (on 11/07) etiology not entirely clear: hypercalcemia? prerenal factors? infection? other? evaluation to date noted: renal ultrasound pending urine electrolytes non-prerenal urine eosinophils negative mild proteinuria s/p IVFs at [facility] time follow trend of repeat labs and UOP (2) Stage 3b chronic kidney disease: Code(s): N18.32 - Chronic kidney disease, stage 3b Status: Acute Assessment and Plan: baseline creatinine runs ~ 1.6 - 2.0mg/dl for the last couple of years secondary to hypertension, diabetes, vascular disease, and age-related change follows with Dr. Hunt for ongoing management of CKD (3) Hypercalcemia: Code(s): E83.52 - Hypercalcemia Status: Acute Assessment and Plan: slow improvement as noted by outpatient labs and labs on admission (calcium 13.3mg/dL) however, improvement noted since admission: calcium down to 11.6mg/dL today s/p IVFs and one time dose of calcitonin evaluation in progress: intact PTH low (arguing against primary hyperparathyroidism) Vitamin D level okay TSH within normal limits SPEP & UPEP with immunofixation, PTHrp, iCa, TESSA level, urine calcium and 1,25 Vitamin D in progress skeletal survey results pending consider bone scan follow trend of repeat calcium levels (4) Coronary artery disease: Code(s): I25.10 - Atherosclerotic heart disease of [place] coronary artery without angina pectoris Status: Chronic Assessment and Plan: known history with associated IL continue ASA/plavix/BB/statin (5) Essential (primary) hypertension: Code(s): I10 - Essential (primary) hypertension Status: Chronic Assessment and Plan: reasonable control at this time follow trend of hemodynamics (6) Type 2 diabetes mellitus with unspecified complications: Code(s): E11.8 - Type 2 diabetes mellitus with unspecified complications Status: Chronic Assessment and Plan: follow accu-cheks glycemic control per hospitalist If calcium continues to improve, would not be opposed to discharge from renal perspective -- pending testing can be reviewed as an outpatient to determine next course of option. Will continue to follow. Subjective Date/time seen: 11/10/25 12:17 Interval history: Follow-up for acute kidney injury on chronic kidney disease and hypercalcemia. No apparent distresss noted at the time of my visit; repeat labs yesterday afternoon with no change in calcium and creatinine up a bit so getting another run of IVFs at this time; renal ultrasound and skeletal survey done earlier today but results are still pending; calcium doing better by AM labs. Exam Narrative: General: elderly but WD/WN male in NAD Heart: normal S1 and S2; no rub Lungs: clear to auscultation Abdomen: soft, nontender, nondistended, positive bowel sounds Extremities: no cyanosis or clubbing; no edema Skin: warm and dry Objective Data Vital Signs Vital Signs: Vital Signs Temp Pulse Resp BP Pulse Ox O2 Del Method 11/10/25 12:00 97.0 F L 51 L 18 137/60 98 11/10/25 08:00 Room Air 11/10/25 06:11 97.8 F 55 L 16 110/50 L 97 11/09/25 20:05 Room Air 11/09/25 20:05 97.8 F 52 L 18 119/62 96 Intake/Output Intake/Output: Intake & Output 11/07/25 11/08/25 11/09/25 11/10/25 23:59 23:59 23:59 23:59 Intake Total 1000 1271 720 Balance 1000 1271 720 Meds/Results Medications: Active Medications Generic Name Dose Route Start Last Admin Trade Name Freq PRN Reason Stop Dose Admin Acetaminophen 650 mg 11/08/25 16:10 11/08/25 17:46 Acetaminophen 325 Mg Tablet PO 650 mg Q6H PRN Administration Pain Rated 1-3 Aspirin 81 mg 11/09/25 09:00 11/10/25 08:32 Aspirin 81 Mg Enteric Tablet PO 81 mg QAM [place] Administration Clopidogrel Bisulfate 75 mg 11/09/25 09:00 11/10/25 08:32 Clopidogrel Bisulfate 75 Mg Tablet PO 75 mg DAILY [facility] Administration Dextrose 12.5 gm 11/08/25 16:31 Dextrose 50% 25 Gm/50 Ml Syringe IV PUSH PRN PRN Hypoglycemia Protocol Diclofenac Sodium 1 applic 11/09/25 09:00 11/10/25 08:33 Diclofenac Sodium 1% 100 Gm Gel (*Bkc) TOPICAL 1 applic DAILY [facility] Administration Docusate Sodium 100 mg 11/08/25 16:10 Docusate Sodium 100 Mg Capsule PO Q12H PRN Constipation Ezetimibe 10 mg 11/09/25 09:00 11/10/25 08:32 Ezetimibe 10 Mg Tablet PO 10 mg DAILY [facility] Administration Fish Oil 1 gm 11/09/25 09:00 11/10/25 08:33 [place] 3 Polyunsat Fatty Acids 1 Gm Cap PO 1 gm DAILY [facility] Administration Glucagon 1 mg 11/08/25 16:31 Glucagon For Inj 1 Mg Vial IM PRN PRN Hypoglycemia Protocol Glucose 15 gm 11/08/25 16:31 Glucose Oral Gel 15 Gm Of Glucse In 37.5 Gm Tube PO PRN PRN Hypoglycemia Protocol Dextrose 1,000 mls @ 100 mls/hr 11/08/25 16:31 Dextrose 5% 1,000 Ml IVPB PRN PRN Hypoglycemia Protocol Insulin Aspart 2 - 5 units 11/08/25 17:00 11/10/25 13:45 Insulin Aspart (*Bkc) 100 Units/Ml SUB-Q 2 units TIDWM [facility] Administration Protocol Isosorbide Mononitrate 30 mg 11/09/25 09:00 11/10/25 08:32 Isosorbide Mononitrate 30 Mg Tab.Er.24h PO 30 mg DAILY [facility] Administration Levothyroxine Sodium 50 mcg 11/09/25 06:30 11/10/25 05:36 Levothyroxine Sodium 50 Mcg Tablet PO 50 mcg DAILY@0630 [facility] Administration Metoprolol Succinate 50 mg 11/10/25 21:00 Metoprolol Succinate Ext Rel 50 Mg Tabcr PO HS [facility] Ondansetron HCl 4 mg 11/08/25 16:10 Ondansetron Inj 4 Mg/2 Ml Vial IV PUSH Q6H PRN Nausea And Vomiting Polyethylene Glycol 8.5 gm 11/08/25 20:00 Polyethylene Glycol 3350 17 Gm Powd.Pack PO DAILY PRN Constipation Timolol Maleate 1 drop 11/08/25 21:00 11/10/25 08:33 Timolol Maleate 0.5% Op Soln 5 Ml Bottle EACH EYE 1 drop Q12HR [facility] Administration Vitamin B Complex/Vitamin C 1 each 11/09/25 12:00 11/10/25 13:46 Vitamin B Complex/Vit C Capsule PO 1 each DAILY@1200 [facility] Administration Labs Labs: Laboratory Tests 11/10/25 06:18 11/10/25 06:18 Calcium 10.9 H Phosphorus 3.1 Albumin 3.8 TSH (Reflex) 1.970 PTH Intact < 14.5 L
[2025-11-10] MEDS: VITAMIN B COMPLEX/VIT C CAPSULE 1 EACH PO (13:46)
[2025-11-10 14:00] VITALS: BP 137/60; PULSE 51; RESP 18; TEMP 36.1; O2SAT 98
[2025-11-10 20:39] VITALS: BP 133/52; PULSE 56; RESP 18; TEMP 36.2; O2SAT 98
[2025-11-10 21:01] VITALS: PULSE 57
[2025-11-10] MEDS: METOPROLOL SUCCINATE EXT REL 50 MG TABCR PO (21:01)
[2025-11-10] MEDS: INSULIN GLARGINE (*BKC) 100 UNITS/ML 11 UNITS SUB-Q (21:40)
[2025-11-11] MEDS: LEVOTHYROXINE SODIUM 50 MCG TABLET PO (05:43)
[2025-11-11 06:00] VITALS: BP 139/64; PULSE 68; RESP 16; TEMP 36.4; O2SAT 96
[2025-11-11 06:06] LABS: Hematocrit 43.7 % (42.0-52.0); Hemoglobin 14.7 g/dL (14.0-18.0); Mean Corpuscular HGB Conc 33.6 g/dl (32-36); Mean Corpuscular Hemoglobin 31.6 pg (26-34); Mean Corpuscular Volume 94.0 fl (80-100); Platelet Count Result 149 k/mm3 (150-375); Red Blood Count 4.65 M/mm3 (4.6-6.20); White Blood Count 6.5 K/mm3 (4.5-10.0)
[2025-11-11 06:35] LABS: Albumin Level 3.7 g/dL (3.5-5.1); Anion Gap 7 mmol/L (4-12); Blood Urea Nitrogen 43 mg/dL (9-20); Calcium 11.3 mg/dL (8.4-10.2); Carbon Dioxide 20 mmol/L (22-30); Chloride 110 mmol/L (98-107); Estimated CRCL calculation 26 ml/min; Estimated Glomerular Filt Rate 33; Glucose 182 mg/dL (65-110); Potassium 4.1 mmol/L (3.4-5.0); Sodium 137 mmol/L (137-145)
[2025-11-11] MEDS: CLOPIDOGREL BISULFATE 75 MG TABLET PO (09:25)
[2025-11-11] MEDS: ASPIRIN 81 MG ENTERIC TABLET PO (09:25)
[2025-11-11] MEDS: EZETIMIBE 10 MG TABLET PO (09:25)
[2025-11-11] MEDS: ISOSORBIDE MONONITRATE 30 MG TAB.ER.24H PO (09:25)
[2025-11-11] MEDS: OMEGA 3 POLYUNSAT FATTY ACIDS 1 GM CAP PO (09:26)
[2025-11-11] MEDS: TIMOLOL MALEATE 0.5% OP SOLN 5 ML BOTTLE 1 DROP EACH EYE (09:26)
[2025-11-11] MEDS: DICLOFENAC SODIUM 1% 100 GM GEL (*BKC) 1 APPLIC TOPICAL (09:26)
--- NOTE | 2025-11-11 11:09 | PM.DS ---
DS: Admitting Diagnosis Discharge Date 11/11/25 Admitting Diagnosis Hypercalcemia DS: Discharge Diagnosis Discharge Diagnosis (1) Hypercalcemia: Code(s): E83.52 - Hypercalcemia Status: Acute (2) Essential (primary) hypertension: Code(s): I10 - Essential (primary) hypertension Status: Chronic (3) Chronic kidney disease, stage 3b: Code(s): N18.32 - Chronic kidney disease, stage 3b Status: Deleted (4) Type 2 diabetes mellitus with unspecified complications: Code(s): E11.8 - Type 2 diabetes mellitus with unspecified complications Status: Chronic DS: Summary Hospital Course Hospital Course: 85 y/o M with PMH of CKD S3, HTN, [place] s/p stent placement x1 and DM presents here with abnormal outpatient lab work. The patient presents here from home on 11/08 for further evaluation of abnormal outpatient lab work. He reports he had lab work performed yesterday, 11/07, and was told his calcium was abnormal at 13.6. He was not having polydipsia, urinary frequency, abdominal pain, constipation, nausea, vomiting, and/or loss?of?appetite. He was A&O x4 at presentation. He has a documented history of hyperparathyroidism. On presentation blood work was redrawn and calcium was 13.6. His repeat was 13.3. Nephrology was consult. Labs ordered were PTH, ionized calcium, vitamin-D, uric acid, phosphorus and electrolytes. He was given 1 time dose of calcitonin. His calcium was monitored. His calcium did start to decrease over hospital stay. On day of discharge calcium is 11.3. This is still slightly above normal. One dose of calcitonin given prior to discharge. Discussed with Nephrology and many of the labs that were ordered we will not return for several more days. His kidney function is at baseline. Recommend repeating labs in 1 week and following up outpatient with Nephrology. He is doing well. He is walking and up out of bed independently. He is not having any paresthesias, heart palpitations or memory problems on day of discharge. Time Spent with Patient Time attestation: Total time spent providing and/or coordinating discharge services: Exam Narrative: GENERAL: Comfortable, no acute distress HENMT: moist mucous membranes EYES: EOM intact b/l NECK: no lymphadenopathy RESPIRATORY: clear to auscultation, no increased respiratory effort CARDIO: Regular rate and rhythm GI: soft, nontender, bowel sounds present SKIN/EXTREMITIES: no rashes, no edema, no redness or tenderness NEURO: PROM intact, answers questions appropriately, A&O x4 DS: Data Data Completed and Pending Labs on day of discharge: Labs from last 24 hours 11/11/25 11/11/25 11/10/25 07:32 05:35 20:24 WBC 6.5 RBC 4.65 Hgb 14.7 Hct 43.7 MCV 94.0 MCH 31.6 MCHC 33.6 RDW 12.5 Plt Count 149 L MPV 10.4 Sodium 137 Potassium 4.1 Chloride 110 H Carbon Dioxide 20 L Anion Gap 7 BUN 43 H Creatinine 1.94 H Estim Creat Clear Calc 26 Estimated GFR 33 L Glucose 182 H POC Capillary Glucose 191 H 277 H Calcium 11.3 H Phosphorus 3.6 Albumin 3.7 Urine Calcium 11/10/25 11/10/25 11/10/25 20:15 16:58 11:41 WBC RBC Hgb Hct MCV MCH MCHC RDW Plt Count MPV Sodium Potassium Chloride Carbon Dioxide Anion Gap BUN Creatinine Estim Creat Clear Calc Estimated GFR Glucose POC Capillary Glucose 236 H 239 H Calcium Phosphorus Albumin Urine Calcium Pending Discharge Plan Discharge Attending physician on discharge: Gayatri Mckeon Consulting providers: Kami,Vipin; Augustine Poole Discharging Clinician: Gayatri Mckeon Patient Disposition: Home Activity: as tolerated Diet: renal Patient Instructions: Antibiotic Form Patient Language: [place] Stand Alone Forms: General Discharge Information Follow-up/Referrals: Augustine Poole MD [Physician, Nephrology] Discharge Medications: Continued (DME) OneTouch Ultra Test Strip See Rx Instructions .Route Rx Instructions: As directed aspirin,buffd-calcium carb-mag 81 mg tablet 1 tablet PO DAILY omega 6-gnr-reh-fish oil [Fish Oil] 1,000 mg (120 mg-180 mg) capsule 1 cap PO DAILY polyethylene glycol 3350 [Miralax] 17 gram/dose powder 17 g PO DAILY PRN (Reason: constipation) Rx Instructions: 1/2 dose per day if needed acetaminophen [Tylenol Extra Strength] 500 mg tablet 500 mg PO Q6H PRN (Reason: pain) diclofenac sodium 1 % gel 2 g topical DAILY Rx Instructions: apply to single elbow, wrist or hand; for hand includes palm/fingers/back of hand dapagliflozin propanediol [Farxiga] 5 mg tablet 5 mg PO DAILY B-complex with vitamin C Capsule 1 cap PO DAILY atorvastatin 10 mg tablet 10 mg PO .twice weekly Rx Instructions: take on Mon and Fri clopidogrel 75 mg tablet 75 mg PO DAILY ezetimibe 10 mg tablet 10 mg PO DAILY isosorbide mononitrate 30 mg tablet extended release 24 hr 30 mg PO DAILY metoprolol succinate 50 mg tablet extended release 24 hr 50 mg PO DAILY levothyroxine 50 mcg capsule 50 mcg PO DAILY Rx Instructions: take 1/2hr to and hr before breakfast on empty stomach timolol 0.5 % drops 1 drp EACH EYE Q12H metformin 500 mg tablet 500 mg PO BIDWMEAL Date of admission: 11/09/25 16:18 Primary Care Provider: PHYSICIAN NOT ON STAFF,NONSTAFF Admitting Provider: Tamir Dallas Attending physician on admission: Tamir Dallas Condition: Stable
[2025-11-11] MEDS: CALCITONIN SALMON INJ 400 UNITS/2 ML VIAL 280 UNITS SUB-Q (11:25)
--- NOTE | 2025-11-11 11:42 | P.PNNP_ITS ---
Progress Note: A&P Assessment and Plan (1) Acute kidney injury: Code(s): N17.9 - Acute kidney failure, unspecified Status: Acute Assessment and Plan: * slow improvement noted * admission creatinine slightly above baseline (2.12mg/dL) * outpatient labs prior to admission demonstrated a creatinine of 2.26mg/dl (on 11/07) * etiology not entirely clear: * hypercalcemia? * prerenal factors? * infection? * other? * evaluation to date noted: * renal ultrasound w/o obstruction (solitary kidney) * urine electrolytes non-prerenal * urine eosinophils negative * mild proteinuria * s/p IVFs * follow trend of repeat labs and UOP (2) Stage 3b chronic kidney disease: Code(s): N18.32 - Chronic kidney disease, stage 3b Status: Acute Assessment and Plan: * baseline creatinine runs ~ 1.6 - 2.0mg/dl for the last couple of years * secondary to hypertension, diabetes, vascular disease, and age-related change * follows with Dr. Hunt for ongoing management of CKD (3) Hypercalcemia: Code(s): E83.52 - Hypercalcemia Status: Acute Assessment and Plan: * slow improvement * as noted by outpatient labs and labs on admission (calcium 13.3mg/dL) * however, improvement noted since admission: * s/p IVFs and one time dose of calcitonin * evaluation in progress: * intact PTH low (arguing against primary hyperparathyroidism) * Vitamin D level okay * TSH within normal limits * SPEP & UPEP with immunofixation, PTHrp, iCa, TESSA level, urine calcium and 1,25 Vitamin D in progress * skeletal survey results negative * consider bone scan * will give more calcitionin today * follow trend of repeat calcium levels (4) Coronary artery disease: Code(s): I25.10 - Atherosclerotic heart disease of [place] coronary artery without angina pectoris Status: Chronic Assessment and Plan: * known history with associated NC * continue ASA/plavix/BB/statin (5) Essential (primary) hypertension: Code(s): I10 - Essential (primary) hypertension Status: Chronic Assessment and Plan: * reasonable control at this time * follow trend of hemodynamics (6) Type 2 diabetes mellitus with unspecified complications: Code(s): E11.8 - Type 2 diabetes mellitus with unspecified complications Status: Chronic Assessment and Plan: * follow accu-cheks * glycemic control per hospitalist Patient anxious for discharge and remains asymptomatic with regard to his mildly elevated calcium level -- several of his tests are pending which can probably be followed up on as an outpatient. Will plan repeat labs in a week after discharge to ensure calcium remains relatively stable Will continue to follow. L Subjective Date/time seen: 11/11/25 11:42 Interval history: Follow-up for acute kidney injury on chronic kidney disease and hypercalcemia. Renal functon/creatinine remains relatively stable but calcium up a bit by AM labs; he otherwise feels quite well and has no acute complaints at the time of my visit; anxious for discharge; no issues/events overnight or earlier this morning. Exam 2 Narrative: General: elderly but WD/WN male in NAD Heart: normal S1 and S2; no rub Lungs: clear to auscultation Abdomen: soft, nontender, nondistended, positive bowel sounds Extremities: no cyanosis or clubbing; no edema Skin: warm and intact Objective Data Vital Signs Vital Signs: Vital Signs Temp Pulse Resp BP Pulse Ox O2 Del Method 11/11/25 06:00 97.5 F L 68 16 139/64 96 11/10/25 21:01 57 L 11/10/25 20:39 97.1 F L 56 L 18 133/52 L 98 11/10/25 20:00 Room Air 11/10/25 14:00 97.0 F L 51 L 18 137/60 98 Intake/Output Intake/Output: Intake & Output 11/08/25 11/09/25 11/10/25 11/11/25 23:59 23:59 23:59 23:59 Intake Total 1000 1271 960 710 Balance 1000 1271 960 710 Meds/Results Medications: Active Medications Generic Name Dose Route Start Last Admin Trade Name Freq PRN Reason Stop Dose Admin Acetaminophen 650 mg 11/08/25 16:10 11/08/25 17:46 Acetaminophen 325 Mg Tablet PO 650 mg Q6H PRN Administration Pain Rated 1-3 Aspirin 81 mg 11/09/25 09:00 11/11/25 09:25 Aspirin 81 Mg Enteric Tablet PO 81 mg QAM CORONA Administration Calcitonin [place] 280 units 11/11/25 10:30 Calcitonin [place] Inj 400 Units/2 Ml Vial SUB-Q 11/12/25 22:31 Q12H COUNT INCLUDES THE [facility] Clopidogrel Bisulfate 75 mg 11/09/25 09:00 11/11/25 09:25 Clopidogrel Bisulfate 75 Mg Tablet PO 75 mg DAILY CORONA Administration Dextrose 12.5 gm 11/08/25 16:31 Dextrose 50% 25 Gm/50 Ml Syringe IV PUSH PRN PRN Hypoglycemia Protocol Diclofenac Sodium 1 applic 11/09/25 09:00 11/11/25 09:26 Diclofenac Sodium 1% 100 Gm Gel (*Bkc) TOPICAL 1 applic DAILY CORONA Administration Docusate Sodium 100 mg 11/08/25 16:10 Docusate Sodium 100 Mg Capsule PO Q12H PRN Constipation Ezetimibe 10 mg 11/09/25 09:00 11/11/25 09:25 Ezetimibe 10 Mg Tablet PO 10 mg DAILY CORONA Administration Fish Oil 1 gm 11/09/25 09:00 11/11/25 09:26 [place] 3 Polyunsat Fatty Acids 1 Gm Cap PO 1 gm DAILY CORONA Administration Glucagon 1 mg 11/08/25 16:31 Glucagon For Inj 1 Mg Vial IM PRN PRN Hypoglycemia Protocol Glucose 15 gm 11/08/25 16:31 Glucose Oral Gel 15 Gm Of Glucse In 37.5 Gm Tube PO PRN PRN Hypoglycemia Protocol Dextrose 1,000 mls @ 100 mls/hr 11/08/25 16:31 Dextrose 5% 1,000 Ml IVPB PRN PRN Hypoglycemia Protocol Insulin Aspart 2 - 5 units 11/08/25 17:00 11/11/25 09:24 Insulin Aspart (*Bkc) 100 Units/Ml SUB-Q Not Given TIDWM COUNT INCLUDES THE [facility] Protocol Insulin Glargine 11 units 11/10/25 21:30 11/10/25 21:40 Insulin Glargine (*Bkc) 100 Units/Ml 0.15 units/kg (11 units) 11 units SUB-Q Administration HS COR[place] Isosorbide Mononitrate 30 mg 11/09/25 09:00 11/11/25 09:25 Isosorbide Mononitrate 30 Mg Tab.Er.24h PO 30 mg DAILY [place] Administration Levothyroxine Sodium 50 mcg 11/09/25 06:30 11/11/25 05:43 Levothyroxine Sodium 50 Mcg Tablet PO 50 mcg DAILY@0630 [place] Administration Metoprolol Succinate 50 mg 11/10/25 21:00 11/10/25 21:01 Metoprolol Succinate Ext Rel 50 Mg Tabcr PO 50 mg HS [place] Administration Ondansetron HCl 4 mg 11/08/25 16:10 Ondansetron Inj 4 Mg/2 Ml Vial IV PUSH Q6H PRN Nausea And Vomiting Polyethylene Glycol 8.5 gm 11/08/25 20:00 Polyethylene Glycol 3350 17 Gm Powd.Pack PO DAILY PRN Constipation Timolol Maleate 1 drop 11/08/25 21:00 11/11/25 09:26 Timolol Maleate 0.5% Op Soln 5 Ml Bottle EACH EYE 1 drop Q12HR [place] Administration Vitamin B Complex/Vitamin C 1 each 11/09/25 12:00 11/10/25 13:46 Vitamin B Complex/Vit C Capsule PO 1 each DAILY@1200 CORONA Administration Radiology Results: ITS Impressions Renal Ultrasound 11/10/25 17:32 Impression: No acute process Skeletal Survey 11/11/25 07:58 IMPRESSION: No evidence of skeletal metastatic disease. Labs Labs: Laboratory Tests 11/11/25 05:35 11/11/25 05:35 Calcium 11.3 H Phosphorus 3.6 Albumin 3.7
[2025-11-11] MEDS: INSULIN ASPART (*BKC) 100 UNITS/ML SUB-Q (11:49)
[2025-11-11] MEDS: VITAMIN B COMPLEX/VIT C CAPSULE 1 EACH PO (11:54)
[2025-11-11 12:08] LABS: ACE 72 U/L (14-82)
[2025-11-11 15:09] LABS: Albumin 3.4 g/dL (2.9-4.4); Alpha-1-Globulin 0.3 g/dL (0.0-0.4); Alpha-2-Globulin 0.8 g/dL (0.4-1.0); Gamma Globulin 1.0 g/dL (0.4-1.8); Immunoglobulin A, Qn 214 mg/dL (61-437); Immunoglobulin G, Qn 1055 mg/dL (603-1613); Immunoglobulin M, Qn 53 mg/dL (15-143)
[2025-11-11 16:08] LABS: Calcium, Ionized 6.4 mg/dL (4.5-5.6)
[2025-11-12 10:08] LABS: Calcium, Urine 17.0 mg/dL (Not Estab.)
[2025-11-13 16:08] LABS: Albumin, U 39.5 % (.); Alpha-1-Globulin, U 4.4 % (.); Alpha-2-Globulin, U 10.0 % (.); Beta Globulin, U 26.7 % (.); Gamma Globulin, U 19.5 % (.)
[2025-11-17 00:06] LABS: 1,25-Dihydroxy, Vitamin D-2 <10 pg/mL (.); 1,25-Dihydroxy, Vitamin D-3 74 pg/mL (.); Total 1,25-Dihydroxy,Vitamin D 74 pg/mL (.)
== END 2025-11-11 13:25 | disposition home or self-care (01) | DRG 641 ==
LOC: ANHED 16:55 → ANH3MEDSUR 17:37
PROVIDERS: Internal Medicine Nephrology; Student in an Organized Health Care Education/Training Program; Admitting Provider Internal Medicine; Emergency Provider Emergency Medicine; Visit Provider Internal Medicine Critical Care Medicine
DX: E83.52 Hypercalcemia (principal); N17.9 Acute kidney failure, unspecified; I12.9 Hypertensive chronic kidney disease with stage 1 through stage 4 chronic kidney disease, or unspecified chronic kidney disease; E11.22 Type 2 diabetes mellitus with diabetic chronic kidney disease; N18.32 Chronic kidney disease, stage 3b; I25.10 Atherosclerotic heart disease of native coronary artery without angina pectoris; E21.3 Hyperparathyroidism, unspecified; I25.2 Old myocardial infarction; Z95.5 Presence of coronary angioplasty implant and graft; Z96.652 Presence of left artificial knee joint; Z87.891 Personal history of nicotine dependence
CPT/HCPCS: 36415; 76770; 77075; 80053; 80069; 81003; 82164; 82306; 82330; 82340; 82397; 82570; 82652; 82784; 82948; 83036; 83690; 83735; 83970; 84100; 84155; 84156; 84165; 84166; 84300; 84443; 84540; 84550; 85025; 85027; 85999; 86334; 86335; 93005; 96360; 96372; 99285; A9270; G0378; J0630; J1815; J7030; J7120

== ENCOUNTER 2025-11-20 13:24 | Inpatient (IN) | payer MEDICARE, BC, SELFPAY ==
--- NOTE | ~2025-11-20 | XR_ITS ---
EXAMINATION: XR chest 1V portable DATE: 11/22/2025 08:23 INDICATION: Hypercalcemia TECHNIQUE: frontal view of the chest was obtained. COMPARISON: None FINDINGS: The lungs are clear with no focal airspace opacities, pulmonary edema, pleural effusion or pneumothorax. The cardiomediastinal silhouette is normal. Cholecystectomy clips in right upper quadrant. IMPRESSION: 1. No acute cardiopulmonary disease. Reviewed, dictated and finalized at location A. [facility]
--- NOTE | ~2025-11-20 | NM_ITS ---
EXAMINATION: NM bone scan whole body DATE: 11/22/2025 12:24 INDICATION: Hypercalcemia TECHNIQUE: 24.5 mCi Tc-99m MDP was administered intravenously. Delayed whole- body scintigrams were obtained. COMPARISON: Skeletal survey and ultrasound dated 11/10/2025 FINDINGS: Photopenic defect at the left knee corresponding to a total knee arthroplasty with typical pattern of minimal adjacent increased uptake underlying the tibial tray and at the patella. Mild likely degenerative joint centered uptake at the right first metatarsophalangeal and bilateral acromioclavicular joints. Mild S- shaped curvature of the lumbar spine with mild likely degenerative uptake associated with a few of the lower lumbar facet joints. No other suspicious foci of abnormal bone uptake to suggest osseous metastatic disease. Absent right renal shadow consistent with reported prior right nephrectomy with no right kidney visualized on prior ultrasound. IMPRESSION: 1. Typical pattern of mild likely degenerative joint centered uptake and mild uptake along the margins of a left total knee arthroplasty. 2. No other suspicious foci of abnormal bone uptake to suggest osseous metastatic disease. 3. Status post right nephrectomy. Reviewed, dictated and finalized at location [facility]. [facility] IMPRESSION: 1. Typical pattern of mild likely degenerative joint centered uptake and mild u ptake along the margins of a left total knee arthroplasty. 2. No other suspicious foci of abnormal bone uptake to suggest osseous metastat ic disease. 3. Status post right nephrectomy.
[2025-11-20 14:34] VITALS: BP 126/59; PULSE 67; RESP 15; TEMP 36.6; O2SAT 97
--- NOTE | 2025-11-20 16:15 | ED.RECABL ---
HPI - Recheck/Abnormal Lab/Rx General Chief Complaint: Recheck/Abnormal Lab/Rx <RAJINDER Alba Last Filed: 11/20/25 16:28> Stated Complaint: revist high calcium low kidney function <RAJINDER Alba Last Filed: 11/20/25 16:28> Time Seen by Provider: 11/20/25 16:15 <RAJINDER Alba Last Filed: 11/20/25 16:28> Focused HPI: Patient is an 85 y/o male, with PMH of CKD, who presents to the ED with c/o abnormal labs. Patient reports he was recently admitted to the hospital here on 11/07-11/11 for hypercalcemia. Was on IV infusion and states his calcium did come down to an appropriate level. Has been seeing Dr. Hunt for this. States they were unable to figure out why calcium was elevated. Was not discharged on any new medications. States he had blood work re-drawn 2 days ago at [facility] and was told today that his Calcium level was 14.0 and to return to the ED. Patient endorses fatigue, difficultly ambulating, lightheadedness with position changes, confusion. Denies CP, SOB, JARVIS, myalgias. GENERAL: Well-appearing, well-nourished, and in no acute distress. HEAD: Normocephalic, atraumatic. CHEST: Clear to auscultation. ?No respiratory distress. HEART: Regular rate and rhythm.? NEURO: ?Alert and oriented x3. Patient screened in triage and initial orders placed.? ?Additional care and disposition to be based upon?diagnostic testing and treatment. <RAJINDER Alba Last Filed: 11/20/25 16:28> Source: patient and old records reviewed <RAJINDER Alba Last Filed: 11/20/25 16:28> Mode of arrival: ambulatory <RAJINDER Alba Last Filed: 11/20/25 16:28> Limitations: no limitations <RAJINDER Alba Last Filed: 11/20/25 16:28> History of Present Illness HPI narrative: patient is a 5-year-old gentleman presents emergency department with chief complaint of hypercalcemia patient reports that he has had issues with elevated calcium reports he has history of chronic kidney disease and has a single kidney patient was recently admitted for hypercalcemia saw his inbound call center representative in the office had blood work that showed have a calcium of 13.4 patient was recommended to come back to the hospital to be admitted but decided to wait the patient had an outpatient calcium done today that was 14.0 and told to come to the emergency department the patient states he has been feeling tired reports he feels somewhat lightheaded and reports that at times he just feels as though he is confused the patient reports this is similar to whenever his calcium levels were elevated <Prabhjot Villarreal MD - Last Filed: 11/20/25 20:09> Related Data Home Medications: Home Medications ?Medication ?Instructions ?Recorded ?Confirmed ?Last Taken ?Type acetaminophen 500 mg tablet 500 mg PO Q6H PRN pain 05/10/23 11/08/25 Unknown History (Tylenol Extra Strength) aspirin,buffered (calcium 1 tablet PO DAILY 05/10/23 11/08/25 Unknown History carbonate-magnesium) 81 mg tablet blood sugar diagnostic (OneTouch 05/10/23 11/08/25 Unknown History Ultra Test strips) omega 8-uin-llz-fish oil 1,000 mg 1 cap PO DAILY 05/10/23 11/08/25 Unknown History (120 mg-180 mg) capsule (Fish Oil) polyethylene glycol 3350 17 17 g PO DAILY PRN constipation 05/10/23 11/08/25 Unknown History gram/dose oral powder (Miralax) diclofenac sodium 1 % topical gel 2 g topical DAILY 11/08/23 11/08/25 Unknown History B-complex with vitamin C 1 cap PO DAILY 05/15/24 11/08/25 Unknown History dapagliflozin propanediol 5 mg 5 mg PO DAILY 05/15/24 11/08/25 Unknown History tablet (Farxiga) atorvastatin 10 mg tablet 10 mg PO .twice weekly 11/13/24 11/08/25 11/04/25 History clopidogrel 75 mg tablet 75 mg PO DAILY 11/13/24 11/08/25 Unknown History ezetimibe 10 mg tablet 10 mg PO DAILY 11/13/24 11/08/25 Unknown History isosorbide mononitrate 30 mg 30 mg PO DAILY 11/13/24 11/08/25 Unknown History tablet,extended release 24 hr metoprolol succinate 50 mg 50 mg PO DAILY 11/13/24 11/08/25 11/07/25 21:00 History tablet,extended release 24 hr 50 mg levothyroxine 50 mcg capsule 50 mcg PO DAILY 05/14/25 11/08/25 Unknown History metformin 500 mg tablet 500 mg PO BIDWMEAL 05/14/25 11/08/25 Unknown History timolol 0.5 % eye drops 1 drp EACH EYE Q12H 05/14/25 11/08/25 Unknown History <Augustina Motta PA-C - Last Filed: 11/20/25 16:28> Allergies/Adverse Reactions: Allergies Allergy/AdvReac Type Severity Reaction Status Date / Time atorvastatin Allergy Muscle Pain Verified 11/20/25 14:33 lisinopril Allergy Muscle Pain Verified 11/20/25 14:33 losartan Allergy Muscle Pain Verified 11/20/25 14:33 niacin (From Niaspan Allergy Rash Verified 11/20/25 14:33 Extended-Release) Penicillins Allergy Rash Verified 11/20/25 14:33 empagliflozin (From AdvReac Intermediate Muscle Verified 11/20/25 14:33 Jardiance) Pain, Dry Mouth <Augustina Motta PA-C - Last Filed: 11/20/25 16:28> Review of Systems Review of Systems: A 10 system review of systems was completed on the patient and is negative except for what is stated in the HPI. Nursing and ancillary documentation was reviewed. 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 H/O cataract removal with insertion of prosthetic lens left eye 04/04/24, right eye 03/19/24 <Augustina Motta PA-C - Last Filed: 11/20/25 16:28> Social History Social History: Social History Smoking status: Never smoker Tobacco type: cigarettes Second hand tobacco smoke exposure: No Alcohol intake: current Drinks per week: 1 Substance use: never Substance use type: unknown Lack of Transportation: No Lack of Food: Never True Current Housing: I Have Housing Concerned About Future Housing: No Difficulty Paying Gas/Electric Bills: No Difficulty Paying for Meds: No Currently Unemployed: No Education: Bachelor's Degree Difficulty w/ Childcare or Family Care: No Gender identity (if verbalized by the patient): Male Spiritual care concerns: No <Augustina Motta PA-C - Last Filed: 11/20/25 16:28> Exam Narrative: GENERAL: Well-appearing, well-nourished, and in no acute distress. HEAD: Normocephalic, atraumatic. EYES: PERRLA and EOMI. ENT: Nares clear, no rhinorrhea or epistaxis. Mucous membranes moist. NECK: Supple. CHEST: Clear to auscultation. No respiratory distress. HEART: Regular rate and rhythm. No murmur heard. Normal peripheral pulses. ABDOMEN: Soft, nontender, nondistended, normal active bowel sounds. EXTREMITIES: Normal range of motion. No edema. SKIN: Warm, dry, no rash. NEURO: No focal deficits. Alert and oriented x3. PSYCH: Normal mood and affect. <Prabhjot Villarreal MD - Last Filed: 11/20/25 20:09> Course Vital Signs Vital signs: Vital Signs Temperature 36.6 C 11/20/25 14:34 Pulse Rate 67 11/20/25 14:34 Respiratory Rate 15 11/20/25 14:34 Blood Pressure 126/59 L 11/20/25 14:34 Pulse Oximetry 97 11/20/25 14:34 Oxygen Delivery Room Air 11/20/25 14:34 Temperature 36.6 C 11/20/25 14:34 Pulse Rate 63 11/20/25 19:29 Respiratory Rate 15 11/20/25 14:34 Blood Pressure 124/74 12/24/25 19:29 Pulse Oximetry 98 11/20/25 19:29 Oxygen Delivery Room Air 11/20/25 14:34 <Augustina Motta PA-C - Last Filed: 11/20/25 16:28> Vital Signs Temperature 36.6 C 11/20/25 14:34 Pulse Rate 67 11/20/25 14:34 Respiratory Rate 15 11/20/25 14:34 Blood Pressure 126/59 L 11/20/25 14:34 Pulse Oximetry 97 11/20/25 14:34 Oxygen Delivery Room Air 11/20/25 14:34 Temperature 36.6 C 11/20/25 14:34 Pulse Rate 63 11/20/25 19:29 Respiratory Rate 15 11/20/25 14:34 Blood Pressure 124/74 11/20/25 19:29 Pulse Oximetry 98 11/20/25 19:29 Oxygen Delivery Room Air 11/20/25 14:34 <Prabhjot Vlilarreal MD - Last Filed: 11/20/25 20:09> MDM MDM Narrative Medical decision making narrative: MSE by FROYLAN in triage <Augustina Motta PA-C - Last Filed: 11/20/25 16:28> Differential Diagnosis Differential Diagnosis: differential diagnosis includes acute renal failure, hypercalcemia, electrolyte abnormality, laboratory studies were obtained today that showed a creatinine of 2.19 calcium was 13.1 the case was discussed with Dr. Poole who recommended doing an IV bisphosphonate and started hydration on the patient the patient will be admitted to the hospitalist service and Nephrology will follow <Prabhjot Villarreal MD - Last Filed: 11/20/25 20:09> Lab Data Result diagrams: 11/20/25 19:06 11/20/25 19:06 <Augustina Motta PA-C - Last Filed: 11/20/25 16:28> Labs: Lab Results 11/20/25 Range/Units 19:06 WBC 7.2 (4.5-10.0) K/mm3 RBC 5.28 (4.6-6.20) M/mm3 Hgb 16.9 (14.0-18.0) g/dL Hct 49.0 (42.0-52.0) % MCV 92.8 (80-100) fl MCH 32.0 (26-34) pg MCHC 34.5 (32-36) g/dl RDW 12.5 (11.5-14.5) % Plt Count 169 (150-375) k/mm3 MPV 9.8 (7.4-10.4) fl Immature Gran % (Auto) 0.4 (0-0.5) % Neut % (Auto) 64.1 (45.5-73.1) % Lymph % (Auto) 16.6 L (18.3-44.2) % [place] % (Auto) 14.9 H (2.6-8.5) % Eos % (Auto) 3.3 (0-4.4) % Baso % (Auto) 0.7 (0.2-1.2) % Lymph # (Auto) 1.19 (0.9-3.2) K/mm3 [place] # (Auto) 1.1 H (0.1-0.6) K/mm3 Eos # (Auto) 0.2 (0-0.3) K/mm3 Baso # (Auto) 0.1 (0.0-0.1) K/mm3 Abs Immat Gran (auto) 0.03 (0.00-0.031) K/mm3 Absolute Neuts (auto) 4.6 (1.3-6.7) K/mm3 Absolute Nucleated RBC 0.000 (0.0-0.012) K/mm3 Nucleated RBC % 0.0 (0.0-0.2) % Sodium 138 (137-145) mmol/L Potassium 4.9 (3.4-5.0) mmol/L Chloride 102 (98-107) mmol/L Carbon Dioxide 24 (22-30) mmol/L Anion Gap 12 (4-12) mmol/L BUN 46 H (9-20) mg/dL Creatinine 2.19 H (0.7-1.3) mg/dL Estim Creat Clear Calc 23 ml/min Estimated GFR 29 L (59 - ) Glucose 156 H (65-110) mg/dL Calcium 13.1 H* (8.4-10.2) mg/dL Magnesium 2.1 (1.6-2.3) mg/dL Total Bilirubin 0.9 (0.2-1.3) mg/dL AST 24 (17-59) U/L ALT 20 (6-50) U/L Alkaline Phosphatase 100 (38-126) U/L Total Protein 8.4 H (6.3-8.2) g/dL Albumin 4.7 (3.5-5.1) g/dL <Augustina Motta PA-C - Last Filed: 11/20/25 16:28> Lab Results 11/20/25 Range/Units 19:06 WBC 7.2 (4.5-10.0) K/mm3 RBC 5.28 (4.6-6.20) M/mm3 Hgb 16.9 (14.0-18.0) g/dL Hct 49.0 (42.0-52.0) % MCV 92.8 (80-100) fl MCH 32.0 (26-34) pg MCHC 34.5 (32-36) g/dl RDW 12.5 (11.5-14.5) % Plt Count 169 (150-375) k/mm3 MPV 9.8 (7.4-10.4) fl Immature Gran % (Auto) 0.4 (0-0.5) % Neut % (Auto) 64.1 (45.5-73.1) % Lymph % (Auto) 16.6 L (18.3-44.2) % [place] % (Auto) 14.9 H (2.6-8.5) % Eos % (Auto) 3.3 (0-4.4) % Baso % (Auto) 0.7 (0.2-1.2) % Lymph # (Auto) 1.19 (0.9-3.2) K/mm3 [place] # (Auto) 1.1 H (0.1-0.6) K/mm3 Eos # (Auto) 0.2 (0-0.3) K/mm3 Baso # (Auto) 0.1 (0.0-0.1) K/mm3 Abs Immat Gran (auto) 0.03 (0.00-0.031) K/mm3 Absolute Neuts (auto) 4.6 (1.3-6.7) K/mm3 Absolute Nucleated RBC 0.000 (0.0-0.012) K/mm3 Nucleated RBC % 0.0 (0.0-0.2) % Sodium 138 (137-145) mmol/L Potassium 4.9 (3.4-5.0) mmol/L Chloride 102 (98-107) mmol/L Carbon Dioxide 24 (22-30) mmol/L Anion Gap 12 (4-12) mmol/L BUN 46 H (9-20) mg/dL Creatinine 2.19 H (0.7-1.3) mg/dL Estim Creat Clear Calc 23 ml/min Estimated GFR 29 L (59 - ) Glucose 156 H (65-110) mg/dL Calcium 13.1 H* (8.4-10.2) mg/dL Magnesium 2.1 (1.6-2.3) mg/dL Total Bilirubin 0.9 (0.2-1.3) mg/dL AST 24 (17-59) U/L ALT 20 (6-50) U/L Alkaline Phosphatase 100 (38-126) U/L Total Protein 8.4 H (6.3-8.2) g/dL Albumin 4.7 (3.5-5.1) g/dL <Prabhjot Villarreal MD - Last Filed: 11/20/25 20:09> Discharge Plan Discharge Clinical Impression: Hypercalcemia <Augustina Motta PA-C - Last Filed: 11/20/25 16:28> Patient Disposition: Still a Patient <Augustina Motta PA-C - Last Filed: 11/20/25 16:28> Condition: Stable <Augustina Motta PA-C - Last Filed: 11/20/25 16:28> Patient Language: Mexican <Augustina Motta PA-C - Last Filed: 11/20/25 16:28> Prescriptions: No Action (DME) OneTouch Ultra Test Strip See Rx Instructions .Route Rx Instructions: As directed aspirin,buffd-calcium carb-mag 81 mg tablet 1 tablet PO DAILY omega 5-ctb-elq-fish oil [Fish Oil] 1,000 mg (120 mg-180 mg) capsule 1 cap PO DAILY polyethylene glycol 3350 [Miralax] 17 gram/dose powder 17 g PO DAILY PRN (Reason: constipation) Rx Instructions: 1/2 dose per day if needed acetaminophen [Tylenol Extra Strength] 500 mg tablet 500 mg PO Q6H PRN (Reason: pain) diclofenac sodium 1 % gel 2 g topical DAILY Rx Instructions: apply to single elbow, wrist or hand; for hand includes palm/fingers/back of hand dapagliflozin propanediol [Farxiga] 5 mg tablet 5 mg PO DAILY B-complex with vitamin C Capsule 1 cap PO DAILY atorvastatin 10 mg tablet 10 mg PO .twice weekly Rx Instructions: take on Mon and Tue clopidogrel 75 mg tablet 75 mg PO DAILY ezetimibe 10 mg tablet 10 mg PO DAILY isosorbide mononitrate 30 mg tablet extended release 24 hr 30 mg PO DAILY metoprolol succinate 50 mg tablet extended release 24 hr 50 mg PO DAILY levothyroxine 50 mcg capsule 50 mcg PO DAILY Rx Instructions: take 1/2hr to and hr before breakfast on empty stomach timolol 0.5 % drops 1 drp EACH EYE Q12H metformin 500 mg tablet 500 mg PO BIDWMEAL <Augustina Motta PA-C - Last Filed: 11/20/25 16:28> Follow-up/Referrals: PHYSICIAN NOT ON STAFF,NONSTAFF [Non-Staff] <Augustina Motta PA-C - Last Filed: 11/20/25 16:28> Time of Disposition: 20:08 <Augustina Motta PA-C - Last Filed: 11/20/25 16:28> 20:08 <Prabhjot Villarreal MD - Last Filed: 11/20/25 20:09>
--- NOTE | 2025-11-20 16:26 | ECG_ITS ---
Test Date: 2025-11-20 19:54:03 Measurements Intervals [place] Rate: 66 P: 63 ND: 190 QRS: 62 QRSD: 92 T: 71 QT: 358 QTc: 375 Interpretive Statements SINUS RHYTHM BASELINE ARTIFACT- I, II, III, AVR, AVL, AVF NORMAL ECG Compared to ECG 11/08/2025 14:59:27 HEART RATE HAS INCREASED Electronically Signed On 11-21-2025 09:11:37 [employer]IST by Guillaume Pickard D.O.
[2025-11-20 19:13] LABS: Hematocrit 49.0 % (42.0-52.0); Hemoglobin 16.9 g/dL (14.0-18.0); Immature Granulocyte Percent A 0.4 % (0-0.5); Lymphocytes Absolute Auto 1.19 K/mm3 (0.9-3.2); Mean Corpuscular HGB Conc 34.5 g/dl (32-36); Mean Corpuscular Hemoglobin 32.0 pg (26-34); Mean Corpuscular Volume 92.8 fl (80-100); Nucleated Red Blood Cells Absolute Auto 0.000 K/mm3 (0.0-0.012); Nucleated Red Blood Cells Perc 0.0 % (0.0-0.2); Platelet Count Result 169 k/mm3 (150-375); Red Blood Count 5.28 M/mm3 (4.6-6.20); White Blood Count 7.2 K/mm3 (4.5-10.0)
[2025-11-20 19:25] LABS: Alanine Aminotransferase 20 U/L (6-50); Albumin Level 4.7 g/dL (3.5-5.1); Alkaline Phosphatase 100 U/L (38-126); Anion Gap 12 mmol/L (4-12); Aspartate Amino Transferase 24 U/L (17-59); Bilirubin,Total 0.9 mg/dL (0.2-1.3); Blood Urea Nitrogen 46 mg/dL (9-20); Calcium 13.1 mg/dL (8.4-10.2); Carbon Dioxide 24 mmol/L (22-30); Chloride 102 mmol/L (98-107); Estimated CRCL calculation 23 ml/min; Estimated Glomerular Filt Rate 29; Glucose 156 mg/dL (65-110); Magnesium 2.1 mg/dL (1.6-2.3); Potassium 4.9 mmol/L (3.4-5.0); Sodium 138 mmol/L (137-145); Total Protein 8.4 g/dL (6.3-8.2)
[2025-11-20 19:29] VITALS: BP 124/74; PULSE 63; O2SAT 98
[2025-11-20] MEDS: SODIUM CHLORIDE 0.9% IV 1,000 ML 999 ML IV CONT (20:38)
[2025-11-20] MEDS: PAMIDRONATE DISODIUM 30 MG in DEXTROSE 5% IN WATER 500 ML 125 MG IVPB (20:38)
[2025-11-20] MEDS: SODIUM CHLORIDE 0.9% IV 1,000 ML 150 ML IV CONT (22:23)
[2025-11-20 22:25] VITALS: BP 132/76; PULSE 90; RESP 20; O2SAT 97
--- NOTE | 2025-11-20 22:25 | WPCEDHO ---
ED Hand Off Checklist All vitals saved:yes IV Site documented:yes All med administrations documented:yes Triage Note Triage Note Pt to ED w/ reports of being sent 11/20/25 14:34 by PCP due to abnormal labs. Pt states his calcium was high and his kidney function was low. Pt denies pain or feeling SOB. Pt states he is having trouble ambulating some due to muscle weakness in his legs. Denies currently feeling dizzy but states at times he does feel light headed. Allergies atorvastatin Allergy (Verified 11/20/25 14:33) Muscle Pain lisinopril Allergy (Verified 11/20/25 14:33) Muscle Pain losartan Allergy (Verified 11/20/25 14:33) Muscle Pain niacin (From Niaspan Extended-Release) Allergy (Verified 11/20/25 14:33) Rash Penicillins Allergy (Verified 11/20/25 14:33) Rash empagliflozin (From Jardiance) Adverse Reaction (Intermediate, Verified 11/20/25 14:33) Muscle Pain, Dry Mouth Active Medications including assessments/comments Pamidronate Disodium 30 mg/ (Dextrose) 510 mls @ 125 mls/hr IVPB ONCE ONE Stop: 11/21/25 00:00 Last Admin: 11/20/25 20:38 Dose: 125 mls/hr Documented By: [facility] Infusion/Titration Document 11/20/25 20:38 [facility] (Rec: 11/20/25 20:38 [facility] [id number]) Intake IV Site Peripheral Access Right Forearm Container Volume 510 Waste Amount 0 Dosing Infusion Rate 125 Increase/Decrease Started Elapsed Time Elapsed Time ( 0m minutes) Sodium Chloride (Normal Saline Iv) 1,000 mls @ 150 mls/hr IV CONT .Q6H40M [facility] Last Admin: 11/20/25 22:23 Dose: 150 mls/hr Documented By: [facility] Infusion/Titration Document 11/20/25 22:23 [facility] (Rec: 11/20/25 22:23 [facility] [id number]) Intake IV Site Peripheral Access Right Forearm Container Volume 1,000 Waste Amount 0 Dosing Infusion Rate 150 Cumulative Dose Not Applicable Increase/Decrease Started Elapsed Time Elapsed Time ( 0m minutes) Administered/Completed Medications Discontinued Medications Sodium Chloride (Normal Saline Iv) 1,000 mls @ 999 mls/hr IV CONT .Q1H1M STA Stop: 11/20/25 20:57 Last Infusion: 12/24/25 21:55 Dose: Infused Documented By: Admin: 11/20/25 20:38 Dose: 999 mls/hr Documented By: BLAKE Interventions/Assessments IV / Saline Lock, Insert Start: 11/20/25 13:24 Freq: Status: Active Protocol: Document 11/20/25 20:38 BLAKE (Rec: 11/20/25 20:38 BLAKE [id number]) IV Assessment Peripheral Access Right Forearm IV Catheter Access Initiated IV Insertion Date 11/20/25 IV Insertion Time 20:38 Catheter Gauge 20 IV Site Assessment WNL IV Care and WNL Maintenance Last Vital Signs Temperature 97.8 F 11/20/25 14:34 Pulse Rate 90 11/20/25 22:25 Respiratory Rate 20 11/20/25 22:25 Pulse Oximetry 97 11/20/25 22:25 Blood Pressure 132/76 11/20/25 22:25 Blood Pressure Mean 94 11/20/25 22:25 Blood Pressure Position Sitting 11/20/25 19:29 Oxygen Delivery Room Air 11/20/25 14:34 Weight 68.5 kg 11/20/25 14:34 Last Result - Abnormals Only Lymph % (Auto) 16.6 % (18.3-44.2) L 11/20/25 19:06 [place] % (Auto) 14.9 % (2.6-8.5) H 11/20/25 19:06 [place] # (Auto) 1.1 K/mm3 (0.1-0.6) H 11/20/25 19:06 BUN 46 mg/dL (9-20) H 11/20/25 19:06 Creatinine 2.19 mg/dL (0.7-1.3) H 11/20/25 19:06 Estimated GFR 29 (59-) L 11/20/25 19:06 Glucose 156 mg/dL (65-110) H 11/20/25 19:06 Calcium 13.1 mg/dL (8.4-10.2) H* 11/20/25 19:06 Total Protein 8.4 g/dL (6.3-8.2) H 11/20/25 19:06 Most Recent Suicide Severity Rating Suicide Severity Rating NO RISK INDICATED 11/20/25 14:34
[2025-11-20 22:42] VITALS: BP 150/76; PULSE 84; RESP 17; TEMP 36.7; O2SAT 100
[2025-11-20 22:43] VITALS: BMI 21.8
--- NOTE | 2025-11-20 23:09 | ADMGEN ---
This patient, Madhuri Sanders, was admitted to Medical Room 249-01. Patient/family oriented to hospital policies and general routines including ID bracelet, bed and alarms, visiting hours, pain management, procedures, bathroom and other care routines, personal items, smoking policy, room service/diet, and visiting hours. Information on how to activate the Rapid Response Team has been discussed. Patient/Family are encouraged to report perceived risks to care and to ask questions if they do not understand what they are told or what they should do.
--- NOTE | 2025-11-21 01:45 | PM.IMHP2 ---
H&P: HPI History of Present Illness Date/Time: 11/20/25 23:25 Chief Complaint: High calcium Narrative: 85-year-old male with a past medical history of chronic kidney disease stage III, essential hypertension, coronary artery disease with prior stent, type 2 diabetes mellitus and known chronic hypercalcemia with recurrent who presented to the ER with recurrent hypercalcemia. The patient reports that he had follow-up at Dr. Corky gallardo office on the for his chronic kidney disease and hypercalcemia. He was recommended to come back into the ER on the but declined to do so. So he had outpatient labs performed which demonstrated recurrent hypercalcemia with a calcium of 13.4 up from prior values of 10 during his last hospitalization on the . His calcium did trend back up to 12.9 on the . With his elevated calcium he has noticed that he is sleeping more than usual and is been more unsteady on his gait with worsening tremor. His reported that he is still having difficulty completing simple tasks in feels that he is confused. At the time my evaluation the patient is alert oriented x4 but he does have some difficulty with word finding and his responses are somewhat slowed. The computer trainer is concerned the patient may have resorptive hypercalcemia or possibly recurrence of renal cell carcinoma but renal ultrasound did not demonstrate any evidence of metastases. Nephrology recommended that the patient come and for bisphosphonate infusion and to get her renal scan to further evaluate possible causes for his recurrent hypercalcemia. He reports that he could becomes more constipated whenever his calcium is up. He denies any nausea or vomiting reports he has a good appetite. He does have BPH but feels like he has been emptying his bladder adequately. He does have chronic kidney disease with baseline creatinine around 2-2.2. Review of Systems Review of Systems: 12 systems were reviewed with pertinent positives and negatives per HPI. Except as documented in the HPI, all other systems were reviewed and are negative. [facility] Past Medical History Medical History (Updated 11/21/25 @ 03:34 by Talya Chambers DO) Depression Coronary artery disease History of myocardial infarction Type 2 diabetes mellitus with unspecified complications Essential (primary) hypertension Surgical History Surgical History 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 H/O cataract removal with insertion of prosthetic lens left eye 04/04/24, right eye 03/19/24 Family History Family History (Updated 11/21/25 @ 00:28 by Vanessa Isaac RN) Other Diabetes mellitus Social History Social History (Updated 11/21/25 @ 03:12 by Talya Chambers DO) Social History: The patient lives with his of 12 years. Code status: DNR/DNI per patient request Surrogate decision maker: Smoking status: Never smoker Second hand tobacco smoke exposure: No Alcohol intake: current Drinks per week: 1 Substance use: never Substance use type: does not use Lack of Transportation: No Lack of Food: Never True Current Housing: I Have Housing Concerned About Future Housing: No Difficulty Paying Gas/Electric Bills: No Difficulty Paying for Meds: No Currently Unemployed: No Education: Bachelor's Degree Difficulty w/ Childcare or Family Care: No Gender identity (if verbalized by the patient): Male Spiritual care concerns: No Meds Home Medications and Allergies Home Medications ?Medication ?Instructions ?Recorded ?Confirmed ?Type acetaminophen 500 mg tablet 500 mg PO Q6H PRN pain 05/10/23 11/20/25 History (Tylenol Extra Strength) aspirin,buffered (calcium 1 tablet PO DAILY 05/10/23 11/20/25 History carbonate-magnesium) 81 mg tablet blood sugar diagnostic (OneTouch 05/10/23 11/20/25 History Ultra Test strips) omega 2-ait-rcn-fish oil 1,000 mg 1 cap PO DAILY 05/10/23 11/20/25 History (120 mg-180 mg) capsule (Fish Oil) polyethylene glycol 3350 17 17 g PO DAILY PRN constipation 05/10/23 11/20/25 History gram/dose oral powder (Miralax) diclofenac sodium 1 % topical gel 2 g topical DAILY 11/08/23 11/20/25 History B-complex with vitamin C 1 cap PO DAILY 05/15/24 11/20/25 History dapagliflozin propanediol 5 mg 5 mg PO DAILY 05/15/24 11/20/25 History tablet (Farxiga) atorvastatin 10 mg tablet 10 mg PO .twice weekly 11/13/24 11/20/25 History clopidogrel 75 mg tablet 75 mg PO DAILY 11/13/24 11/20/25 History ezetimibe 10 mg tablet 10 mg PO DAILY 11/13/24 11/20/25 History isosorbide mononitrate 30 mg 30 mg PO DAILY 11/13/24 11/20/25 History tablet,extended release 24 hr metoprolol succinate 50 mg 50 mg PO DAILY 11/13/24 11/20/25 History tablet,extended release 24 hr levothyroxine 50 mcg capsule 50 mcg PO DAILY 05/14/25 11/20/25 History metformin 500 mg tablet 500 mg PO BIDWMEAL 05/14/25 11/20/25 History timolol 0.5 % eye drops 1 drp EACH EYE Q12H 05/14/25 11/20/25 History Allergies Allergy/AdvReac Type Severity Reaction Status Date / Time atorvastatin Allergy Muscle Pain Verified 11/21/25 00:26 lisinopril Allergy Muscle Pain Verified 11/21/25 00:26 losartan Allergy Muscle Pain Verified 11/21/25 00:26 niacin (From Niaspan Allergy Rash Verified 11/21/25 00:26 Extended-Release) Penicillins Allergy Rash Verified 11/21/25 00:26 empagliflozin (From AdvReac Intermediate Muscle Verified 11/21/25 00:26 Jardiance) Pain, Dry Mouth Vital Signs Vital Signs - 24 hr 11/20/25 14:34 11/20/25 19:29 11/20/25 22:25 Temperature 97.8 F Pulse Rate 67 63 90 Respiratory Rate 15 20 Blood Pressure 126/59 L 124/74 132/76 Pulse Oximetry 97 98 97 Oxygen Delivery Room Air 11/20/25 22:42 Temperature 98.0 F Pulse Rate 84 Respiratory Rate 17 Blood Pressure 150/76 H Pulse Oximetry 100 Oxygen Delivery Exam Narrative: Weight 67 kg BMI 21.8 Const: Other: Well-developed, well-nourished, appears stated age HENMT: Other: Mucous membranes are tacky, no oral pharyngeal erythema, no scleral icterus, bilateral lens implants noted Neck: Other: No JVD, no lymphadenopathy Resp: Other: Clear to auscultation bilaterally, no increased work of breathing Cardio: Other: Regular rate, regular rhythm, 2+ bilateral radial pedal pulses GI: Other: Soft, nontender, nondistended, positive bowel sounds Skin: Other: Mild pallor, non jaundice Neuro: Other: Alert orient x4, speech is clear, no facial asymmetry, speech is clear but slow, intermittent difficulty with word-finding, mild tremor otherwise no localizing neurologic deficits noted Extrem: Other: No clubbing, cyanosis or edema, 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 Psych: Other: Appropriate mood and affect, pleasant and cooperative, judgment and insight intact Results Labs Labs: Laboratory Tests 11/20/25 19:06 11/20/25 19:06 11/20/25 11/21/25 19:06 02:01 WBC 7.2 RBC 5.28 Hgb 16.9 Hct 49.0 MCV 92.8 MCH 32.0 MCHC 34.5 RDW 12.5 Plt Count 169 MPV 9.8 Immature Gran % (Auto) 0.4 Neut % (Auto) 64.1 Lymph % (Auto) 16.6 L [place] % (Auto) 14.9 H Eos % (Auto) 3.3 Baso % (Auto) 0.7 Lymph # (Auto) 1.19 [place] # (Auto) 1.1 H Eos # (Auto) 0.2 Baso # (Auto) 0.1 Abs Immat Gran (auto) 0.03 Absolute Neuts (auto) 4.6 Absolute Nucleated RBC 0.000 Nucleated RBC % 0.0 Sodium 138 Potassium 4.9 Chloride 102 Carbon Dioxide 24 Anion Gap 12 BUN 46 H Creatinine 2.19 H Estim Creat Clear Calc 23 Estimated GFR 29 L Glucose 156 H Calcium 13.1 H* 11.2 H Magnesium 2.1 Total Bilirubin 0.9 AST 24 ALT 20 Alkaline Phosphatase 100 Total Protein 8.4 H Albumin 4.7 Quality VTE Prophylaxis VTE prophylaxis: pharmacologic ordered (Lovenox 30 mg subQ daily) Assessment and Plan Assessment and plan (1) Hypercalcemia: Code(s): E83.52 - Hypercalcemia Status: Acute (2) Secondary hyperparathyroidism, not elsewhere classified: Code(s): E21.1 - Secondary hyperparathyroidism, not elsewhere classified Status: Acute (3) Stage 3b chronic kidney disease: Code(s): N18.32 - Chronic kidney disease, stage 3b Status: Acute (4) Essential (primary) hypertension: Code(s): I10 - Essential (primary) hypertension Status: Chronic (5) Constipation: Qualifiers: Constipation type: unspecified constipation type Qualified Code(s): K59.00 - Constipation, unspecified Code(s): K59.00 - Constipation, unspecified Status: Acute (6) Type 2 diabetes mellitus with unspecified complications: Code(s): E11.8 - Type 2 diabetes mellitus with unspecified complications Status: Chronic Plan Patient has recurrent hypercalcemia secondary to secondary hyperparathyroidism. Patient has been started on bisphosphonate infusion. Repeat calcium level has improved. Will continue IV fluid hydration. Patient does have chronic kidney disease in creatinine is stable. Patient will be placed on a low-protein diet. Will repeat electrolyte panel in calcium level in a.m.. Will await further recommendations from of Neurology. Will monitor strict I&O's. Will avoid nephrotoxic medications. Patient's blood pressures are stable. Will resume home metoprolol and Imdur. Will continue home Plavix given patient's history of coronary artery disease and continue statin therapy. Patient had a normal TSH 10 days ago. Will continue home levothyroxine Will hold the patient's home Farxiga and metformin. Will place on low-dose sliding scale insulin with Accu-Cheks a.c. HS. MEDICAL DECISION MAKING NARRATIVE -Spoke with the ED provider in detail regarding patient's evaluation, workup and management -Patient seen and examined at bedside -Collaborated with patient's nurse at the bedside in detail and addressed all concerns -Labs, electrolytes, radiology, investigations and test results personally reviewed and interpreted unless otherwise specified -ED/Consult/Nursing/Ancilliary notes on the chart reviewed and appreciated -applicable past medical records and labs were reviewed and unless stated otherwise. -Spoke with patient at bedside and diagnosis, plan of care was discussed and questions answered. Hospitalist [facility] Advance Care Plan I have confirmed that the patient's Advanced Care Plan is present, code status is documented, or surrogate decision maker is listed in patient medical record.: Yes Medication Reconciliation I have utilized all available resources to obtain, update and review the patients current medications (includes all prescriptions, OTC, herbals, cannabis, and nutritional supplements).: Yes
[2025-11-21 02:17] LABS: Calcium 11.2 mg/dL (8.4-10.2)
[2025-11-21] MEDS: SODIUM CHLORIDE 0.9% IV 1,000 ML 150 ML IV CONT (02:35)
[2025-11-21 04:16] VITALS: BP 163/78; PULSE 75; RESP 17; TEMP 36.6; O2SAT 96
[2025-11-21] MEDS: ACETAMINOPHEN 500 MG TABLET PO (04:17)
[2025-11-21] MEDS: LEVOTHYROXINE SODIUM 50 MCG TABLET PO (05:44)
[2025-11-21 05:57] VITALS: BP 143/86
--- NOTE | 2025-11-21 07:29 | P.PNIM_ITS ---
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 Patient has been started on bisphosphonate infusion. Repeat calcium level has improved. Will continue IV fluid hydration. Neph consulted: calcitonin injection & bone scan ordered (2) Secondary hyperparathyroidism, not elsewhere classified: Code(s): E21.1 - Secondary hyperparathyroidism, not elsewhere classified Status: Acute Assessment and Plan: See above (3) Stage 3b chronic kidney disease: Code(s): N18.32 - Chronic kidney disease, stage 3b Status: Acute Assessment and Plan: Patient does have CKD & creatinine is at her baseline this AM. Patient will be placed on a low-protein diet. Will await further recommendations from of Nephrology. Will monitor strict I&O's. Will avoid nephrotoxic medications. Trend labs daily (4) Essential (primary) hypertension: Code(s): I10 - Essential (primary) hypertension Status: Chronic Assessment and Plan: Patient's blood pressures are stable. Will resume home metoprolol and Imdur. Will continue home Plavix given patient's history of coronary artery disease and continue statin therapy. (5) Constipation: Qualifiers: Constipation type: unspecified constipation type Qualified Code(s): K59.00 - Constipation, unspecified Code(s): K59.00 - Constipation, unspecified Status: Acute Assessment and Plan: Last BM uncertain but thinks around 11/17? Miralax ordered (6) Type 2 diabetes mellitus with unspecified complications: Code(s): E11.8 - Type 2 diabetes mellitus with unspecified complications Status: Chronic Assessment and Plan: Will hold the patient's home Farxiga and metformin. Will place on low-dose sliding scale insulin with Accu-Cheks a.c. HS. Plan Pending bone scan, trend labs, neph recs Medical Record Review I have reviewed the following patient records and this information was taken into consideration when formulating the assessment and plan.: previous labs Time Spent With Patient Time with patient: 25 - 35 minutes Subjective Date/time seen: 11/21/25 0855 Interval history: Pt sitting up in his chair comfortably having just eaten breakfast upon my arrival. Pt reports mild fatigue and confusion but is oriented x4, he states he gets this way when his calcium is elevated. Reports that he has been able to ambulate to the restroom with no issue. Review of Systems Review of Systems: 12 systems were reviewed with pertinent positives and negatives per HPI. Except as documented in the HPI, all other systems were reviewed and are negative. All systems reviewed & are unremarkable except as noted in HPI and below Exam Narrative: Weight 67 kg BMI 21.8 Const: General: comfortable and no acute distress Other: , male, elderly, nontoxic appearance HENMT: Face/Nose/Sinus: Normal nares present Mouth: Yes moist mucous membranes Other: Mucous membranes are tacky, no oral pharyngeal erythema, no scleral icterus, bilateral lens implants noted Eyes: General: appearance normal, both eyes and all related structures Sclera: sclerae normal Pupils: Equal, round and reactive pupils present EOM: EOMs intact bilaterally Neck: Other: No JVD, no lymphadenopathy Resp: Effort & Inspection: normal respiratory effort Auscultation: clear to auscultation bilaterally Other: Clear to auscultation bilaterally, no increased work of breathing Cardio: Rate: regular rate Rhythm: regular rhythm Other: S1-S2 present without murmur, rub, ectopy GI: Other: Abdomen soft, nondistended, nontender. Normoactive bowel sounds in all quadrants. 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 Psych: Mental Status: mental status grossly normal Affect: normal affect Other: Good insight and judgment, pleasant Objective Data Vital Signs Vital Signs: Vital Signs - 24 hr 11/20/25 14:34 11/20/25 19:29 11/20/25 22:25 Temperature 97.8 F Pulse Rate 67 63 90 Respiratory Rate 15 20 Blood Pressure 126/59 L 124/74 132/76 Pulse Oximetry 97 98 97 Oxygen Delivery Room Air 11/20/25 22:42 11/21/25 04:16 11/21/25 05:57 Temperature 98.0 F 97.9 F Pulse Rate 84 75 Respiratory Rate 17 17 Blood Pressure 150/76 H 163/78 H 143/86 H Pulse Oximetry 100 96 Oxygen Delivery Intake/Output Intake/Output: Intake & Output 11/18/25 11/19/25 11/20/25 11/21/25 23:59 23:59 23:59 23:59 Intake Total 1000 780 Balance 1000 780 Meds/Results Medications: Active Medications Generic Name Dose Route Start Last Admin Trade Name Freq PRN Reason Stop Dose Admin Acetaminophen 500 mg 11/21/25 02:50 11/21/25 04:17 Acetaminophen 500 Mg Tablet PO 500 mg Q6H PRN Administration pain 1-3 or fever Aspirin 81 mg 11/21/25 09:00 Aspirin 81 Mg Enteric Tablet PO QAM [facility] Clopidogrel Bisulfate 75 mg 11/21/25 09:00 Clopidogrel Bisulfate 75 Mg Tablet PO DAILY [facility] Dextrose 12.5 gm 11/21/25 03:38 Dextrose 50% 25 Gm/50 Ml Syringe IV PUSH PRN PRN Hypoglycemia Protocol Diclofenac Sodium 1 applic 11/21/25 09:00 Diclofenac Sodium 1% 100 Gm Gel (*Bkc) TOPICAL DAILY [facility] Ezetimibe 10 mg 11/21/25 09:00 Ezetimibe 10 Mg Tablet PO DAILY [facility] Enoxaparin Sodium 30 mg 11/21/25 09:00 Enoxaparin 30 Mg/0.3 Ml Syringe SUB-Q DAILY [facility] Fish Oil 1 gm 11/21/25 09:00 [place] 3 Polyunsat Fatty Acids 1 Gm Cap PO DAILY [place] Glucagon 1 mg 11/21/25 03:38 Glucagon For Inj 1 Mg Vial IM PRN PRN Hypoglycemia Protocol Glucose 15 gm 11/21/25 03:38 Glucose Oral Gel 15 Gm Of Glucse In 37.5 Gm Tube PO PRN PRN Hypoglycemia Protocol Sodium Chloride 1,000 mls @ 150 mls/hr 11/20/25 20:35 11/21/25 02:35 Normal Saline Iv IV CONT 150 mls/hr .Q6H40M [place] Administration Dextrose 1,000 mls @ 100 mls/hr 11/21/25 03:38 Dextrose 5% 1,000 Ml IVPB PRN PRN Hypoglycemia Protocol Insulin Aspart 2 - 5 units 11/21/25 08:00 Insulin Aspart (*Bkc) 100 Units/Ml SUB-Q TIDWM [facility] Protocol Isosorbide Mononitrate 30 mg 11/21/25 09:00 Isosorbide Mononitrate 30 Mg Tab.Er.24h PO DAILY [facility] Levothyroxine Sodium 50 mcg 11/21/25 06:30 11/21/25 05:44 Levothyroxine Sodium 50 Mcg Tablet PO 50 mcg DAILY@0630 [facility] Administration Metoprolol Succinate 50 mg 11/21/25 09:00 Metoprolol Succinate Ext Rel 50 Mg Tabcr PO DAILY [facility] Non-Formulary Medication 5 mg 11/21/25 09:00 Dapagliflozin Propanediol [Farxiga] PO 12/21/25 08:59 DAILY [facility] Polyethylene Glycol 17 gm 11/21/25 09:00 Polyethylene Glycol 3350 17 Gm Powd.Pack PO DAILY [facility] Timolol Maleate 1 drop 11/21/25 09:00 Timolol Maleate 0.5% Op Soln 5 Ml Bottle EACH EYE Q12HR [facility] Labs Labs: Laboratory Results - last 24 hr 11/20/25 11/21/25 19:06 02:01 WBC 7.2 RBC 5.28 Hgb 16.9 Hct 49.0 MCV 92.8 MCH 32.0 MCHC 34.5 RDW 12.5 Plt Count 169 MPV 9.8 Immature Gran % (Auto) 0.4 Neut % (Auto) 64.1 Lymph % (Auto) 16.6 L [place] % (Auto) 14.9 H Eos % (Auto) 3.3 Baso % (Auto) 0.7 Lymph # (Auto) 1.19 [place] # (Auto) 1.1 H Eos # (Auto) 0.2 Baso # (Auto) 0.1 Abs Immat Gran (auto) 0.03 Absolute Neuts (auto) 4.6 Absolute Nucleated RBC 0.000 Nucleated RBC % 0.0 Sodium 138 Potassium 4.9 Chloride 102 Carbon Dioxide 24 Anion Gap 12 BUN 46 H Creatinine 2.19 H Estim Creat Clear Calc 23 Estimated GFR 29 L Glucose 156 H Calcium 13.1 H* 11.2 H Magnesium 2.1 Total Bilirubin 0.9 AST 24 ALT 20 Alkaline Phosphatase 100 Total Protein 8.4 H Albumin 4.7 Quality VTE Prophylaxis VTE prophylaxis: pharmacologic ordered
[2025-11-21 07:30] LABS: Alanine Aminotransferase 15 U/L (6-50); Albumin Level 3.3 g/dL (3.5-5.1); Alkaline Phosphatase 90 U/L (38-126); Anion Gap 9 mmol/L (4-12); Aspartate Amino Transferase 15 U/L (17-59); Bilirubin,Total 0.6 mg/dL (0.2-1.3); Blood Urea Nitrogen 37 mg/dL (9-20); Calcium 10.5 mg/dL (8.4-10.2); Carbon Dioxide 17 mmol/L (22-30); Chloride 109 mmol/L (98-107); Estimated CRCL calculation 26 ml/min; Estimated Glomerular Filt Rate 35; Glucose 163 mg/dL (65-110); Potassium 3.9 mmol/L (3.4-5.0); Sodium 135 mmol/L (137-145); Total Protein 6.1 g/dL (6.3-8.2)
[2025-11-21] MEDS: SODIUM CHLORIDE 0.9% IV 1,000 ML 75 ML IV CONT ×2 (09:32→21:59)
[2025-11-21 09:33] VITALS: PULSE 75
[2025-11-21] MEDS: CLOPIDOGREL BISULFATE 75 MG TABLET PO (09:33)
[2025-11-21] MEDS: EZETIMIBE 10 MG TABLET PO (09:33)
[2025-11-21] MEDS: ASPIRIN 81 MG ENTERIC TABLET PO (09:33)
[2025-11-21] MEDS: OMEGA 3 POLYUNSAT FATTY ACIDS 1 GM CAP PO (09:33)
[2025-11-21] MEDS: METOPROLOL SUCCINATE EXT REL 50 MG TABCR PO (09:33)
[2025-11-21] MEDS: ISOSORBIDE MONONITRATE 30 MG TAB.ER.24H PO (09:33)
[2025-11-21] MEDS: ENOXAPARIN 30 MG/0.3 ML SYRINGE SUB-Q (09:35)
[2025-11-21] MEDS: CALCITONIN SALMON INJ 400 UNITS/2 ML VIAL 280 UNITS SUB-Q ×2 (09:35→21:55)
[2025-11-21] MEDS: DICLOFENAC SODIUM 1% 100 GM GEL (*BKC) 1 APPLIC TOPICAL (09:36)
[2025-11-21] MEDS: TIMOLOL MALEATE 0.5% OP SOLN 5 ML BOTTLE 1 DROP EACH EYE ×2 (09:36→21:55)
--- NOTE | 2025-11-21 10:32 | P.CONNP_ITS ---
Assessment and Plan Assessment and plan (1) Acute kidney injury: Code(s): N17.9 - Acute kidney failure, unspecified Status: Resolved Assessment and Plan: * already resolving * admission creatinine slightly above baseline (2.19mg/dL) * outpatient labs prior to admission demonstrated a creatinine of 2.24mg/dl (on ) * possibly due to: * hypercalcemia? * prerenal factors? * other? * re-check urine studies * renal ultrasound (on 11/20) noted * already better with current interventions * follow trend of repeat labs and UOP (2) Stage 3b chronic kidney disease: Code(s): N18.32 - Chronic kidney disease, stage 3b Status: Acute Assessment and Plan: * baseline creatinine runs ~ 1.6 - 2.0mg/dl for the last couple of years * secondary to hypertension, diabetes, vascular disease, and age-related change * follows with Dr. Hunt for ongoing management of CKD (3) Hypercalcemia: Code(s): E83.52 - Hypercalcemia Status: Acute Assessment and Plan: * as noted by outpatient labs and labs on admission (calcium 13.1mg/dL) * this is his second occurrence: - previous admission on 11/08 -- calcium 13.3mg/dL -- discharge calcium level 11.3mg/dL (went as low as 10.9mg/dL) * improvement noted since admission: * calcium down to 10.5mg/dL today * s/p IV pamidronate (in ER) and started on IVFs * SQ calcitonin x 4 doses * evaluation to date (including testing from previous hospitalization): * PTH level low argues against primary hyperparathyroidism * SPEP & UPEP negative * serum/urine immunofixation with no monoclonality detected * PTHrp low * TESSA level normal * Vitamin D (25-OH) normal * 1,25 Vitamin D slightly elevated - possible absorptive hypercalcemia from GI tract? * skeletal survey negative for lytic bone lesions * check bone scan * recheck urine studies including urine calcium/creatinine ratio * check CXR * follow trend of repeat calcium levels (4) Confusion: Code(s): R41.0 - Disorientation, unspecified Status: Acute Assessment and Plan: * clinically better * as noted by history * suspect secondary to hypercalcemia (as he had this symptom prior to last hospitalization for elevated calcium level) * follow mentation (5) Essential (primary) hypertension: Code(s): I10 - Essential (primary) hypertension Status: Chronic Assessment and Plan: * reasonable control at this time * follow trend of hemodynamics (6) Type 2 diabetes mellitus with unspecified complications: Code(s): E11.8 - Type 2 diabetes mellitus with unspecified complications Status: Chronic Assessment and Plan: * follow accu-cheks * glycemic control per hospitalist I will continue to follow the patient with you while he remains hospitalized and make further recommendations as deemed necessary. Thank you for allowing me to participate in the care of this patient. L History of Present Illness Reason for Consult Consult date: 11/21/25 Reason for consult: acute renal failure (on chronic kidney disease) and Other (hypercalemia) Chief Complaint Chief complaint: Hypercalcemia History of Present Illness Narrative: The patient is an 85-year-old male with a past medical history as outlined below who presented to [facility] Emergency Room due to abnormal outpatient blood work. The patient saw Dr. Hunt in the office on 11/18 for ongoing management of his chronic kidney disease and recent issues with hypercalcemia. Since his last hospitalization, outpatient labs showed a slow and steady increase in his calcium level and it was recommended he come back to the ER on that day for further interventions regarding his hypercalcemia but he declined to do so. He subsequently had repeat labs done that day which demonstrated a further rise in his calcium level up to 13.4mg/dL. Along with his noted rising calcium level, he has also noted increased fatigue and sleeping more than usual along with being more unsteady in his gait with worsening tremor. His reported he is also having difficulty completing simple tasks and he himself feels confused at times. Given these constellation of symptoms in association with his hypercalcemia, he presented to the ER for further assessment. Workup and evaluation emergency room demonstrated the patient to be hemodynamically stable and afebrile. routine testing demonstrated labs consistent with his known history of hypercalcemia with serum calcium level of 13.1 but no other critical electrolyte abnormalities although his creatinine was slightly higher than his baseline at 2.19 mg/dL. His CBC was unremarkable although his hemoglobin was slightly elevated at 16.9 with a hematocrit of 49.0. For treatment of his hypercalcemia, he received a dose of IV pamidronate and was initiated on IV fluids and was subsequently admitted to the hospital for further evaluation and therapy. Since his admission, his repeat labs show improvement in his calcium level to 10.5 mg/dL as well as improvement in his renal function with his creatinine down to 1.87 mg/dL. Renal consultation was requested due to his acute kidney injury/acute renal failure on top of his baseline chronic kidney disease in association with hypercalcemia. The patient normally follows with Dr. Yovany Hunt for management of his chronic kidney disease and by his labs done about 7 months ago, his renal function was well within his baseline status. More importantly, these outpatient labs also showed a normal calcium level as well. His baseline creatinine runs around 1.6 - 2.0 mg/dL although his outpatient labs showed a creatinine of 2.24 mg/dL; his admission labs show his renal function/creatinine at around 2.19 mg/dL. His most recent labs done this morning demonstrate improvement in both his calcium as well as his serum creatinine as noted above. Currently, at the time my evaluation, he appears to be in no acute distress. Review of Systems 2 Review of Systems: As per HPI. [facility] Past Medical History Medical History (Updated 11/21/25 @ 15:25 by Augustine Poole MD) Depression Coronary artery disease History of myocardial infarction Type 2 diabetes mellitus with unspecified complications Essential (primary) hypertension Surgical History Surgical History 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 H/O cataract removal with insertion of prosthetic lens left eye 04/04/24, right eye 03/19/24 Family History Family History (Updated 11/21/25 @ 00:28 by Vanessa Isaac RN) Other Diabetes mellitus Social History Social History (Updated 11/21/25 @ 03:12 by Talya Chambers DO) Social History: The patient lives with his of 12 years. Code status: DNR/DNI per patient request Surrogate decision maker: Smoking status: Never smoker Second hand tobacco smoke exposure: No Alcohol intake: current Drinks per week: 1 Substance use: never Substance use type: does not use Lack of Transportation: No Lack of Food: Never True Current Housing: I Have Housing Concerned About Future Housing: No Difficulty Paying Gas/Electric Bills: No Difficulty Paying for Meds: No Currently Unemployed: No Education: Bachelor's Degree Difficulty w/ Childcare or Family Care: No Gender identity (if verbalized by the patient): Male Spiritual care concerns: No Meds Home Medications and Allergies Home Medications ?Medication ?Instructions ?Recorded ?Confirmed ?Type acetaminophen 500 mg tablet 500 mg PO Q6H PRN pain 11/20/25 History (Tylenol Extra Strength) aspirin,buffered (calcium 1 tablet PO DAILY 05/10/23 1 01/21/25 History carbonate-magnesium) 81 mg tablet blood sugar diagnostic (OneTouch 05/10/23 11/20/25 [employer] Ultra Test strips) omega 1-hie-jjq-fish oil 1,000 mg 1 cap PO DAILY 05/1011/20/25 History (120 mg-180 mg) capsule (Fish Oil) polyethylene glycol 3350 17 17 g PO DAILY PRN constipa tion 05/10/23 11/20/25 History gram/dose oral powder (Miralax) diclofenac sodium 1 % topical gel 2 g topical DAILY 11/20/25 History B-complex with vitamin C 1 cap PO DAILY 05/15/2410/29 History dapagliflozin propanediol 5 mg 5 mg PO DAILY 05/15/24 11/20/25 History tablet (Farxiga) atorvastatin 10 mg tablet 10 mg PO .twice weekly 11/1311/20/25 History clopidogrel 75 mg tablet 75 mg PO DAILY 11/13/2410/29 History ezetimibe 10 mg tablet 10 mg PO DAILY 11/13/2410/29 History isosorbide mononitrate 30 mg 30 mg PO DAILY 11/13/24 1 01/21/25 History tablet,extended release 24 hr metoprolol succinate 50 mg 50 mg PO DAILY 11/13/24 History tablet,extended release 24 hr levothyroxine 50 mcg capsule 50 mcg PO DAILY 05/14/25 11/20/25 History metformin 500 mg tablet 500 mg PO BIDWMEAL 05/14/25 11/20/25 History timolol 0.5 % eye drops 1 drp EACH EYE Q12H 05/14/25 11/20/25 History Allergies Allergy/AdvReac Type Severity Reaction Status Date / Time atorvastatin Allergy Muscle Pain Verified 11/21/25 00:26 lisinopril Allergy Muscle Pain Verified 11/21/25 00:26 losartan Allergy Muscle Pain Verified 11/21/25 00:26 niacin (From Niaspan Allergy Rash Verified 11/21/25 00:26 Extended-Release) Penicillins Allergy Rash Verified 11/21/25 00:26 empagliflozin (From AdvReac Intermediate Muscle Verified 11/21/25 00:26 Jardiance) Pain, Dry Mouth Vital Signs Vital Signs Temp Pulse Resp BP Pulse Ox O2 Del Method 11/21/25 10:30 97.2 F L 58 L 16 131/78 97 11/21/25 09:33 75 11/21/25 05:57 143/86 H 11/21/25 04:16 97.9 F 75 17 163/78 H 96 11/20/25 22:42 98.0 F 84 17 150/76 H 100 11/20/25 22:25 90 20 132/76 97 11/20/25 19:29 63 124/74 98 Exam 2 Narrative: GENERAL APPEARANCE: well developed well nourished male in no acute distress HEENT: normocephalic, atraumatic, normal conjunctiva and sclera, nares patient NECK: no lymphadenopathy, thyromegaly, or JVD MOUTH: normal lips, teeth, and gums CARDIOVASCULAR: RRR, normal S1 and S2, no rub RESPIRATORY: clear to auscultation bilaterally ABDOMEN: soft, nontender, nondistended, positive bowel sounds present EXTREMITIES: no evidence of cyanosis, clubbing, or edema NEUROLOGICAL: alert and oriented x 3; CN II - XII intact bilaterally; no focal deficits noted Results Lab Results 11/20/25 19:06 11/21/25 06:59 Lab results: Most recent lab results Calcium 10.5 mg/dL (8.4-10.2) H 11/21/25 06:59 Magnesium 2.1 mg/dL (1.6-2.3) 11/20/25 19:06
[2025-11-21 14:00] VITALS: BP 131/78; PULSE 58; RESP 16; TEMP 36.2; O2SAT 97
[2025-11-21] MEDS: INSULIN ASPART (*BKC) 100 UNITS/ML SUB-Q (16:52)
[2025-11-21 18:09] LABS: Total Protein Urine Random 19 mg/dL; Ur Ttl Prot Creatinine Ratio 0.96 mg/mg (0-0.20)
[2025-11-21 22:00] VITALS: BP 132/68; PULSE 58; RESP 18; TEMP 36.3; O2SAT 98
[2025-11-22 05:04] LABS: Hematocrit 41.7 % (42.0-52.0); Hemoglobin 14.5 g/dL (14.0-18.0); Immature Granulocyte Percent A 0.4 % (0-0.5); Lymphocytes Absolute Auto 0.83 K/mm3 (0.9-3.2); Mean Corpuscular HGB Conc 34.8 g/dl (32-36); Mean Corpuscular Hemoglobin 32.3 pg (26-34); Mean Corpuscular Volume 92.9 fl (80-100); Nucleated Red Blood Cells Absolute Auto 0.000 K/mm3 (0.0-0.012); Nucleated Red Blood Cells Perc 0.0 % (0.0-0.2); Platelet Count Result 156 k/mm3 (150-375); Red Blood Count 4.49 M/mm3 (4.6-6.20); White Blood Count 5.6 K/mm3 (4.5-10.0)
[2025-11-22 05:10] LABS: Albumin Level 3.6 g/dL (3.5-5.1); Anion Gap 8 mmol/L (4-12); Blood Urea Nitrogen 34 mg/dL (9-20); Calcium 11.2 mg/dL (8.4-10.2); Carbon Dioxide 20 mmol/L (22-30); Chloride 108 mmol/L (98-107); Estimated CRCL calculation 23 ml/min; Estimated Glomerular Filt Rate 30; Glucose 183 mg/dL (65-110); Potassium 4.2 mmol/L (3.4-5.0); Sodium 136 mmol/L (137-145)
[2025-11-22 05:29] LABS: Thyroid Stimulating Hormone Reflex 1.820 uIU/mL (0.465-4.68)
[2025-11-22] MEDS: LEVOTHYROXINE SODIUM 50 MCG TABLET PO (06:04)
[2025-11-22 07:00] VITALS: BP 159/71
--- NOTE | 2025-11-22 07:39 | PM.IMPN2 ---
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 Patient has been started on bisphosphonate infusion. Repeat calcium level has improved. Will continue IV fluid hydration. Neph consulted: Calcitonin injections, bone scan, CXR, and repeat urine studies ordered Continue to trend labs, 11.2 today CXR NAD (2) Secondary hyperparathyroidism, not elsewhere classified: Code(s): E21.1 - Secondary hyperparathyroidism, not elsewhere classified Status: Acute Assessment and Plan: See above (3) Stage 3b chronic kidney disease: Code(s): N18.32 - Chronic kidney disease, stage 3b Status: Acute Assessment and Plan: Patient does have CKD & creatinine is at her baseline this AM. Patient will be placed on a low-protein diet. Will await further recommendations from of Nephrology. Will monitor strict I&O's. Will avoid nephrotoxic medications. Trend labs daily Neph following (4) Essential (primary) hypertension: Code(s): I10 - Essential (primary) hypertension Status: Chronic Assessment and Plan: Patient's blood pressures are stable. Will resume home metoprolol and Imdur. Will continue home Plavix given patient's history of coronary artery disease and continue statin therapy. (5) Constipation: Qualifiers: Constipation type: unspecified constipation type Qualified Code(s): K59.00 - Constipation, unspecified Code(s): K59.00 - Constipation, unspecified Status: Acute Assessment and Plan: Last BM uncertain but thinks around 11/17? Miralax ordered BM x3 on 11/21 (6) Type 2 diabetes mellitus with unspecified complications: Code(s): E11.8 - Type 2 diabetes mellitus with unspecified complications Status: Chronic Assessment and Plan: Will hold the patient's home Farxiga and metformin. Will place on low-dose sliding scale insulin with Accu-Cheks a.c. HS. Plan Pending bone scan & urine. Trend labs, neph recs Medical Record Review I have reviewed the following patient records and this information was taken into consideration when formulating the assessment and plan.: previous labs Time Spent With Patient Time with patient: 25 - 35 minutes Subjective Date/time seen: 11/22/25 1017 Interval history: Pt sitting up in his bed comfortably upon my arrival. Pt reports that his confusion is better today. Denies any other sx. Agreeable with bone scan and neph workup. Review of Systems Review of Systems: 12 systems were reviewed with pertinent positives and negatives per HPI. Except as documented in the HPI, all other systems were reviewed and are negative. All systems reviewed & are unremarkable except as noted in HPI and below Exam Narrative: Weight 67 kg BMI 21.8 Const: General: comfortable and no acute distress Other: , male, elderly, nontoxic appearance HENMT: Face/Nose/Sinus: Normal nares present Mouth: Yes moist mucous membranes Other: Mucous membranes are moist, no oral pharyngeal erythema, no scleral icterus, bilateral lens implants noted Eyes: General: appearance normal, both eyes and all related structures Sclera: sclerae normal Neck: Other: No JVD, no lymphadenopathy Resp: Effort & Inspection: normal respiratory effort Auscultation: clear to auscultation bilaterally Other: Clear to auscultation bilaterally, no increased work of breathing Cardio: Rate: regular rate Rhythm: regular rhythm Other: S1-S2 present without murmur, rub, ectopy GI: Other: Abdomen soft, nondistended, nontender. Normoactive bowel sounds in all quadrants. Skin: General skin exam: normal color and no rashes or lesions noted Wounds: no wounds Other: Mild pallor, non jaundice Neuro: Cranial nerves: Yes Equal, round and reactive pupils present Speech: normal speech Motor exam (neuro): 5/5 motor strength present throughout Sensory Exam: normal sensation Other: A&O x4 Extrem: General: normal to inspection Other: No clubbing, cyanosis or edema, 5/5 director of education strength bilateral Psych: Mental Status: mental status grossly normal Affect: normal affect Other: Good insight and judgment, pleasant Objective Data Vital Signs Vital Signs: Vital Signs - 24 hr 11/21/25 09:33 11/21/25 09:35 11/21/25 14:00 Temperature 97.2 F L Pulse Rate 75 58 L Respiratory Rate 16 Blood Pressure 131/78 Pulse Oximetry 97 Oxygen Delivery Room Air 11/21/25 20:00 11/21/25 22:00 Temperature 97.4 F L Pulse Rate 58 L Respiratory Rate 18 Blood Pressure 132/68 Pulse Oximetry 98 Oxygen Delivery Room Air Intake/Output Intake/Output: Intake & Output 11/19/25 11/20/25 11/21/25 11/22/25 23:59 23:59 23:59 23:59 Intake Total 1000 4073.8 Output Total 600 Balance 1000 3473.8 Meds/Results Medications: Active Medications Generic Name Dose Route Start Last Admin Trade Name Freq PRN Reason Stop Dose Admin Acetaminophen 500 mg 11/21/25 02:50 11/21/25 04:17 Acetaminophen 500 Mg Tablet PO 500 mg Q6H PRN Administration pain 1-3 or fever Aspirin 81 mg 11/21/25 09:00 11/21/25 09:33 Aspirin 81 Mg Enteric Tablet PO 81 mg QAM CORONA Administration Calcitonin [place] 280 units 11/21/25 09:00 11/21/25 21:55 Calcitonin [place] Inj 400 Units/2 Ml Vial SUB-Q 11/22/25 21:01 280 units Q12H CORONA Administration Clopidogrel Bisulfate 75 mg 11/21/25 09:00 11/21/25 09:33 Clopidogrel Bisulfate 75 Mg Tablet PO 75 mg DAILY CORONA Administration Dextrose 12.5 gm 11/21/25 03:38 Dextrose 50% 25 Gm/50 Ml Syringe IV PUSH PRN PRN Hypoglycemia Protocol Diclofenac Sodium 1 applic 11/21/25 09:00 11/21/25 09:36 Diclofenac Sodium 1% 100 Gm Gel (*Bkc) TOPICAL 1 applic DAILY CORONA Administration Ezetimibe 10 mg 11/21/25 09:00 11/21/25 09:33 Ezetimibe 10 Mg Tablet PO 10 mg DAILY CORONA Administration Enoxaparin Sodium 30 mg 11/21/25 09:00 11/21/25 09:35 Enoxaparin 30 Mg/0.3 Ml Syringe SUB-Q 30 mg DAILY CORONA Administration Fish Oil 1 gm 11/21/25 09:00 11/21/25 09:33 [place] 3 Polyunsat Fatty Acids 1 Gm Cap PO 1 gm DAILY CORONA Administration Glucagon 1 mg 11/21/25 03:38 Glucagon For Inj 1 Mg Vial IM PRN PRN Hypoglycemia Protocol Glucose 15 gm 11/21/25 03:38 Glucose Oral Gel 15 Gm Of Glucse In 37.5 Gm Tube PO PRN PRN Hypoglycemia Protocol Sodium Chloride 1,000 mls @ 75 mls/hr 11/20/25 20:35 11/21/25 21:59 Normal Saline Iv IV CONT 75 mls/hr .[id number] CORONA Administration Dextrose 1,000 mls @ 100 mls/hr 11/21/25 03:38 Dextrose 5% 1,000 Ml IVPB PRN PRN Hypoglycemia Protocol Insulin Aspart 2 - 5 units 11/21/25 08:00 11/21/25 16:52 Insulin Aspart (*Bkc) 100 Units/Ml SUB-Q 2 units TIDWM CORONA Administration Protocol Isosorbide Mononitrate 30 mg 11/21/25 09:00 11/21/25 09:33 Isosorbide Mononitrate 30 Mg Tab.Er.24h PO 30 mg DAILY CORONA Administration Levothyroxine Sodium 50 mcg 11/21/25 06:30 11/22/25 06:04 Levothyroxine Sodium 50 Mcg Tablet PO 50 mcg DAILY@0630 CORONA Administration Metoprolol Succinate 50 mg 11/21/25 09:00 11/21/25 09:33 Metoprolol Succinate Ext Rel 50 Mg Tabcr PO 50 mg DAILY CORONA Administration Polyethylene Glycol 17 gm 11/21/25 12:25 11/21/25 12:41 Polyethylene Glycol 3350 17 Gm Powd.Pack PO Not Given QAM CORONA Timolol Maleate 1 drop 11/21/25 09:00 11/21/25 21:55 Timolol Maleate 0.5% Op Soln 5 Ml Bottle EACH EYE 1 drop Q12HR CORONA Administration Labs Labs: Laboratory Results - last 24 hr 11/21/25 11/21/25 11/21/25 07:56 11:49 16:43 WBC RBC Hgb Hct MCV MCH MCHC RDW Plt Count MPV Immature Gran % (Auto) Neut % (Auto) Lymph % (Auto) [place] % (Auto) Eos % (Auto) Baso % (Auto) Lymph # (Auto) [place] # (Auto) Eos # (Auto) Baso # (Auto) Abs Immat Gran (auto) Absolute Neuts (auto) Absolute Nucleated RBC Nucleated RBC % Sodium Potassium Chloride Carbon Dioxide Anion Gap BUN Creatinine Estim Creat Clear Calc Estimated GFR Glucose POC Capillary Glucose 160 H 181 H 244 H Calcium Phosphorus Albumin TSH (Reflex) Random Cortisol U Random Total Protein Ur Random Sodium Urine Creatinine Protein/Creat Ratio 2 11/21/25 11/21/25 11/21/25 17:50 17:50 20:17 WBC RBC Hgb Hct MCV MCH MCHC RDW Plt Count MPV Immature Gran % (Auto) Neut % (Auto) Lymph % (Auto) [place] % (Auto) Eos % (Auto) Baso % (Auto) Lymph # (Auto) [place] # (Auto) Eos # (Auto) Baso # (Auto) Abs Immat Gran (auto) Absolute Neuts (auto) Absolute Nucleated RBC Nucleated RBC % Sodium Potassium Chloride Carbon Dioxide Anion Gap BUN Creatinine Estim Creat Clear Calc Estimated GFR Glucose POC Capillary Glucose 250 H Calcium Phosphorus Albumin TSH (Reflex) Random Cortisol U Random Total Protein 19 Ur Random Sodium 95 Urine Creatinine 19.8 19.6 Protein/Creat Ratio 2 0.96 H 11/22/25 11/22/25 04:29 07:26 WBC 5.6 RBC 4.49 L Hgb 14.5 Hct 41.7 L MCV 92.9 MCH 32.3 MCHC 34.8 RDW 12.1 Plt Count 156 MPV 10.3 Immature Gran % (Auto) 0.4 Neut % (Auto) 66.2 Lymph % (Auto) 14.8 L [place] % (Auto) 14.1 H Eos % (Auto) 3.8 Baso % (Auto) 0.7 Lymph # (Auto) 0.83 L [place] # (Auto) 0.8 H Eos # (Auto) 0.2 Baso # (Auto) 0.0 Abs Immat Gran (auto) 0.02 Absolute Neuts (auto) 3.7 Absolute Nucleated RBC 0.000 Nucleated RBC % 0.0 Sodium 136 L Potassium 4.2 Chloride 108 H Carbon Dioxide 20 L Anion Gap 8 BUN 34 H Creatinine 2.09 H Estim Creat Clear Calc 23 Estimated GFR 30 L Glucose 183 H POC Capillary Glucose 195 H Calcium 11.2 H Phosphorus 3.1 Albumin 3.6 TSH (Reflex) 1.820 Random Cortisol 7.48 U Random Total Protein Ur Random Sodium Urine Creatinine Protein/Creat Ratio 2 Quality VTE Prophylaxis VTE prophylaxis: pharmacologic ordered
[2025-11-22 08:51] VITALS: PULSE 58
[2025-11-22] MEDS: CLOPIDOGREL BISULFATE 75 MG TABLET PO (08:51)
[2025-11-22] MEDS: OMEGA 3 POLYUNSAT FATTY ACIDS 1 GM CAP PO (08:51)
[2025-11-22] MEDS: METOPROLOL SUCCINATE EXT REL 50 MG TABCR PO (08:51)
[2025-11-22] MEDS: EZETIMIBE 10 MG TABLET PO (08:51)
[2025-11-22] MEDS: ISOSORBIDE MONONITRATE 30 MG TAB.ER.24H PO (08:52)
[2025-11-22] MEDS: ENOXAPARIN 30 MG/0.3 ML SYRINGE SUB-Q (08:52)
[2025-11-22] MEDS: ASPIRIN 81 MG ENTERIC TABLET PO (08:52)
[2025-11-22] MEDS: CALCITONIN SALMON INJ 400 UNITS/2 ML VIAL 280 UNITS SUB-Q ×2 (08:52→21:19)
[2025-11-22] MEDS: TIMOLOL MALEATE 0.5% OP SOLN 5 ML BOTTLE 1 DROP EACH EYE ×2 (08:53→21:20)
[2025-11-22] MEDS: DICLOFENAC SODIUM 1% 100 GM GEL (*BKC) 1 APPLIC TOPICAL (12:13)
--- NOTE | 2025-11-22 13:27 | P.PNNP_ITS ---
Progress Note: A&P Assessment and Plan (1) Acute kidney injury: Code(s): N17.9 - Acute kidney failure, unspecified Status: Resolved Assessment and Plan: * fluctuating - creatinine up by labs today * admission creatinine slightly above baseline (2.19mg/dL) * outpatient labs prior to admission demonstrated a creatinine of 2.24mg/dl (on ) * possibly due to: * hypercalcemia? * prerenal factors? * other? * urine studies noted: * urine electrolytes non-prerenal * renal ultrasound (on 11/20) noted * already better with current interventions * follow trend of repeat labs and UOP (2) Stage 3b chronic kidney disease: Code(s): N18.32 - Chronic kidney disease, stage 3b Status: Acute Assessment and Plan: * baseline creatinine runs ~ 1.6 - 2.0mg/dl for the last couple of years * secondary to hypertension, diabetes, vascular disease, and age-related change * follows with Dr. Hunt for ongoing management of CKD (3) Hypercalcemia: Code(s): E83.52 - Hypercalcemia Status: Acute Assessment and Plan: * as noted by outpatient labs and labs on admission (calcium 13.1mg/dL) * this is his second occurrence: - previous admission on 11/08 -- calcium 13.3mg/dL -- discharge calcium level 11.3mg/dL (went as low as 10.9mg/dL) * improvement noted since admission: * calcium down to 10.5mg/dL today * s/p IV pamidronate (in ER) and started on IVFs * SQ calcitonin x 6 doses * evaluation to date (including testing from previous hospitalization): * PTH level low argues against primary hyperparathyroidism * urine calcium/creatinine ratio elevated (argues against [facility]) * SPEP & UPEP negative * serum/urine immunofixation with no monoclonality detected * PTHrp low * TESSA level normal * Vitamin D (25-OH) normal * 1,25 Vitamin D slightly elevated - possible absorptive hypercalcemia from GI tract? * skeletal survey negative for lytic bone lesions * CXR negative * bone scan pending * follow trend of repeat calcium levels (4) Confusion: Code(s): R41.0 - Disorientation, unspecified Status: Acute Assessment and Plan: * clinically better * as noted by history * suspect secondary to hypercalcemia (as he had this symptom prior to last hospitalization for elevated calcium level) * follow mentation (5) Essential (primary) hypertension: Code(s): I10 - Essential (primary) hypertension Status: Chronic Assessment and Plan: * reasonable control at this time * follow trend of hemodynamics (6) Type 2 diabetes mellitus with unspecified complications: Code(s): E11.8 - Type 2 diabetes mellitus with unspecified complications Status: Chronic Assessment and Plan: * follow accu-cheks * glycemic control per hospitalist Will continue to follow. L Subjective Date/time seen: 11/22/25 13:27 Interval history: Follow-up for acute kidney injury on chronic kidney disease and hypercalcemia. Renal functon/creatinine fluctuating and calcium up a bit by AM labs; he otherwise feels quite well and has no acute complaints at the time of my visit; no issues/events overnight or earlier this morning. Exam 2 Narrative: General: elderly but WD/WN male in NAD Heart: normal S1 and S2; no rub Lungs: clear to auscultation Abdomen: soft, nontender, nondistended, positive bowel sounds Extremities: no cyanosis or clubbing; no edema Skin: warm and dry Objective Data Vital Signs Vital Signs: Vital Signs Temp Pulse Resp BP Pulse Ox O2 Del Method 11/22/25 13:00 97.1 F L 59 L 14 126/61 98 11/22/25 08:55 Room Air 11/22/25 08:51 58 L 11/22/25 07:00 159/71 H 11/21/25 22:00 97.4 F L 58 L 18 132/68 98 11/21/25 20:00 Room Air Intake/Output Intake/Output: Intake & Output 11/19/25 11/20/25 11/21/25 11/22/25 23:59 23:59 23:59 23:59 Intake Total 1000 4073.8 1480 Output Total 600 Balance 1000 3473.8 1480 Meds/Results Medications: Active Medications Generic Name Dose Route Start Last Admin Trade Name Freq PRN Reason Stop Dose Admin Acetaminophen 500 mg 11/21/25 02:50 11/21/25 04:17 Acetaminophen 500 Mg Tablet PO 500 mg Q6H PRN Administration pain 1-3 or fever Aspirin 81 mg 11/21/25 09:00 11/22/25 08:52 Aspirin 81 Mg Enteric Tablet PO 81 mg QAM CORONA Administration Calcitonin [place] 280 units 11/21/25 09:00 11/22/25 08:52 Calcitonin [place] Inj 400 Units/2 Ml Vial SUB-Q 11/22/25 21:01 280 units Q12H CORONA Administration Clopidogrel Bisulfate 75 mg 11/21/25 09:00 11/22/25 08:51 Clopidogrel Bisulfate 75 Mg Tablet PO 75 mg DAILY CORONA Administration Dextrose 12.5 gm 11/21/25 03:38 Dextrose 50% 25 Gm/50 Ml Syringe IV PUSH PRN PRN Hypoglycemia Protocol Diclofenac Sodium 1 applic 11/21/25 09:00 11/22/25 12:13 Diclofenac Sodium 1% 100 Gm Gel (*Bkc) TOPICAL 1 applic DAILY CORONA Administration Ezetimibe 10 mg 11/21/25 09:00 11/22/25 08:51 Ezetimibe 10 Mg Tablet PO 10 mg DAILY CORONA Administration Enoxaparin Sodium 30 mg 11/21/25 09:00 11/22/25 08:52 Enoxaparin 30 Mg/0.3 Ml Syringe SUB-Q 30 mg DAILY CORONA Administration Fish Oil 1 gm 11/21/25 09:00 11/22/25 08:51 [place] 3 Polyunsat Fatty Acids 1 Gm Cap PO 1 gm DAILY CORONA Administration Glucagon 1 mg 11/21/25 03:38 Glucagon For Inj 1 Mg Vial IM PRN PRN Hypoglycemia Protocol Glucose 15 gm 11/21/25 03:38 Glucose Oral Gel 15 Gm Of Glucse In 37.5 Gm Tube PO PRN PRN Hypoglycemia Protocol Sodium Chloride 1,000 mls @ 75 mls/hr 11/20/25 20:35 11/22/25 16:39 Normal Saline Iv IV CONT 75 mls/hr .[id number] CORONA Administration Dextrose 1,000 mls @ 100 mls/hr 11/21/25 03:38 Dextrose 5% 1,000 Ml IVPB PRN PRN Hypoglycemia Protocol Insulin Aspart 2 - 5 units 11/21/25 08:00 11/22/25 16:42 Insulin Aspart (*Bkc) 100 Units/Ml SUB-Q 2 units TIDWM CORONA Administration Protocol Isosorbide Mononitrate 30 mg 11/21/25 09:00 11/22/25 08:52 Isosorbide Mononitrate 30 Mg Tab.Er.24h PO 30 mg DAILY CORONA Administration Levothyroxine Sodium 50 mcg 11/21/25 06:30 11/22/25 06:04 Levothyroxine Sodium 50 Mcg Tablet PO 50 mcg DAILY@0630 CORONA Administration Metoprolol Succinate 50 mg 11/21/25 09:00 11/22/25 08:51 Metoprolol Succinate Ext Rel 50 Mg Tabcr PO 50 mg DAILY CORONA Administration Polyethylene Glycol 17 gm 11/21/25 12:25 11/22/25 08:52 Polyethylene Glycol 3350 17 Gm Powd.Pack PO Not Given QAM CORONA Timolol Maleate 1 drop 11/21/25 09:00 11/22/25 08:53 Timolol Maleate 0.5% Op Soln 5 Ml Bottle EACH EYE 1 drop Q12HR CORONA Administration Radiology Results: ITS Impressions Chest X-Ray 11/22/25 09:12 IMPRESSION: 1. No acute cardiopulmonary disease. Bone Scan Nuclear Medicine 11/22/25 12:51 IMPRESSION: 1. Typical pattern of mild likely degenerative joint centered uptake and mild uptake along the margins of a left total knee arthroplasty. 2. No other suspicious foci of abnormal bone uptake to suggest osseous metastatic disease. 3. Status post right nephrectomy. Labs Labs: Laboratory Tests 11/22/25 04:29 11/22/25 04:29 Calcium 11.2 H Phosphorus 3.1 Albumin 3.6 TSH (Reflex) 1.820 Human Growth Hormone Pending Random Cortisol 7.48
[2025-11-22 14:00] VITALS: BP 126/61; PULSE 59; RESP 14; TEMP 36.2; O2SAT 98
[2025-11-22] MEDS: SODIUM CHLORIDE 0.9% IV 1,000 ML 75 ML IV CONT (16:39)
[2025-11-22] MEDS: INSULIN ASPART (*BKC) 100 UNITS/ML SUB-Q (16:42)
[2025-11-22 19:35] VITALS: O2SAT 98
[2025-11-22 20:29] VITALS: BP 156/80; PULSE 54; RESP 17; TEMP 36.4; O2SAT 97
[2025-11-23] MEDS: SODIUM CHLORIDE 0.9% IV 1,000 ML 100 ML IV CONT ×2 (03:24→13:10)
[2025-11-23] MEDS: LEVOTHYROXINE SODIUM 50 MCG TABLET PO (05:00)
[2025-11-23 05:41] LABS: Hematocrit 40.3 % (42.0-52.0); Hemoglobin 13.8 g/dL (14.0-18.0); Immature Granulocyte Percent A 0.4 % (0-0.5); Lymphocytes Absolute Auto 1.05 K/mm3 (0.9-3.2); Mean Corpuscular HGB Conc 34.2 g/dl (32-36); Mean Corpuscular Hemoglobin 31.8 pg (26-34); Mean Corpuscular Volume 92.9 fl (80-100); Nucleated Red Blood Cells Absolute Auto 0.000 K/mm3 (0.0-0.012); Nucleated Red Blood Cells Perc 0.0 % (0.0-0.2); Platelet Count Result 154 k/mm3 (150-375); Red Blood Count 4.34 M/mm3 (4.6-6.20); White Blood Count 5.2 K/mm3 (4.5-10.0)
[2025-11-23 05:58] LABS: Albumin Level 3.6 g/dL (3.5-5.1); Anion Gap 6 mmol/L (4-12); Blood Urea Nitrogen 33 mg/dL (9-20); Calcium 10.9 mg/dL (8.4-10.2); Carbon Dioxide 22 mmol/L (22-30); Chloride 109 mmol/L (98-107); Estimated CRCL calculation 24 ml/min; Estimated Glomerular Filt Rate 32; Glucose 182 mg/dL (65-110); Potassium 4.0 mmol/L (3.4-5.0); Sodium 137 mmol/L (137-145)
[2025-11-23 06:00] VITALS: BP 149/66; PULSE 56; RESP 17; TEMP 36.6; O2SAT 96
[2025-11-23 09:07] LABS: Calcium, Urine 11.9 mg/dL (Not Estab.)
[2025-11-23] MEDS: ASPIRIN 81 MG ENTERIC TABLET PO (09:55)
[2025-11-23] MEDS: EZETIMIBE 10 MG TABLET PO (09:55)
[2025-11-23] MEDS: METOPROLOL SUCCINATE EXT REL 50 MG TABCR PO (09:56)
[2025-11-23] MEDS: OMEGA 3 POLYUNSAT FATTY ACIDS 1 GM CAP PO (09:56)
[2025-11-23] MEDS: ENOXAPARIN 30 MG/0.3 ML SYRINGE SUB-Q (09:56)
[2025-11-23] MEDS: CALCITONIN SALMON INJ 400 UNITS/2 ML VIAL 280 UNITS SUB-Q (09:56)
[2025-11-23] MEDS: CLOPIDOGREL BISULFATE 75 MG TABLET PO (09:56)
[2025-11-23] MEDS: ISOSORBIDE MONONITRATE 30 MG TAB.ER.24H PO (09:56)
[2025-11-23] MEDS: TIMOLOL MALEATE 0.5% OP SOLN 5 ML BOTTLE 1 DROP EACH EYE ×2 (09:57→21:52)
[2025-11-23] MEDS: DICLOFENAC SODIUM 1% 100 GM GEL (*BKC) 1 APPLIC TOPICAL (09:57)
--- NOTE | 2025-11-23 11:00 | P.PNNP_ITS ---
Progress Note: A&P Assessment and Plan (1) Acute kidney injury: Code(s): N17.9 - Acute kidney failure, unspecified Status: Resolved Assessment and Plan: * fluctuating - creatinine up by labs today * admission creatinine slightly above baseline (2.19mg/dL) * outpatient labs prior to admission demonstrated a creatinine of 2.24mg/dl (on ) * possibly due to: * hypercalcemia? * prerenal factors? * other? * urine studies noted: * urine electrolytes non-prerenal * renal ultrasound (on 11/20) noted * already better with current interventions * follow trend of repeat labs and UOP (2) Stage 3b chronic kidney disease: Code(s): N18.32 - Chronic kidney disease, stage 3b Status: Acute Assessment and Plan: * baseline creatinine runs ~ 1.6 - 2.0mg/dl for the last couple of years * secondary to hypertension, diabetes, vascular disease, and age-related change * follows with Dr. Hunt for ongoing management of CKD (3) Hypercalcemia: Code(s): E83.52 - Hypercalcemia Status: Acute Assessment and Plan: * as noted by outpatient labs and labs on admission (calcium 13.1mg/dL) * this is his second occurrence: - previous admission on 11/08 -- calcium 13.3mg/dL -- discharge calcium level 11.3mg/dL (went as low as 10.9mg/dL) * improvement noted since admission: * calcium down to 10.5mg/dL today * s/p IV pamidronate (in ER) and started on IVFs * SQ calcitonin x 6 doses * evaluation to date (including testing from previous hospitalization): * PTH level low argues against primary hyperparathyroidism * urine calcium/creatinine ratio elevated (argues against [facility]) * SPEP & UPEP negative * serum/urine immunofixation with no monoclonality detected * PTHrp low * TESSA level normal * Vitamin D (25-OH) normal * 1,25 Vitamin D slightly elevated - possible absorptive hypercalcemia from GI tract? * skeletal survey negative for lytic bone lesions * CXR negative * bone scan negative * follow trend of repeat calcium levels (4) Confusion: Code(s): R41.0 - Disorientation, unspecified Status: Acute Assessment and Plan: * clinically better * as noted by history * suspect secondary to hypercalcemia (as he had this symptom prior to last hospitalization for elevated calcium level) * follow mentation (5) Essential (primary) hypertension: Code(s): I10 - Essential (primary) hypertension Status: Chronic Assessment and Plan: * reasonable control at this time * follow trend of hemodynamics (6) Type 2 diabetes mellitus with unspecified complications: Code(s): E11.8 - Type 2 diabetes mellitus with unspecified complications Status: Chronic Assessment and Plan: * follow accu-cheks * glycemic control per hospitalist Will continue to follow. L Subjective Date/time seen: 11/23/25 11:00 Interval history: Follow-up for acute kidney injury on chronic kidney disease and hypercalcemia. No apparent complaints voiced at the time of my visit; no issues/events overnight or earlier this morning; calcium and and renal function doing a bit better in the last 24 hours; believes his previous weakness and confusion have resolved at this time; no other complaints voiced. Exam 2 Narrative: General: elderly but WD/WN male in NAD Heart: normal S1 and S2; no rub Lungs: clear to auscultation Abdomen: soft, nontender, nondistended, positive bowel sounds Extremities: no cyanosis or clubbing; no edema Skin: warm and intact Objective Data Vital Signs Vital Signs: Vital Signs Temp Pulse Resp BP Pulse Ox O2 Del Method 11/23/25 06:00 97.8 F 56 L 17 149/66 H 96 11/22/25 20:29 97.5 F L 54 L 17 156/80 H 97 11/22/25 19:35 98 Room Air 11/22/25 14:00 97.0 F L 64 16 142/68 H 97 Intake/Output Intake/Output: Intake & Output 11/20/25 11/21/25 11/22/25 11/23/25 23:59 23:59 23:59 23:59 Intake Total 1000 4073.8 1808.7 2608.0 Output Total 600 Balance 1000 3473.8 1808.7 2608.0 Meds/Results Medications: Active Medications Generic Name Dose Route Start Last Admin Trade Name Freq PRN Reason Stop Dose Admin Acetaminophen 500 mg 11/21/25 02:50 11/21/25 04:17 Acetaminophen 500 Mg Tablet PO 500 mg Q6H PRN Administration pain 1-3 or fever Aspirin 81 mg 11/21/25 09:00 11/23/25 09:55 Aspirin 81 Mg Enteric Tablet PO 81 mg QAM CORONA Administration Calcitonin [place] 280 units 11/21/25 09:00 11/23/25 09:56 Calcitonin [place] Inj 400 Units/2 Ml Vial SUB-Q 11/23/25 21:01 280 units Q12H COR[place] Administration Clopidogrel Bisulfate 75 mg 11/21/25 09:00 11/23/25 09:56 Clopidogrel Bisulfate 75 Mg Tablet PO 75 mg DAILY CORONA Administration Dextrose 12.5 gm 11/21/25 03:38 Dextrose 50% 25 Gm/50 Ml Syringe IV PUSH PRN PRN Hypoglycemia Protocol Diclofenac Sodium 1 applic 11/21/25 09:00 11/23/25 09:57 Diclofenac Sodium 1% 100 Gm Gel (*Bkc) TOPICAL 1 applic DAILY CORONA Administration Ezetimibe 10 mg 11/21/25 09:00 11/23/25 09:55 Ezetimibe 10 Mg Tablet PO 10 mg DAILY CORONA Administration Enoxaparin Sodium 30 mg 11/21/25 09:00 11/23/25 09:56 Enoxaparin 30 Mg/0.3 Ml Syringe SUB-Q 30 mg DAILY CORONA Administration Fish Oil 1 gm 11/21/25 09:00 11/23/25 09:56 [place] 3 Polyunsat Fatty Acids 1 Gm Cap PO 1 gm DAILY CORONA Administration Glucagon 1 mg 11/21/25 03:38 Glucagon For Inj 1 Mg Vial IM PRN PRN Hypoglycemia Protocol Glucose 15 gm 11/21/25 03:38 Glucose Oral Gel 15 Gm Of Glucse In 37.5 Gm Tube PO PRN PRN Hypoglycemia Protocol Sodium Chloride 1,000 mls @ 100 mls/hr 11/20/25 20:35 11/23/25 13:10 Normal Saline Iv IV CONT 100 mls/hr .Q10H COR[place] Administration Dextrose 1,000 mls @ 100 mls/hr 11/21/25 03:38 Dextrose 5% 1,000 Ml IVPB PRN PRN Hypoglycemia Protocol Insulin Aspart 2 - 5 units 11/21/25 08:00 11/23/25 17:01 Insulin Aspart (*Bkc) 100 Units/Ml SUB-Q Not Given TIDWM [place] Protocol Isosorbide Mononitrate 30 mg 11/21/25 09:00 11/23/25 09:56 Isosorbide Mononitrate 30 Mg Tab.Er.24h PO 30 mg DAILY CORONA Administration Levothyroxine Sodium 50 mcg 11/21/25 06:30 11/23/25 05:00 Levothyroxine Sodium 50 Mcg Tablet PO 50 mcg DAILY@0630 CORONA Administration Metoprolol Succinate 50 mg 11/21/25 09:00 11/23/25 09:56 Metoprolol Succinate Ext Rel 50 Mg Tabcr PO 50 mg DAILY CORONA Administration Polyethylene Glycol 17 gm 11/21/25 12:25 11/23/25 09:57 Polyethylene Glycol 3350 17 Gm Powd.Pack PO 17 gm QAM [place] Administration Timolol Maleate 1 drop 11/21/25 09:00 11/23/25 09:57 Timolol Maleate 0.5% Op Soln 5 Ml Bottle EACH EYE 1 drop Q12HR [place] Administration Radiology Results: ITS Impressions Chest X-Ray 11/22/25 09:12 IMPRESSION: 1. No acute cardiopulmonary disease. Bone Scan Nuclear Medicine 11/22/25 12:51 IMPRESSION: 1. Typical pattern of mild likely degenerative joint centered uptake and mild uptake along the margins of a left total knee arthroplasty. 2. No other suspicious foci of abnormal bone uptake to suggest osseous metastatic disease. 3. Status post right nephrectomy. Labs Labs: Laboratory Tests 11/23/25 05:02 11/23/25 05:02 Calcium 10.9 H Phosphorus 3.2 Albumin 3.6
[2025-11-23] MEDS: INSULIN ASPART (*BKC) 100 UNITS/ML SUB-Q (13:10)
[2025-11-23 14:00] VITALS: BP 142/68; PULSE 64; RESP 16; TEMP 36.1; O2SAT 97
--- NOTE | 2025-11-23 14:14 | P.PNIM_ITS ---
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 Patient has been started on bisphosphonate infusion. Repeat calcium level has improved. Will continue IV fluid hydration. Neph consulted: Calcitonin injections, bone scan, CXR, and repeat urine studies ordered Continue to trend labs, 10.9 today CXR & bone scan NAD Plan for 24 more hours of IVF and discharge with Dr. Hunt neph f/u. Per Dr. Poole, pt was supposed to start outpt IV pamidronate tx but was admitted to the hospital before that started. (2) Secondary hyperparathyroidism, not elsewhere classified: Code(s): E21.1 - Secondary hyperparathyroidism, not elsewhere classified Status: Acute Assessment and Plan: See above (3) Stage 3b chronic kidney disease: Code(s): N18.32 - Chronic kidney disease, stage 3b Status: Acute Assessment and Plan: Patient does have CKD & creatinine is at her baseline this AM. Patient will be placed on a low-protein diet. Will await further recommendations from of Nephrology. Will monitor strict I&O's. Will avoid nephrotoxic medications. Trend labs daily Neph following (4) Essential (primary) hypertension: Code(s): I10 - Essential (primary) hypertension Status: Chronic Assessment and Plan: Patient's blood pressures are stable. Will resume home metoprolol and Imdur. Will continue home Plavix given patient's history of coronary artery disease and continue statin therapy. (5) Constipation: Qualifiers: Constipation type: unspecified constipation type Qualified Code(s): K59.00 - Constipation, unspecified Code(s): K59.00 - Constipation, unspecified Status: Acute Assessment and Plan: Resolved. Last BM uncertain but thinks around 11/17? Miralax ordered BM x3 on 11/21 (6) Type 2 diabetes mellitus with unspecified complications: Code(s): E11.8 - Type 2 diabetes mellitus with unspecified complications Status: Chronic Assessment and Plan: Will hold the patient's home Farxiga and metformin. Will place on low-dose sliding scale insulin with Accu-Cheks a.c. HS. Plan Trend labs, neph recs for x1 more day of IVF and probable discharge tomorrow. Medical Record Review I have reviewed the following patient records and this information was taken into consideration when formulating the assessment and plan.: previous labs Consultations Consultations: I have discussed the care of this pt with the consulting providers. Time Spent With Patient Time with patient: 25 - 35 minutes Subjective Date/time seen: 11/23/25 1040 Interval history: Pt up walking in his room upon my arrival. Pt reports that his confusion and weakness are all about gone. Denies any other sx. Agreeable with x1 more day of IVF with probable discharge tomorrow. Review of Systems Review of Systems: 12 systems were reviewed with pertinent positives and negatives per HPI. Except as documented in the HPI, all other systems were reviewed and are negative. All systems reviewed & are unremarkable except as noted in HPI and below Exam Narrative: Weight 67 kg BMI 21.8 Const: General: comfortable and no acute distress Other: , male, elderly, nontoxic appearance HENMT: Face/Nose/Sinus: Normal nares present Mouth: Yes moist mucous membranes Other: Mucous membranes are moist, no oral pharyngeal erythema, no scleral icterus, bilateral lens implants noted Eyes: General: appearance normal, both eyes and all related structures Sclera: sclerae normal Neck: Other: No JVD, no lymphadenopathy Resp: Effort & Inspection: normal respiratory effort Auscultation: clear to auscultation bilaterally Other: Clear to auscultation bilaterally, no increased work of breathing Cardio: Rate: regular rate Rhythm: regular rhythm Other: S1-S2 present without murmur, rub, ectopy GI: Other: Abdomen soft, nondistended, nontender. Normoactive bowel sounds in all quadrants. 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 Psych: Mental Status: mental status grossly normal Affect: normal affect Other: Good insight and judgment, pleasant Objective Data Vital Signs Vital Signs: Vital Signs - 24 hr 11/22/25 19:35 11/22/25 20:29 11/23/25 06:00 Temperature 97.5 F L 97.8 F Pulse Rate 54 L 56 L Respiratory Rate 17 17 Blood Pressure 156/80 H 149/66 H Pulse Oximetry 98 97 96 Oxygen Delivery Room Air Intake/Output Intake/Output: Intake & Output 11/20/25 11/21/25 11/22/25 11/23/25 23:59 23:59 23:59 23:59 Intake Total 1000 4073.8 1808.7 2128.0 Output Total 600 Balance 1000 3473.8 1808.7 2128.0 Meds/Results Medications: Active Medications Generic Name Dose Route Start Last Admin Trade Name Freq PRN Reason Stop Dose Admin Acetaminophen 500 mg 11/21/25 02:50 11/21/25 04:17 Acetaminophen 500 Mg Tablet PO 500 mg Q6H PRN Administration pain 1-3 or fever Aspirin 81 mg 11/21/25 09:00 11/23/25 09:55 Aspirin 81 Mg Enteric Tablet PO 81 mg QAM CORONA Administration Calcitonin [place] 280 units 11/21/25 09:00 11/23/25 09:56 Calcitonin [place] Inj 400 Units/2 Ml Vial SUB-Q 11/23/25 21:01 280 units Q12H COR[place] Administration Clopidogrel Bisulfate 75 mg 11/21/25 09:00 11/23/25 09:56 Clopidogrel Bisulfate 75 Mg Tablet PO 75 mg DAILY CORONA Administration Dextrose 12.5 gm 11/21/25 03:38 Dextrose 50% 25 Gm/50 Ml Syringe IV PUSH PRN PRN Hypoglycemia Protocol Diclofenac Sodium 1 applic 11/21/25 09:00 11/23/25 09:57 Diclofenac Sodium 1% 100 Gm Gel (*Bkc) TOPICAL 1 applic DAILY CORONA Administration Ezetimibe 10 mg 11/21/25 09:00 11/23/25 09:55 Ezetimibe 10 Mg Tablet PO 10 mg DAILY CORONA Administration Enoxaparin Sodium 30 mg 11/21/25 09:00 11/23/25 09:56 Enoxaparin 30 Mg/0.3 Ml Syringe SUB-Q 30 mg DAILY CORONA Administration Fish Oil 1 gm 11/21/25 09:00 11/23/25 09:56 [place] 3 Polyunsat Fatty Acids 1 Gm Cap PO 1 gm DAILY CORONA Administration Glucagon 1 mg 11/21/25 03:38 Glucagon For Inj 1 Mg Vial IM PRN PRN Hypoglycemia Protocol Glucose 15 gm 11/21/25 03:38 Glucose Oral Gel 15 Gm Of Glucse In 37.5 Gm Tube PO PRN PRN Hypoglycemia Protocol Sodium Chloride 1,000 mls @ 100 mls/hr 11/20/25 20:35 11/23/25 13:10 Normal Saline Iv IV CONT 100 mls/hr .Q10H [place] Administration Dextrose 1,000 mls @ 100 mls/hr 11/21/25 03:38 Dextrose 5% 1,000 Ml IVPB PRN PRN Hypoglycemia Protocol Insulin Aspart 2 - 5 units 11/21/25 08:00 11/23/25 13:10 Insulin Aspart (*Bkc) 100 Units/Ml SUB-Q 2 units TIDWM [place] Administration Protocol Isosorbide Mononitrate 30 mg 11/21/25 09:00 11/23/25 09:56 Isosorbide Mononitrate 30 Mg Tab.Er.24h PO 30 mg DAILY CORONA Administration Levothyroxine Sodium 50 mcg 11/21/25 06:30 11/23/25 05:00 Levothyroxine Sodium 50 Mcg Tablet PO 50 mcg DAILY@0630 CORONA Administration Metoprolol Succinate 50 mg 11/21/25 09:00 11/23/25 09:56 Metoprolol Succinate Ext Rel 50 Mg Tabcr PO 50 mg DAILY CORONA Administration Polyethylene Glycol 17 gm 11/21/25 12:25 11/23/25 09:57 Polyethylene Glycol 3350 17 Gm Powd.Pack PO 17 gm QAM COR[place] Administration Timolol Maleate 1 drop 11/21/25 09:00 11/23/25 09:57 Timolol Maleate 0.5% Op Soln 5 Ml Bottle EACH EYE 1 drop Q12HR [place] Administration Radiology Results: ITS Impressions Chest X-Ray 11/22/25 09:12 IMPRESSION: 1. No acute cardiopulmonary disease. Bone Scan Nuclear Medicine 11/22/25 12:51 IMPRESSION: 1. Typical pattern of mild likely degenerative joint centered uptake and mild uptake along the margins of a left total knee arthroplasty. 2. No other suspicious foci of abnormal bone uptake to suggest osseous metastatic disease. 3. Status post right nephrectomy. Labs Labs: Laboratory Results - last 24 hr 11/21/25 11/22/25 11/22/25 17:50 16:33 20:03 WBC RBC Hgb Hct MCV MCH MCHC RDW Plt Count MPV Immature Gran % (Auto) Neut % (Auto) Lymph % (Auto) Sanders % (Auto) Eos % (Auto) Baso % (Auto) Lymph # (Auto) [place] # (Auto) Eos # (Auto) Baso # (Auto) Abs Immat Gran (auto) Absolute Neuts (auto) Absolute Nucleated RBC Nucleated RBC % Sodium Potassium Chloride Carbon Dioxide Anion Gap BUN Creatinine Estim Creat Clear Calc Estimated GFR Glucose POC Capillary Glucose 241 H 236 H Calcium Phosphorus Albumin Urine Calcium 11.9 11/22/25 11/23/25 11/23/25 21:23 05:02 08:09 WBC 5.2 RBC 4.34 L Hgb 13.8 L Hct 40.3 L MCV 92.9 MCH 31.8 MCHC 34.2 RDW 12.1 Plt Count 154 MPV 10.2 Immature Gran % (Auto) 0.4 Neut % (Auto) 59.0 Lymph % (Auto) 20.3 [place] % (Auto) 16.2 H Eos % (Auto) 3.3 Baso % (Auto) 0.8 Lymph # (Auto) 1.05 [place] # (Auto) 0.8 H Eos # (Auto) 0.2 Baso # (Auto) 0.0 Abs Immat Gran (auto) 0.02 Absolute Neuts (auto) 3.1 Absolute Nucleated RBC 0.000 Nucleated RBC % 0.0 Sodium 137 Potassium 4.0 Chloride 109 H Carbon Dioxide 22 Anion Gap 6 BUN 33 H Creatinine 2.00 H Estim Creat Clear Calc 24 Estimated GFR 32 L Glucose 182 H POC Capillary Glucose 231 H 190 H Calcium 10.9 H Phosphorus 3.2 Albumin 3.6 Urine Calcium 11/23/25 11:36 WBC RBC Hgb Hct MCV MCH MCHC RDW Plt Count MPV Immature Gran % (Auto) Neut % (Auto) Lymph % (Auto) [place] % (Auto) Eos % (Auto) Baso % (Auto) Lymph # (Auto) [place] # (Auto) Eos # (Auto) Baso # (Auto) Abs Immat Gran (auto) Absolute Neuts (auto) Absolute Nucleated RBC Nucleated RBC % Sodium Potassium Chloride Carbon Dioxide Anion Gap BUN Creatinine Estim Creat Clear Calc Estimated GFR Glucose POC Capillary Glucose 236 H Calcium Phosphorus Albumin Urine Calcium Quality VTE Prophylaxis VTE prophylaxis: pharmacologic ordered
--- NOTE | 2025-11-23 19:41 | PC.NURSE ---
Dr. Poole has been notified hospital is currently out of calcitonin injections.
[2025-11-23 20:47] VITALS: BP 158/65; PULSE 56; RESP 16; TEMP 36.6; O2SAT 98
[2025-11-24] MEDS: SODIUM CHLORIDE 0.9% IV 1,000 ML 100 ML IV CONT ×2 (00:06→11:50)
[2025-11-24 04:58] VITALS: BP 148/69; PULSE 61; RESP 18; TEMP 36.1; O2SAT 96
[2025-11-24 05:16] LABS: Hematocrit 38.9 % (42.0-52.0); Hemoglobin 13.4 g/dL (14.0-18.0); Immature Granulocyte Percent A 0.4 % (0-0.5); Lymphocytes Absolute Auto 1.04 K/mm3 (0.9-3.2); Mean Corpuscular HGB Conc 34.4 g/dl (32-36); Mean Corpuscular Hemoglobin 31.8 pg (26-34); Mean Corpuscular Volume 92.2 fl (80-100); Nucleated Red Blood Cells Absolute Auto 0.000 K/mm3 (0.0-0.012); Nucleated Red Blood Cells Perc 0.0 % (0.0-0.2); Platelet Count Result 146 k/mm3 (150-375); Red Blood Count 4.22 M/mm3 (4.6-6.20); White Blood Count 5.3 K/mm3 (4.5-10.0)
[2025-11-24 05:38] LABS: Albumin Level 3.3 g/dL (3.5-5.1); Anion Gap 6 mmol/L (4-12); Blood Urea Nitrogen 30 mg/dL (9-20); Calcium 10.1 mg/dL (8.4-10.2); Carbon Dioxide 21 mmol/L (22-30); Chloride 110 mmol/L (98-107); Estimated CRCL calculation 28 ml/min; Estimated Glomerular Filt Rate 38; Glucose 170 mg/dL (65-110); Potassium 4.1 mmol/L (3.4-5.0); Sodium 137 mmol/L (137-145)
[2025-11-24] MEDS: LEVOTHYROXINE SODIUM 50 MCG TABLET PO (05:44)
[2025-11-24 08:54] VITALS: BP 164/63; PULSE 59; RESP 16; TEMP 36.7; O2SAT 97
[2025-11-24 08:56] VITALS: PULSE 64
[2025-11-24] MEDS: CLOPIDOGREL BISULFATE 75 MG TABLET PO (08:56)
[2025-11-24] MEDS: METOPROLOL SUCCINATE EXT REL 50 MG TABCR PO (08:56)
[2025-11-24] MEDS: EZETIMIBE 10 MG TABLET PO (08:56)
[2025-11-24] MEDS: ASPIRIN 81 MG ENTERIC TABLET PO (08:56)
[2025-11-24] MEDS: ENOXAPARIN 30 MG/0.3 ML SYRINGE SUB-Q (08:56)
[2025-11-24] MEDS: OMEGA 3 POLYUNSAT FATTY ACIDS 1 GM CAP PO (08:56)
[2025-11-24] MEDS: ISOSORBIDE MONONITRATE 30 MG TAB.ER.24H PO (08:56)
[2025-11-24] MEDS: DICLOFENAC SODIUM 1% 100 GM GEL (*BKC) 1 APPLIC TOPICAL (08:57)
[2025-11-24 09:02] VITALS: PULSE 64; RESP 16; O2SAT 97
[2025-11-24] MEDS: TIMOLOL MALEATE 0.5% OP SOLN 5 ML BOTTLE 1 DROP EACH EYE (09:02)
--- NOTE | 2025-11-24 10:30 | P.PNNP_ITS ---
Progress Note: A&P Assessment and Plan (1) Acute kidney injury: Code(s): N17.9 - Acute kidney failure, unspecified Status: Resolved Assessment and Plan: * back to baseline/resolved * admission creatinine slightly above baseline (2.19mg/dL) * outpatient labs prior to admission demonstrated a creatinine of 2.24mg/dl (on 11/18) * possibly due to: * hypercalcemia? * prerenal factors? * other? 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 Hunt for ongoing management of CKD (3) Hypercalcemia: Code(s): E83.52 - Hypercalcemia Status: Acute Assessment and Plan: * improvement noted/normalized * as noted by outpatient labs and labs on admission (calcium 13.1mg/dL) * this is his second occurrence: - previous admission on 11/08 -- calcium 13.3mg/dL -- discharge calcium level 11.3mg/dL (went as low as 10.9mg/dL) * s/p IV pamidronate (in ER) and started on IVFs * SQ calcitonin x 6 doses (only received 5 doses as pharmacy did not have enough of the medication for 6 doses) * evaluation to date (including testing from previous hospitalization): * PTH level low argues against primary hyperparathyroidism * urine calcium/creatinine ratio elevated (argues against [facility]) * SPEP & UPEP negative * serum/urine immunofixation with no monoclonality detected * PTHrp low * TESSA level normal * Vitamin D (25-OH) normal * 1,25 Vitamin D slightly elevated - possible absorptive hypercalcemia from GI tract? * skeletal survey negative for lytic bone lesions * CXR negative * bone scan negative * follow trend of repeat calcium levels (4) Confusion: Code(s): R41.0 - Disorientation, unspecified Status: Acute Assessment and Plan: * clinically better * as noted by history * suspect secondary to hypercalcemia (as he had this symptom prior to last hospitalization for elevated calcium level) * follow mentation (5) Essential (primary) hypertension: Code(s): I10 - Essential (primary) hypertension Status: Chronic Assessment and Plan: * reasonable control at this time * follow trend of hemodynamics (6) Type 2 diabetes mellitus with unspecified complications: Code(s): E11.8 - Type 2 diabetes mellitus with unspecified complications Status: Chronic Assessment and Plan: * follow accu-cheks * glycemic control per hospitalist Not opposed to discharge from renal perspective -- will likely need serial labs to follow trend of calcium level as well as follow-up with Dr. Hunt for management of his CKD; may need referral to Endocrinology for further evaluation of his fluctuating hypercalcemia as well. Will continue to follow. L Subjective Date/time seen: 11/24/25 10:30 Interval history: Follow-up for acute kidney injury on chronic kidney disease and hypercalcemia. Appears to be doing quite well at the time of my visit; calcium has normalized and renalfunction/creatinine has returned to baseline with current interventions/therapy (IV pamidronate, SQ calcitonin, and IVFs); feeling pretty good when seen; no other issues/events overnight or earlier this morning; no apparent distress voiced. Exam 2 Narrative: General: elderly but WD/WN male in NAD Heart: normal S1 and S2; no rub Lungs: clear to auscultation Abdomen: soft, nontender, nondistended, positive bowel sounds Extremities: no cyanosis or clubbing; no edema Skin: no rash or nodules Objective Data Vital Signs Vital Signs: Vital Signs Temp Pulse Resp BP Pulse Ox O2 Del Method 11/24/25 09:02 64 16 97 Room Air 11/24/25 08:56 64 11/24/25 08:54 98.1 F 59 L 16 164/63 H 97 11/24/25 04:58 97 F L 61 18 148/69 H 96 11/23/25 20:47 98 F 56 L 16 158/65 H 98 11/23/25 14:00 97.0 F L 64 16 142/68 H 97 Intake/Output Intake/Output: Intake & Output 11/21/25 11/22/25 11/23/25 11/24/25 23:59 23:59 23:59 23:59 Intake Total 4073.8 1808.7 3608.0 1820 Output Total 600 Balance 3473.8 1808.7 3608.0 1820 Meds/Results Medications: Active Medications Generic Name Dose Route Start Last Admin Trade Name Freq PRN Reason Stop Dose Admin Acetaminophen 500 mg 11/21/25 02:50 11/21/25 04:17 Acetaminophen 500 Mg Tablet PO 500 mg Q6H PRN Administration pain 1-3 or fever Aspirin 81 mg 11/21/25 09:00 11/24/25 08:56 Aspirin 81 Mg Enteric Tablet PO 81 mg QAM CORONA Administration Clopidogrel Bisulfate 75 mg 11/21/25 09:00 11/24/25 08:56 Clopidogrel Bisulfate 75 Mg Tablet PO 75 mg DAILY CORONA Administration Dextrose 12.5 gm 11/21/25 03:38 Dextrose 50% 25 Gm/50 Ml Syringe IV PUSH PRN PRN Hypoglycemia Protocol Diclofenac Sodium 1 applic 11/21/25 09:00 11/24/25 08:57 Diclofenac Sodium 1% 100 Gm Gel (*Bkc) TOPICAL 1 applic DAILY CORONA Administration Ezetimibe 10 mg 11/21/25 09:00 11/24/25 08:56 Ezetimibe 10 Mg Tablet PO 10 mg DAILY CORONA Administration Enoxaparin Sodium 30 mg 11/21/25 09:00 11/24/25 08:56 Enoxaparin 30 Mg/0.3 Ml Syringe SUB-Q 30 mg DAILY CORONA Administration Fish Oil 1 gm 11/21/25 09:00 11/24/25 08:56 [place] 3 Polyunsat Fatty Acids 1 Gm Cap PO 1 gm DAILY CORONA Administration Glucagon 1 mg 11/21/25 03:38 Glucagon For Inj 1 Mg Vial IM PRN PRN Hypoglycemia Protocol Glucose 15 gm 11/21/25 03:38 Glucose Oral Gel 15 Gm Of Glucse In 37.5 Gm Tube PO PRN PRN Hypoglycemia Protocol Sodium Chloride 1,000 mls @ 100 mls/hr 11/20/25 20:35 11/24/25 11:50 Normal Saline Iv IV CONT 100 mls/hr .Q10H CORONA Administration Dextrose 1,000 mls @ 100 mls/hr 11/21/25 03:38 Dextrose 5% 1,000 Ml IVPB PRN PRN Hypoglycemia Protocol Insulin Aspart 2 - 5 units 11/21/25 08:00 11/24/25 11:54 Insulin Aspart (*Bkc) 100 Units/Ml SUB-Q 2 units TIDWM CORONA Administration Protocol Isosorbide Mononitrate 30 mg 11/21/25 09:00 11/24/25 08:56 Isosorbide Mononitrate 30 Mg Tab.Er.24h PO 30 mg DAILY CORONA Administration Levothyroxine Sodium 50 mcg 11/21/25 06:30 11/24/25 05:44 Levothyroxine Sodium 50 Mcg Tablet PO 50 mcg DAILY@0630 CORONA Administration Metoprolol Succinate 50 mg 11/21/25 09:00 11/24/25 08:56 Metoprolol Succinate Ext Rel 50 Mg Tabcr PO 50 mg DAILY CORONA Administration Polyethylene Glycol 17 gm 11/21/25 12:25 11/24/25 08:57 Polyethylene Glycol 3350 17 Gm Powd.Pack PO 17 gm QAM CORONA Administration Timolol Maleate 1 drop 11/21/25 09:00 11/24/25 09:02 Timolol Maleate 0.5% Op Soln 5 Ml Bottle EACH EYE 1 drop Q12HR CORONA Administration Radiology Results: ITS Impressions Chest X-Ray 11/22/25 09:12 IMPRESSION: 1. No acute cardiopulmonary disease. Bone Scan Nuclear Medicine 11/22/25 12:51 IMPRESSION: 1. Typical pattern of mild likely degenerative joint centered uptake and mild uptake along the margins of a left total knee arthroplasty. 2. No other suspicious foci of abnormal bone uptake to suggest osseous metastatic disease. 3. Status post right nephrectomy. Labs Labs: Laboratory Tests 11/24/25 04:54 11/24/25 04:54 Calcium 10.1 Phosphorus 2.9 Albumin 3.3 L
[2025-11-24] MEDS: INSULIN ASPART (*BKC) 100 UNITS/ML SUB-Q (11:54)
--- NOTE | 2025-11-24 12:28 | P.DS_ITS ---
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 Patient has been started on bisphosphonate infusion. Repeat calcium level has improved. Will continue IV fluid hydration. Neph consulted: Calcitonin injections, bone scan, CXR, and repeat urine studies ordered Continue to trend labs, 10.9 today CXR & bone scan NAD Plan for 24 more hours of IVF and discharge with Dr. Hunt neph f/u. Per Dr. Poole, pt was supposed to start outpt IV pamidronate tx but was admitted to the hospital before that started. (2) Secondary hyperparathyroidism, not elsewhere classified: Code(s): E21.1 - Secondary hyperparathyroidism, not elsewhere classified Status: Acute Assessment and Plan: See above (3) Stage 3b chronic kidney disease: Code(s): N18.32 - Chronic kidney disease, stage 3b Status: Acute Assessment and Plan: Patient does have CKD & creatinine is at her baseline this AM. Patient will be placed on a low-protein diet. Will await further recommendations from of Nephrology. Will monitor strict I&O's. Will avoid nephrotoxic medications. Trend labs daily Neph following (4) Essential (primary) hypertension: Code(s): I10 - Essential (primary) hypertension Status: Chronic Assessment and Plan: Patient's blood pressures are stable. Will resume home metoprolol and Imdur. Will continue home Plavix given patient's history of coronary artery disease and continue statin therapy. (5) Constipation: Qualifiers: Constipation type: unspecified constipation type Qualified Code(s): K59.00 - Constipation, unspecified Code(s): K59.00 - Constipation, unspecified Status: Acute Assessment and Plan: Resolved. Last BM uncertain but thinks around 11/17? Miralax ordered BM x3 on 11/21 (6) Type 2 diabetes mellitus with unspecified complications: Code(s): E11.8 - Type 2 diabetes mellitus with unspecified complications Status: Chronic Assessment and Plan: Will hold the patient's home Farxiga and metformin. Will place on low-dose sliding scale insulin with Accu-Cheks a.c. HS. Plan Discharge home with prompt neph f/u DS: Summary Hospital Course Reason for hospitalization: Hypercalcemia Hospital Course: The patient is an 85-year-old male with a history of stage 3b chronic kidney disease, coronary artery disease with prior stent, hypertension, type 2 diabetes mellitus, and recurrent hypercalcemia who presented with abnormal outpatient labs and associated symptoms of fatigue, gait instability, tremor, constipation, and intermittent confusion. On admission, he was found to have recurrent severe hypercalcemia (calcium 13.1 mg/dL) with a mild acute kidney injury on chronic kidney disease (creatinine 2.19 mg/dL). He was started on aggressive IV fluid hydration and received IV pamidronate in the emergency department, followed by scheduled subcutaneous calcitonin. Nephrology was consulted and guided further evaluation, including extensive prior and inpatient workup for hypercalcemia, which was negative for malignancy, multiple myeloma, primary hyperparathyroidism, granulomatous disease, or metastatic bone disease. Imaging including renal ultrasound, chest X-ray, skeletal survey, and nuclear bone scan showed no acute or malignant process. Laboratory evaluation demonstrated low PTH, low PTHrP, normal 25-OH vitamin D, mildly elevated 1,25 vitamin D, and elevated urine calcium/creatinine ratio, supporting a non?PTH-mediated etiology. During hospitalization, calcium levels steadily improved to 10.1 mg/dL at discharge, renal function returned to baseline, and the patient?s mental status, weakness, and gait instability resolved. Blood pressures and glucose levels remained stable with adjustment of home diabetic medications. Constipation resolved with bowel regimen. The patient remained hemodynamically stable throughout his stay and was discharged home in stable condition with plans for close outpatient nephrology follow-up, repeat labs, continuation of hydration, avoidance of calcium-containing products, and arrangement for outpatient IV pa midronate therapy. Status at Discharge Overall status at discharge: patient is back to baseline Time Spent with Patient Time attestation: Total time spent providing and/or coordinating discharge services: Time spent: Greater than 30 minutes Exam Narrative: Weight 67 kg BMI 21.8 Const: General: comfortable and no acute distress Other: , male, elderly, nontoxic appearance HENMT: Face/Nose/Sinus: Normal nares present Mouth: Yes moist mucous membranes Other: Mucous membranes are moist, no oral pharyngeal erythema, no scleral icterus, bilateral lens implants noted Eyes: General: appearance normal, both eyes and all related structures Sclera: sclerae normal Neck: Other: No JVD, no lymphadenopathy Resp: Effort & Inspection: normal respiratory effort Auscultation: clear to auscultation bilaterally Other: Clear to auscultation bilaterally, no increased work of breathing Cardio: Rate: regular rate Rhythm: regular rhythm Other: S1-S2 present without murmur, rub, ectopy GI: Other: Abdomen soft, nondistended, nontender. Normoactive bowel sounds in all quadrants. Skin: General skin exam: normal color and no rashes or lesions noted Wounds: no wounds Other: Mild pallor, non jaundice Neuro: Cranial nerves: Yes Equal, round and reactive pupils present Speech: normal speech Motor exam (neuro): 5/5 motor strength present throughout Sensory Exam: normal sensation Other: A&O x4 Extrem: General: normal to inspection Other: No clubbing, cyanosis or edema Psych: Mental Status: mental status grossly normal Affect: normal affect Other: Good insight and judgment, pleasant DS: Data Data Completed and Pending Completed studies during hospitalization: Labs, urine, imaging Pending studies at discharge: Neph urine studies Labs on day of discharge: Labs from last 24 hours 11/24/25 11/24/25 11/24/25 11:36 07:35 04:54 WBC 5.3 RBC 4.22 L Hgb 13.4 L Hct 38.9 L MCV 92.2 MCH 31.8 MCHC 34.4 RDW 12.3 Plt Count 146 L MPV 10.2 Immature Gran % (Auto) 0.4 Neut % (Auto) 61.1 Lymph % (Auto) 19.7 [place] % (Auto) 13.3 H Eos % (Auto) 4.7 H Baso % (Auto) 0.8 Lymph # (Auto) 1.04 [place] # (Auto) 0.7 H Eos # (Auto) 0.3 Baso # (Auto) 0.0 Abs Immat Gran (auto) 0.02 Absolute Neuts (auto) 3.2 Absolute Nucleated RBC 0.000 Nucleated RBC % 0.0 Sodium 137 Potassium 4.1 Chloride 110 H Carbon Dioxide 21 L Anion Gap 6 BUN 30 H Creatinine 1.71 H Estim Creat Clear Calc 28 Estimated GFR 38 L Glucose 170 H POC Capillary Glucose 228 H 176 H Calcium 10.1 Phosphorus 2.9 Albumin 3.3 L 11/23/25 11/23/25 20:51 16:34 WBC RBC Hgb Hct MCV MCH MCHC RDW Plt Count MPV Immature Gran % (Auto) Neut % (Auto) Lymph % (Auto) [place] % (Auto) Eos % (Auto) Baso % (Auto) Lymph # (Auto) [place] # (Auto) Eos # (Auto) Baso # (Auto) Abs Immat Gran (auto) Absolute Neuts (auto) Absolute Nucleated RBC Nucleated RBC % Sodium Potassium Chloride Carbon Dioxide Anion Gap BUN Creatinine Estim Creat Clear Calc Estimated GFR Glucose POC Capillary Glucose 182 H 155 H Calcium Phosphorus Albumin Discharge Plan Discharge Attending physician on discharge: Tamir Dallas Consulting providers: Celso Hurst; Augustine Poole; Perla Mackey Discharging Clinician: Perla Mackey Anticipated Discharge Date/Time: 11/24/25 15:00 Patient Disposition: Home Activity: as tolerated Diet: diabetic and low protein Discharge Instructions: Discharge Instructions ? Hypercalcemia * Reason for hospitalization:?Elevated calcium levels treated with calcitonin injections * Current status:?Calcium normalized and stable for discharge Medications * You were given?5 calcitonin injections?while in the hospital * Take only medications listed on your discharge medication list * Avoid calcium supplements, vitamin D supplements, and antacids containing calcium unless specifically instructed otherwise Hydration * Drink plenty of fluids daily to help keep your calcium down * Aim for pale yellow urine as a general guide to adequate hydration Follow-Up Care * Nephrology:?Follow up with?Dr. Hunt?to arrange?IV pamidronate infusions, call his office tomorrow to make an appt / speak with his team on next steps * Keep all scheduled lab appointments to monitor calcium and kidney function, I have written you for an order for this in case Dr. Hunt does not get back to you right away * Contact the nephrology office if you have not heard about infusion scheduling within the expected timeframe Activity and Diet * Resume activity as tolerated * Avoid excessive dairy or high-calcium foods (low protein diet) until cleared by nephrology When to Seek Medical Care * Nausea or vomiting that does not improve * New or worsening confusion, fatigue, or weakness * Muscle cramps, bone pain, or worsening constipation * Decreased urine output or dark urine * Chest pain, shortness of breath, or severe symptoms?seek emergency care Questions or Concerns * Contact your care team or nephrology office with medication questions or new symptoms Patient Instructions: Calcitonin (By injection), Pamidronate (By injection), Hypercalcemia (GEN) Patient Language: Estonian Stand Alone Forms: General Discharge Information Follow-up/Referrals: Yovany Hunt MD [Physician, Nephrology] - 11/25/25 Discharge Medications: Continued (DME) OneTouch Ultra Test Strip See Rx Instructions .Route Rx Instructions: As directed aspirin,buffd-calcium carb-mag 81 mg tablet 1 tablet PO DAILY omega 7-uus-aso-fish oil [Fish Oil] 1,000 mg (120 mg-180 mg) capsule 1 cap PO DAILY polyethylene glycol 3350 [Miralax] 17 gram/dose powder 17 g PO DAILY PRN (Reason: constipation) Rx Instructions: 1/2 dose per day if needed acetaminophen [Tylenol Extra Strength] 500 mg tablet 500 mg PO Q6H PRN (Reason: pain) diclofenac sodium 1 % gel 2 g topical DAILY Rx Instructions: apply to single elbow, wrist or hand; for hand includes palm/fingers/back of hand dapagliflozin propanediol [Farxiga] 5 mg tablet 5 mg PO DAILY B-complex with vitamin C Capsule 1 cap PO DAILY atorvastatin 10 mg tablet 10 mg PO .twice weekly Rx Instructions: take on Mon and Fri clopidogrel 75 mg tablet 75 mg PO DAILY ezetimibe 10 mg tablet 10 mg PO DAILY isosorbide mononitrate 30 mg tablet extended release 24 hr 30 mg PO DAILY metoprolol succinate 50 mg tablet extended release 24 hr 50 mg PO DAILY levothyroxine 50 mcg capsule 50 mcg PO DAILY Rx Instructions: take 1/2hr to and hr before breakfast on empty stomach timolol 0.5 % drops 1 drp EACH EYE Q12H metformin 500 mg tablet 500 mg PO BIDWMEAL Other Ambulatory Orders: Comprehensive Metabolic Panel (Routine) Timeframe: 1 Week Location: Determined by Patient Ordered By: Perla Mackey Date of admission: 11/22/25 13:27 Primary Care Provider: PHYSICIAN,CHAIR FRAME BUILDER Admitting Provider: Talya Chambers Attending physician on admission: Talya Chambers Condition: Stable Quality VTE Prophylaxis VTE prophylaxis: pharmacologic ordered Hospitalist MIPS Heart Failure (Exclusion) Patient has history of Heart Transplant or Left Ventricular Assistive Device?: No IF YES, STOP HERE Heart Failure (Qualifier) Patient has current or prior documentation of LVEF less than or equal to 40%, or mod/servere depressed LVSF?: No IF NO, STOP HERE
== END 2025-11-24 13:49 | disposition home or self-care (01) | DRG 641 ==
LOC: ANHED 20:08 → ANH2MED 22:17
PROVIDERS: Internal Medicine Nephrology; Physician Assistant; Admitting Provider Internal Medicine; Emergency Provider Emergency Medicine
DX: E83.52 Hypercalcemia (principal); N25.81 Secondary hyperparathyroidism of renal origin; N17.9 Acute kidney failure, unspecified; I12.9 Hypertensive chronic kidney disease with stage 1 through stage 4 chronic kidney disease, or unspecified chronic kidney disease; N18.32 Chronic kidney disease, stage 3b; E11.22 Type 2 diabetes mellitus with diabetic chronic kidney disease; K59.00 Constipation, unspecified; I25.10 Atherosclerotic heart disease of native coronary artery without angina pectoris; F32.A Depression, unspecified; R25.1 Tremor, unspecified; R41.0 Disorientation, unspecified; Z66 Do not resuscitate; Z96.652 Presence of left artificial knee joint; Z79.84 Long term (current) use of oral hypoglycemic drugs; I25.2 Old myocardial infarction; Z95.5 Presence of coronary angioplasty implant and graft; Z85.528 Personal history of other malignant neoplasm of kidney
CPT/HCPCS: 36415; 71045; 78306; 80053; 80069; 82310; 82340; 82533; 82570; 82948; 83003; 83735; 84156; 84300; 84443; 85025; 93005; 96361; 99285; A9270; A9503; G0378; J0630; J1650; J1815; J2430; J7030; J7060